=== PATIENT | male | born 1955 | race Caucasian/White ===

== ENCOUNTER → 2020-12-13 13:54 | Outpatient (CLI) | payer MEDICARE, SELFPAY ==
[2020-06-15 10:31] VITALS: BMI 28.7
--- NOTE | 2020-12-13 13:59 | CT_ITS ---
STUDY: CT SCAN FOOT LEFT REASON FOR EXAM: Male, 65 years old. FX OF TALUS RADIATION DOSAGE (If Supplied By Facility): CTDIvol = ( 15.35 ) mGy, DLP = ( 372.95 ) mGycm. Individualized dose optimization techniques were used for this CT.? TECHNIQUE: Multiple axial tomographic images were obtained without intravenous contrast aspiration. Coronal and sagittal reconstruction was obtained as well. COMPARISON: None. FINDINGS: There is evidence of a plantar spur of the calcaneus. Questionable tiny avulsion fracture along the anterior aspect of the first cuneiform bone at the level of the first tarsometatarsal joint. Soft tissue swelling. CT/Extremity Lower without Contra IMPRESSION: Questionable nondisplaced avulsion fracture along the anterior aspect of the first cuneiform bone. Calcaneal plantar spur. Soft tissue swelling. Electronically Signed: Indio Orozco MD at 14:37 EDT , Service support ,
== END ==
PROVIDERS: PCP Family Medicine; Referring Provider Orthopaedic Surgery; Visit Provider Orthopaedic Surgery
DX: S92.125A Nondisplaced fracture of body of left talus, initial encounter for closed fracture (principal); X58.XXXA Exposure to other specified factors, initial encounter; M77.32 Calcaneal spur, left foot
CPT/HCPCS: 73700

== ENCOUNTER 2022-02-17 11:15 | Inpatient (IN) | payer MEDICARE, SELFPAY ==
[2022-02-17] VITALS (12 sets, daily range): BP systolic 128–157; BP diastolic 74–94; PULSE 48–68; RESP 16–18; TEMP 36.5–36.7; O2SAT 98–100; BMI 27.1; BMI 27.6
--- NOTE | 2022-02-17 07:09 | ECHOD_ITS ---
Reason For Study: Murmur Procedure This was a 2D Doppler, Color Flow transthoracic echocardiogram. The exam was of adequate technical quality. Exam performed in department. Left Ventricle Normal LV size. Left ventricular systolic function is normal. The estimated ejection fraction is 65 %. No evidence for diastolic dysfunction. No regional wall motion abnormalities noted. Right Ventricle Normal RV size. Normal systolic function. Atria The left atrium is mildly enlarged. Normal right atrium. No doppler evidence for ASD. Mitral Valve There is no mitral annular calcification. Normal mitral valve. Mild (1+) mitral valve insufficiency. Tricuspid Valve Normal tricuspid valve. Mild tricuspid valve insufficiency. Right ventricular systolic pressure estimated to be 28 mmHg. Aortic Valve Trisinus/trileaflet aortic valve. Mild diffuse aortic valve thickening. Moderate focal aortic valve calcification. Pulmonic Valve The pulmonic valve is not well visualized. Mild (1+) pulmonic valve insufficiency. Great Vessels Normal sized aortic root. Pericardium/Pleural No pericardial effusion. MMode/2D Measurements & Calculations LVIDd: 5.3 cm IVSd: 1.2 cm Ao root diam: 3.5 cm LVIDs: 3.4 cm LVPWd: 1.0 cm RVDd: 3.8 cm FS: 36.7 % LAV(MOD-bp): 67.5 ml LVAd ap4: 27.3 cm2 SV(MOD-sp4): 54.0 ml LAV(MOD-bp) Indexed: 32.7 ml/m2 LVLd ap4: 7.9 cm LAV(MOD-sp2): 54.3 ml EDV(MOD-sp4): 78.7 ml LAV(MOD-sp4): 74.6 ml EDV(sp4-el): 80.0 ml LVAs ap4: 13.6 cm2 LVLs ap4: 6.5 cm ESV(MOD-sp4): 24.8 ml ESV(sp4-el): 24.1 ml EF(MOD-sp4): 68.6 % EF(sp4-el): 69.9 % SV(sp4-el): 55.9 ml LA A4 area: 24.2 cm2 LA dimension(2D): 4.4 cm RA A4 area: 14.7 cm2 Doppler Measurements & Calculations MV E max jean-pierre: 86.0 cm/sec Lat Peak E' Jean-Pierre: 10.2 cm/sec Med Peak E' Jean-Pierre: 7.7 cm/sec MV A max jean-pierre: 79.7 cm/sec E/E' lat: 8.4 E/E' med: 11.2 MV E/A: 1.1 Ao V2 max: 185.6 cm/sec LV V1 max: 146.5 cm/sec PA V2 max: 114.3 cm/sec Ao max P.8 mmHg LV V1 max P.6 mmHg Ao V2 mean: 113.6 cm/sec Ao mean P.0 mmHg Ao V2 VTI: 35.2 cm TR max jean-pierre: 248.1 cm/sec TR max P.6 mmHg ECHO/Echo Complete Interpretation Summary Left ventricular systolic function is normal. The estimated ejection fraction is 65 %. The left atrium is mildly enlarged. Mild (1+) mitral valve insufficiency. Mild tricuspid valve insufficiency. Mild diffuse aortic valve thickening. Moderate focal aortic valve calcification. Mild (1+) pulmonic valve insufficiency. Right ventricular systolic pressure estimated to be 28 mmHg. No evidence for diastolic dysfunction. Ordering Physician: Johnnie Montez Referring Physician: Luis Conroy Performed By: Starla Dunbar, NELIDA, RVT
--- NOTE | 2022-02-17 08:33 | STRESSREP_ITS ---
Stress Test Report Date: 02-17-2022 Procedure: Pharmacologic stress nuclear imaging study Indications: Angina pectoris; coronary artery calcification; hyperlipidemia; hypertension Consent: Per the patient Procedure: The patient underwent pharmacologic (Regadenoson 0.4mg ) evaluation with a peak heart rate of 112 beats per minute (73%predicted maximal heart rate) and a resting blood pressure of 158/90 mmHg and a peak blood pressure of 158/90 mmHg. The baseline ECG demonstrated sinus bradycardia. The peak pharmacologic ECG demonstrated no obvious ECG changes. There were no cardiac dysrhythmias pretest, during pharmacologic infusion, or recovery. There was no complaint of chest discomfort during pharmacologic infusion or recovery. The examination was discontinued secondary to completion of protocol. Impression: 1. Pharmacologic (Regadenoson) evaluation 2. Peak pharmacologic ECG with no obvious ECG changes. 3. There were no cardiac dysrhythmias pretest, during pharmacologic infusion, or recovery. 4. Nuclear images pending Myocardial perfusion imaging study: Technique: The patient was injected with 13.9 millicuries of technetium 99m Cardiolite and subsequently rest SPECT Cardiolite nuclear imaging was obtained in the horizontal long, vertical long, and short axis views. The patient underwent pharmacologic (Regadenoson) evaluation with a peak heart rate of 112 beats per minute (73% percent predicted maximal heart rate) and a resting blood pressure of 158/90 mmHg and a peak blood pressure of 158/90 mmHg. The patient was inj ected with 43.4 millicuries of technetium 99m Cardiolite and subsequently stress SPECT Cardiolite nuclear imaging was obtained in the horizontal long, vertical long, and short axis views. A gated Cardiolite study at peak stress was obtained. Interpretation: Rest and stress SPECT Cardiolite nuclear imaging status post realignment, normalization, and attenuation correction demonstrate at rest relative uniform tracer uptake and myocardial perfusion appearing within normal limits. Status post stress there is notation of diminished myocardial perfusion/tracer uptake in portions of the mid to distal anterior, anterior apical, and inferior apical segments. There is diminished end-systolic thickening and brightening. The gated Cardiolite study demonstrates myocardial thickening and inward wall motion. The reported LVEF is 61%. Impression: 1. Rest and stress SPECT current nuclear imaging demonstrate myocardial perfusion changes concerning for an area of stress-induced myocardial ischemia involving portions of the mid to distal anterior, anterior apical, and inferoapical segments. 2. The gated Cardiolite study reports an LVEF of 61%. This note was generated with [employer] software. It may contain incorrect words, spelling, and punctuation that were not noted in checking the note before signing.
--- NOTE | 2022-02-17 10:30 | RAD_ITS ---
STUDY: X-RAY CHEST REASON FOR EXAM: Male, 67 years old. chest pain TECHNIQUE: PA or AP COMPARISON: None. FINDINGS: Mild right lower lobe fibrosis or atelectasis. There is no demonstrated pleural abnormality. Normal size heart. Normal mediastinum and nicolas. Normal visualized pulmonary arteries. Atherosclerotic vascular calcification of the aortic arch Degenerative changes of thoracic spine. Right posterior lateral fourth, fifth, sixth, and seventh rib fractures age indeterminate. Status post left shoulder reverse arthroplasty. Left posterior lateral third, fourth, fifth, and sixth rib fractures age indeterminate. There is no demonstrated abnormality of the visualized soft tissue structures of the upper abdomen. RAD/Chest 1 View IMPRESSION: Mild right lower lobe fibrosis or atelectasis. Bilateral rib fractures detailed above age-indeterminate. Left shoulder reverse arthroplasty. Electronically Signed: Cesar Albarran MD, SAMEERA at 10:58 EDT ,
[2022-02-17 10:42] LABS: Absolute Lymphocyte Count 1.22 X10^3/uL (0.83-4.51); Absolute Neutrophil Count 5.1 X10^3/uL (2.0-7.7); Basophil# 0.05 X10^3/uL; Basophil% 0.7 % (0-1); Eosinophil# 0.14 X10^3/uL; Eosinophils% 1.9 % (0-5); Hematocrit 42.1 % (40-54); Hemoglobin 14.2 g/dL (13.0-16.5); Lymphocyte # 1.22 X10^3/ul (0.83-4.51); Lymphocyte % 16.8 % (19-41); Mean Corp Hgb Conc 33.7 g/dL (32-36); Mean Corpuscular Hgb 29.8 pg (27.0-32.0); Mean Corpuscular Volume 88.4 fL (80-94); Mean Platelet Vol. 9.2 fl (6.2-12.0); Monocyte# 0.71 X10^3/uL; Monocyte% 9.8 % (0-10); NRBC Flagged by Analyzer 0 % (0-5); Neutrophil # 5.11 X10^3/uL (2.7-7.7); Neutrophil % 70.5 % (47-70); Platelet Count 230 K/mm3 (150-450); RBC Distribution Width CV 13.2 % (11.6-14.6); RBC Distribution Width SD 42.6 fl (35.1-43.9); Red Blood Count 4.76 M/mm3 (4.6-6.2); White Blood Count 7.3 K/mm3 (4.4-11.0)
[2022-02-17 11:02] LABS: Anion Gap 6 (5-15); BUN 17 mg/dL (7-18); BUN/Creat Ratio 21.4 RATIO (10-20); Calcium,Total 9.2 mg/dL (8.5-10.1); Chloride 109 mmol/L (98-107); EST Glomerular Filtration Rate 103 mL/min (>60); Est Glom Filt Rate - Afr Amer 125 mL/min (>60); Estimated Creatinine Clearance 91.25 ml/min; Glucose 101 mg/dL (74-106); Sodium Level 140 mmol/L (136-145)
[2022-02-17 11:03] LABS: International Normalized Ratio 1.1; Prothrombin Time (Protime)PT. 13.5 SECONDS (11.7-14.9)
--- NOTE | 2022-02-17 11:17 | PCM.CONS.C ---
Assessment & Plan Assessment/Plan (1) Angina pectoris: PLAN: The patient has symptoms compatible with angina pectoris. He has been found to have an abnormal pharmacologic stress nuclear imaging study. He has been recommended for further evaluation with diagnostic cardiac catheterization. The procedure and risks have been discussed with him. He was agreeable to this approach. (2) Abnormal stress test: PLAN: Again the patient has an abnormal pharmacologic stress nuclear imaging study concerning for stress-induced myocardial ischemia. He will continue medical therapy as deemed appropriate. He will proceed with further evaluation with diagnostic cardiac catheterization. (3) Coronary artery calcification: PLAN: The patient has been previously noted on his other noninvasive studies to have concerns of coronary artery calcification. This does increase his risk of having atherosclerotic coronary artery disease. He has now been found to have an abnormal pharmacologic stress nuclear imaging study. He will continue medical therapy as deemed appropriate. (4) Cardiac murmur: PLAN: He did have a transthoracic echocardiogram performed. He does have an element of mild MR/TR. He also has mild diffuse thickening of the aortic valve with moderate focal aortic valve calcification. These findings may be contributing to his cardiac murmur. (5) Pure hypercholesterolemia: PLAN: The patient will continue risk factor evaluation/care as deemed appropriate. (6) Essential hypertension: PLAN: The patient's blood pressure will be followed. He will continue medical management. Addt'l Comments The above was discussed and reviewed with the patient. He was agreeable to this approach. This note was generated using a voice recognition system and there may be incorrect words, spelling or punctuation that were not noted when reviewing the office note prior to saving. HPI Consult Data Date of Consult: 02/17/22 HPI Narrative HPI Narrative: LISANDRO HYDE, is a 67 year old white male who presents for angina pectoris and an abnormal stress nuclear imaging study concerning for anterior myocardial ischemia. He states that he has been having, for some time now, episodes with exertion of a left sided left pectoral chest discomfort.? He places his hand over his left chest area.? He states it feels like a drag on him when he has this sensation.? He also notes he will have to stop and slow down my breathing .? The discomfort spontaneously resolves.? He feels he can then move on.? It does not happen every time he exerts himself.? It does not happen at rest or at night.? He does not believe it has been associated with nausea, emesis, or diaphoresis.? There has been no reports of palpitations, near-syncope, or syncope.? He states he has not undergone any cardiovascular evaluation for the symptoms. It appears that in January 2021 he was evaluated at a emergency department.? He underwent evaluation which did include a chest CT scan.? Based upon the report he had no evidence of thromboembolic disease.? There was a comment that he had coronary artery calcifications present. He had an ECG in the outpatient office on 01-20-2022. At that time he was in sinus bradycardia with no acute ECG changes. Since that time he has undergone further outpatient noninvasive evaluation. This has included a transthoracic echocardiogram and a stress nuclear imaging study (pharmacologic). Of note his pharmacologic stress nuclear imaging study, which is noted below, demonstrated myocardial perfusion changes in the anterior, anteroapical, inferoapical distributions concerning for stress-induced myocardial ischemia. Thus, it was recommended patient be brought into the hospital for further evaluation and care with diagnostic cardiac catheterization. FOR[facility], [facility] Medical History bilateral shoulder surgery Essential hypertension GERD (gastroesophageal reflux disease) HTN (hypertension) Hyperlipidemia Pure hypercholesterolemia Home Medications atorvastatin 40 mg tablet 40 mg PO QHS 01/17/22 [History Last Taken Unknown] hydrochlorothiazide 12.5 mg tablet 12.5 mg PO DAILY 01/17/22 [History Last Taken Unknown] lisinopril 40 mg tablet 40 mg PO DAILY 01/17/22 [History Last Taken Unknown] sertraline 100 mg tablet 100 mg PO DAILY 01/17/22 [History Last Taken Unknown] aspirin 81 mg chewable tablet 81 mg PO DAILY PRN Pain 01/20/22 [History Last Taken Unknown] Allergy/AdvReac Type Severity Reaction Status Date / Time codeine Allergy Mild n/v Verified 01/20/22 09:59 Sulfa (Sulfonamide AdvReac Mild gi upset Verified 01/20/22 09:59 Antibiotics) Family History Mother Breast cancer Surgical History H/O sinus surgery History of arthroplasty of left shoulder History of shoulder replacement Social History household members: spouse housing: house current occupational status: retired pets and animals: Yes Smoking Status: Never smoker alcohol intake: current alcohol intake frequency: holidays/special occasions only substance use type: former substance user and marijuana caffeine: Yes Type: coffee Number of servings: 3 what type of physical activity do you participate in: none do you feel safe at home: Yes ROS Constitutional Constitutional: Reports as per HPI Eyes Eyes: Reports as per HPI ENT HEENT: Reports as per HPI Cardiovascular Cardiovascular: Reports chest pain with activity and dyspnea on exertion Respiratory/Chest Respiratory/Chest: Reports dyspnea on exertion Gastrointestinal Gastrointestinal: Reports as per HPI Genitourinary Genitourinary: Reports as per HPI Musculoskeletal Musculoskeletal: Reports as per HPI Integumentary Integumentary: Reports as per HPI Neurologic Neurologic: Reports as per HPI Psychiatric Psychiatric: Reports as per HPI Physical Exam Const alert, oriented x3, no apparent distress and healthy appearing Orientation / Consciousness: awake HEENT normocephalic, head/scalp atraumatic and hearing grossly normal bilaterally Eyes PERRL, EOMs intact bilaterally, conjunctivae normal and no scleral icterus Neck full ROM, supple and no JVD Carotids: normal carotid upstroke Resp normal respiratory effort and clear to auscultation bilaterally Cardio regular rate, regular rhythm, S1 normal heart sound and S2 normal heart sound Heart Sounds: murmur systolic II/ mid left sternal border and LVOT GI normal to inspection, nondistended, normoactive bowel sounds Extremity no pedal edema Skin no rashes or lesions noted Risk Stratification Risk Stratification Applicable: Yes Age >/= 65: Yes >/= 3 CAD Risk Factors (HTN, HLD, DM, family hx of CAD, or current smoker): No Aspirin Use in the Past 7 Days: Yes Severe Angina (>/= episodes in 24 hours): Yes EKG ST Changes >/= 0.5mm: No Positive Cardiac Marker: No CHRISTIANO Risk Stratification Score: 3 CHRISTIANO % Risk: 13% Risk Objective Data Vital Signs: Weight: 189 lb Body Mass Index (BMI) 27.1 Lab / Micro Data Result Diagrams: 02/17/22 10:35 02/17/22 10:35 Labs: Laboratory Results - last 24 hr 02/17/22 10:35: WBC 7.3, RBC 4.76, Hgb 14.2, Hct 42.1, MCV 88.4, MCH 29.8, MCHC 33.7, RDW Std Deviation 42.6, RDW Coeff of Juan 13.2, Plt Count 230, MPV 9.2, Immature Gran % (Auto) 0.300, Neut % (Auto) 70.5 H, Lymph % (Auto) 16.8 L, [place] % (Auto) 9.8, Eos % (Auto) 1.9, Baso % (Auto) 0.7, Absolute Neuts (auto) 5.1, Absolute Lymphs (auto) 1.22, Nucleated RBC % 0 02/17/22 10:35: PT 13.5, INR 1.1 02/17/22 10:35: Sodium 140, Potassium 4.0, Chloride 109 H, Carbon Dioxide 25.0, Anion Gap 6, BUN 17, Creatinine 0.80, Estim Creat Clear Calc 91.25, Est GFR (MDRD) Af Amer 125, Est GFR (MDRD) Non-Af 103, BUN/Creatinine Ratio 21.4 H, Glucose 101, Calcium 9.2 Cardiology Labs/Tests 02/17/22 10:35: WBC 7.3, RBC 4.76, Hgb 14.2, Hct 42.1, MCV 88.4, MCH 29.8, MCHC 33.7, Plt Count 230, MPV 9.2, Immature Gran % (Auto) 0.300, Neut % (Auto) 70.5 H, Lymph % (Auto) 16.8 L, [place] % (Auto) 9.8, Eos % (Auto) 1.9, Baso % (Auto) 0.7, Absolute Neuts (auto) 5.1, Nucleated RBC % 0 02/17/22 10:35: PT 13.5, INR 1.1 02/17/22 10:35: Sodium 140, Potassium 4.0, Chloride 109 H, Carbon Dioxide 25.0, Anion Gap 6, BUN 17, Creatinine 0.80, Est GFR (MDRD) Af Amer 125, Est GFR (MDRD) Non-Af 103, BUN/Creatinine Ratio 21.4 H, Glucose 101, Calcium 9.2 Rhythm: Sinus rhythm EKG: Sinus rhythm/sinus bradycardia ECHO: Interpretation Summary Left ventricular systolic function is normal. The estimated ejection fraction is 65 %. The left atrium is mildly enlarged. Mild (1+) mitral valve insufficiency. Mild tricuspid valve insufficiency. Mild diffuse aortic valve thickening. Moderate focal aortic valve calcification. Mild (1+) pulmonic valve insufficiency. Right ventricular systolic pressure estimated to be 28 mmHg. No evidence for diastolic dysfunction. Stress Test: Stress Test Report Date: 02-17-2022 Procedure: Pharmacologic stress nuclear imaging study? Indications: Angina pectoris; coronary artery calcification; hyperlipidemia; hypertension Consent: Per the patient Procedure: The patient underwent pharmacologic (Regadenoson 0.4mg ) evaluation with a peak heart rate of 112 beats per minute (73%predicted maximal heart rate) and a resting blood pressure of 158/90 mmHg and a peak blood pressure of 158/90 mmHg. The baseline ECG demonstrated sinus bradycardia.? The peak pharmacologic ECG demonstrated no obvious ECG changes. There were no cardiac dysrhythmias pretest, during pharmacologic infusion, or recovery. There was no complaint of chest discomfort during pharmacologic infusion or recovery. The examination was discontinued secondary to completion of protocol. Impression: 1.? Pharmacologic (Regadenoson) evaluation 2.? Peak pharmacologic ECG with no obvious ECG changes. 3.? There were no cardiac dysrhythmias pretest, during pharmacologic infusion, or recovery. 4.? Nuclear images pending Myocardial perfusion imaging study: Technique: The patient was injected with 13.9 millicuries of technetium 99m Cardiolite and subsequently rest SPECT Cardiolite nuclear imaging was obtained in the horizontal long, vertical long, and short axis views. The patient underwent pharmacologic (Regadenoson) evaluation with a peak heart rate of 112 beats per minute (73% percent predicted maximal heart rate) and a resting blood pressure of 158/90 mmHg and a peak blood pressure of 158/90 mmHg. The patient was injected with 43.4 millicuries of technetium 99m Cardiolite and subsequently stress SPECT Cardiolite nuclear imaging was obtained in the horizontal long, vertical long, and short axis views.? A gated Cardiolite study at peak stress was obtained. Interpretation: Rest and stress SPECT Cardiolite nuclear imaging status post realignment, normalization, and attenuation correction demonstrate at rest relative uniform tracer uptake and myocardial perfusion appearing within normal limits.? Status post stress there is notation of diminished myocardial perfusion/tracer uptake in portions of the mid to distal anterior, anterior apical, and inferior apical segments.? There is diminished end-systolic thickening and brightening.? The gated Cardiolite study demonstrates myocardial thickening and inward wall motion.? The reported LVEF is 61%. Impression: 1.? Rest and stress SPECT current nuclear imaging demonstrate myocardial perfusion changes concerning for an area of stress-induced myocardial ischemia involving portions of the mid to distal anterior, anterior apical, and inferoapical segments. 2.? The gated Cardiolite study reports an LVEF of 61%. Radiography Diagnostic Testing: Radiology Impression Chest X-Ray 02/17/22 10:30 IMPRESSION: Mild right lower lobe fibrosis or atelectasis. Bilateral rib fractures detailed above age-indeterminate. Left shoulder reverse arthroplasty. Electronically Signed: Cesar Albarran MD, SAMEERA at 10:58 EDT ,
--- NOTE | 2022-02-17 12:09 | CASEMGMT ---
According to [facility], the following are in-network tertiary facilities: [facility], [place], [facility], [facility], [facility], [facility], and . Juan Antonio [facility]
--- NOTE | 2022-02-17 12:46 | CL.D_ITS ---
Patient Name: LISANDRO HYDE Study Date: 02/17/2022 Performing: Johnnie Montez MD Ht: 70 inches 177.8 cm : 1955 Wt: 191.2 lbs 86.63 kg Age: 67 Gender: male BSA: 2.05 PROCEDURE(S) PERFORMED [id number])[facility] CLINICAL PROFILE AND INDICATIONS Indications: Worsening Angina, Suspected CAD, Valvular Disease Heart Failure: None Stress/Imaging Date: 02/17/2022tress Test with SPECT MPI: Positive Intermediate Risk Angina Classification Anginal Classification w/in 2 Weeks: CCS III CAD Presentations: Unstable angina. CONCLUSIONS [place] Multivessel CAD Left to Right collateral flow RECOMMENDATIONS Risk factor modification Medical therapy Surgery consult for coronary revascularization DESCRIPTION OF PROCEDURE The patient arrived to the procedure lab. The risks and benefits of the procedure as well as a full description of our services here and current unavailability of surgical backup were fully explained to the patient and/or their significant other prior to the catheterization. The Timeout was completed, verifying the correct patient and procedure. The patient's procedural site was prepped and draped in the usual fashion. Local anesthetic was given subcutaneously to right radial region with Lidocaine 2%. Using a modified Seldinger technique, arterial access was obtained via the right radial artery, a 6Fr sheath was inserted. Left Coronary Artery selective angiography was performed in multiple views using a 5 Fr. 4.0 [place] catheter. Right Coronary Artery selective angiography was then performed in multiple views using a 5 Fr. 4.0 [place] catheter. Left Coronary Artery selective angiography was performed in multiple views using a 5 Fr. JL3.5 catheter.The arterial sheath was pulled and a TR Band was applied for hemostasis. 9cc of air CORONARY ANGIOGRAPHY DOMINANCE: Right Dominant LEFT HEART ASSESSMENT Left Ventricular Ejection Fraction: Not assessed LEFT MAIN: Mild calcification LEFT ANTERIOR DESCENDING ARTERY: PROX LAD: Severe calcification, Mild luminal irregularities less than 30% MID LAD: at the level of the SP and DX: subtotally occluded with the mid to distal LAD filling late SEPTAL: proximal: 85 % Stenosis CIRCUMFLEX ARTERY: Mild luminal irregularities OM 1: Mid - eccentric: 75 % Stenosis OM 2: Proximal - 50 % Stenosis, Mid - 25 % Stenosis RIGHT CORONARY ARTERY: PROX RCA: Severe calcification, Mild luminal irregularities less than 30% MID RCA: Mild luminal irregularities less than 30% RT PDA: Ostial - subtotally occluded: remainder of the vessel filling late COLLATERAL FLOW: Collateral flow from Left to Right COMPLICATIONS No Complications PROCEDURE MEDICATIONS Fentanyl 50 mcg IV Versed 1 mg IV Fentanyl 50 mcg IV Versed 1 mg IV Aspirin (325mg) 1 Tabs PO @ 02/17/2022 11:10:26 SUMMARY OF HEMODYNAMIC DATA Time AIR REST ECG 10:41:44 ECG 11:33:47 AO 113/72 (90) SA 12:01:42 Signed By Johnnie Montez MD On 02/17/2022 12:46:06 Johnnie Montez MD
[2022-02-17 13:29] LABS: Partial Thromboplast Time 30.4 Seconds (24.1-36.2)
[2022-02-17] MEDS: 0.9% Normal Saline 1,000 ML 75 ML IV (14:18)
[2022-02-17] MEDS: HEPARIN/D5w 25,000 UNITS 25,000 UNITS/250 ML IV.SOLN. 12 UNITS CONT INF (16:54)
[2022-02-17] MEDS: Metoprolol Tartrate 25 MG Tablet PO (21:43)
[2022-02-17] MEDS: Atorvastatin Calcium 40 MG Tablet PO (21:43)
[2022-02-17 22:52] LABS: Partial Thromboplast Time 53.7 Seconds (24.1-36.2)
[2022-02-17] MEDS: Heparin Injection (Vial) 5,000 UNIT/ML VIAL IV (23:10)
[2022-02-18] VITALS (11 sets, daily range): BP systolic 128–146; BP diastolic 74–82; PULSE 51–74; RESP 16–18; TEMP 36.5–37.3; O2SAT 97–99
[2022-02-18 05:59] LABS: Absolute Lymphocyte Count 1.64 X10^3/uL (0.83-4.51); Absolute Neutrophil Count 4.6 X10^3/uL (2.0-7.7); Basophil# 0.04 X10^3/uL; Basophil% 0.5 % (0-1); Eosinophil# 0.25 X10^3/uL; Eosinophils% 3.4 % (0-5); Hematocrit 43.8 % (40-54); Hemoglobin 14.3 g/dL (13.0-16.5); Lymphocyte # 1.64 X10^3/ul (0.83-4.51); Lymphocyte % 22.4 % (19-41); Mean Corp Hgb Conc 32.6 g/dL (32-36); Mean Corpuscular Hgb 29.4 pg (27.0-32.0); Mean Corpuscular Volume 89.9 fL (80-94); Mean Platelet Vol. 9.5 fl (6.2-12.0); Monocyte# 0.78 X10^3/uL; Monocyte% 10.6 % (0-10); NRBC Flagged by Analyzer 0 % (0-5); Neutrophil % 62.8 % (47-70); Platelet Count 230 K/mm3 (150-450); RBC Distribution Width CV 13.2 % (11.6-14.6); RBC Distribution Width SD 43.6 fl (35.1-43.9); Red Blood Count 4.87 M/mm3 (4.6-6.2); White Blood Count 7.3 K/mm3 (4.4-11.0)
[2022-02-18 06:10] LABS: Partial Thromboplast Time 82.4 Seconds (24.1-36.2)
[2022-02-18 06:33] LABS: Anion Gap 4 (5-15); BUN 15 mg/dL (7-18); BUN/Creat Ratio 17.9 RATIO (10-20); Chloride 107 mmol/L (98-107); Creatinine, Serum 0.84 mg/dL (0.70-1.30); EST Glomerular Filtration Rate 97 mL/min (>60); Est Glom Filt Rate - Afr Amer 117 mL/min (>60); Glucose 97 mg/dL (74-106); Potassium 5.1 mmol/L (3.5-5.1); Sodium Level 137 mmol/L (136-145)
--- NOTE | 2022-02-18 08:10 | NURSING ---
In spoke to Marina at [facility] transfer line she stated they are still waiting on a bed and that they are d/c dependent.
[2022-02-18] MEDS: Aspirin 81 MG TAB.CHEW PO (08:54)
[2022-02-18] MEDS: Metoprolol Tartrate 25 MG Tablet PO (08:54)
[2022-02-18] MEDS: Lisinopril 40 MG Tablet PO (08:54)
[2022-02-18] MEDS: hydroCHLOROthiazide 12.5mg 12.5 MG PO (08:54)
[2022-02-18] MEDS: Sertraline 100 MG Tablet PO (08:54)
[2022-02-18] MEDS: HEPARIN/D5w 25,000 UNITS 25,000 UNITS/250 ML IV.SOLN. 12 UNITS CONT INF (08:59)
--- NOTE | 2022-02-18 12:26 | PCM.PN.CARD ---
Subjective Subjective The patient is awake and alert. He denies any ongoing chest discomfort. Objective Data Vital Signs: Vital Signs Temp Pulse Resp BP Pulse Ox O2 Del Method 98.0 F 62 16 133/81 H 98 Room Air 02/18/22 08:51 02/18/22 08:54 02/18/22 08:51 02/18/22 08:54 02/18/22 08:51 02/18/22 08:51 Oxygen Delivery Method Room Air Weight: 192 lb 10.944 oz Body Mass Index (BMI) 27.6 Intake & Output: Intake and Output for Last 24 Hours 02/16/22 02/17/22 02/18/22 23:59 23:59 23:59 Intake Total 716.5 / 716.5 127.63 / 127.63 Balance 716.5 / 716.5 127.63 / 127.63 Lab / Micro Data Result Diagrams: 02/18/22 05:25 02/18/22 05:25 Labs: Laboratory Results - last 24 hr 02/17/22 10:35: APTT 30.4 02/17/22 22:45: APTT 53.7 H 02/18/22 05:25: WBC 7.3, RBC 4.87, Hgb 14.3, Hct 43.8, MCV 89.9, MCH 29.4, MCHC 32.6, RDW Std Deviation 43.6, RDW Coeff of Juan 13.2, Plt Count 230, MPV 9.5, Immature Gran % (Auto) 0.300, Neut % (Auto) 62.8, Lymph % (Auto) 22.4, [place] % (Auto) 10.6 H, Eos % (Auto) 3.4, Baso % (Auto) 0.5, Absolute Neuts (auto) 4.6, Absolute Lymphs (auto) 1.64, Nucleated RBC % 0 02/18/22 05:25: Sodium 137, Potassium 5.1, Chloride 107, Carbon Dioxide 26.0, Anion Gap 4 L, BUN 15, Creatinine 0.84, Estim Creat Clear Calc 86.90, Est GFR (MDRD) Af Amer 117, Est GFR (MDRD) Non-Af 97, BUN/Creatinine Ratio 17.9, Glucose 97, Calcium 9.0 02/18/22 05:25: APTT 82.4 H Micro: Microbiology 02/17/22 15:25 Nasal Secretion SARS-CoV-2 Antigen (Rapid) - Final Cardiology Labs/Tests 02/17/22 10:35: APTT 30.4 02/17/22 22:45: APTT 53.7 H 02/18/22 05:25: WBC 7.3, RBC 4.87, Hgb 14.3, Hct 43.8, MCV 89.9, MCH 29.4, MCHC 32.6, Plt Count 230, MPV 9.5, Immature Gran % (Auto) 0.300, Neut % (Auto) 62.8, Lymph % (Auto) 22.4, [place] % (Auto) 10.6 H, Eos % (Auto) 3.4, Baso % (Auto) 0.5, Absolute Neuts (auto) 4.6, Nucleated RBC % 0 02/18/22 05:25: Sodium 137, Potassium 5.1, Chloride 107, Carbon Dioxide 26.0, Anion Gap 4 L, BUN 15, Creatinine 0.84, Est GFR (MDRD) Af Amer 117, Est GFR (MDRD) Non-Af 97, BUN/Creatinine Ratio 17.9, Glucose 97, Calcium 9.0 02/18/22 05:25: APTT 82.4 H Rhythm: Sinus rhythm Physical Exam Const alert, oriented x3, no apparent distress and healthy appearing Orientation / Consciousness: awake HEENT normocephalic, head/scalp atraumatic and hearing grossly normal bilaterally Eyes PERRL, EOMs intact bilaterally, conjunctivae normal and no scleral icterus Neck full ROM, supple and no JVD Carotids: normal carotid upstroke Resp normal respiratory effort and clear to auscultation bilaterally Cardio regular rate, regular rhythm, S1 normal heart sound and S2 normal heart sound Heart Sounds: murmur systolic II/ mid left sternal border and LVOT GI normal to inspection, nondistended, normoactive bowel sounds Extremity no pedal edema Extremity Narrative: Right radial artery area: Pulse 2+/4+: No bruit: No ecchymoses: No hematoma Skin no rashes or lesions noted Psych mental status grossly normal Assessment & Plan Assessment/Plan (1) Angina pectoris: PLAN: The patient has symptoms compatible with angina pectoris. He has been found to have an abnormal pharmacologic stress nuclear imaging study. The patient has undergone further evaluation with diagnostic cardiac catheterization. He was found to have angiographically significant appearing CAD especially involving the LAD, LCx, and RCA distributions. He is continuing medical therapy. He is pending transfer to [facility] for further evaluation for CABG. (2) Coronary artery calcification: PLAN: The patient has been previously noted on his other noninvasive studies to have concerns of coronary artery calcification. This does increase his risk of having atherosclerotic coronary artery disease. He has now been found to have an abnormal pharmacologic stress nuclear imaging study. He has undergone additional evaluation and care as noted. At the present time he will continue medical therapy. This does include IV heparin. He is pending transfer to [facility] for CABG. (3) Cardiac murmur: PLAN: He did have a transthoracic echocardiogram performed. He does have an element of mild MR/TR. He also has mild diffuse thickening of the aortic valve with moderate focal aortic valve calcification. These findings may be contributing to his cardiac murmur. (4) Pure hypercholesterolemia: PLAN: The patient will continue risk factor evaluation/care as deemed appropriate. (5) Essential hypertension: PLAN: The patient's blood pressure will be followed. He will continue medical management. Addt'l Comments This note was generated using a voice recognition system and there may be incorrect words, spelling or punctuation that were not noted when reviewing the office note prior to saving. Procedure Criteria Type of Procedure Procedure Type: Elective Elective Risks - COVID COVID Risk Discussion: The surgeon/proceduralist and patient have discussed in detail the risk of exposure to and/or potential harm posed by the COVID-19 virus with having a surgery/procedure at this time versus the risk of delaying the surgery/procedure. It is not possible to know either the risk of delaying the surgery or procedure or chance of getting an infection with perfect accuracy, but a joint decision was made between the patient and the surgeon/proceduralist to proceed at this time with the scheduled surgery/procedure as indicated on the consent form.
[2022-02-18 14:04] LABS: Partial Thromboplast Time 63.9 Seconds (24.1-36.2)
[2022-02-18 20:21] LABS: Partial Thromboplast Time 56.6 Seconds (24.1-36.2)
[2022-02-18] MEDS: ALPRAZolam 0.25 MG Tablet PO (20:54)
[2022-02-18] MEDS: Atorvastatin Calcium 40 MG Tablet PO (20:55)
[2022-02-19] VITALS (11 sets, daily range): BP systolic 118–125; BP diastolic 70–78; PULSE 47–64; RESP 12–18; TEMP 36.4–36.7; O2SAT 96–98
[2022-02-19] MEDS: HEPARIN/D5w 25,000 UNITS 25,000 UNITS/250 ML IV.SOLN. 12 UNITS CONT INF (05:05)
[2022-02-19 05:27] LABS: Partial Thromboplast Time 70.5 Seconds (24.1-36.2)
[2022-02-19 05:34] LABS: Anion Gap 6 (5-15); BUN 17 mg/dL (7-18); BUN/Creat Ratio 20.6 RATIO (10-20); Chloride 106 mmol/L (98-107); Creatinine, Serum 0.83 mg/dL (0.70-1.30); EST Glomerular Filtration Rate 98 mL/min (>60); Est Glom Filt Rate - Afr Amer 119 mL/min (>60); Estimated Creatinine Clearance 87.95 ml/min; Glucose 102 mg/dL (74-106); Potassium 4.1 mmol/L (3.5-5.1); Sodium Level 137 mmol/L (136-145)
[2022-02-19] MEDS: Lisinopril 40 MG Tablet PO (08:28)
[2022-02-19] MEDS: Aspirin 81 MG TAB.CHEW PO (08:28)
[2022-02-19] MEDS: Sertraline 100 MG Tablet PO (08:28)
[2022-02-19] MEDS: hydroCHLOROthiazide 12.5mg 12.5 MG PO (08:28)
--- NOTE | 2022-02-19 09:42 | NURSING ---
I spoke with Marina at [facility] transfer line she stated they are still waiting on a bed likely will not be today possibly tomorrow.
[2022-02-19] MEDS: Metoprolol Tartrate 25 MG Tablet 12.5 MG PO ×2 (10:35→21:03)
--- NOTE | 2022-02-19 13:03 | PN.CARD_ITS ---
Subjective Subjective The patient is awake and alert. He has been up in bed and ambulating in his room. He has had no acute cardiovascular complaints. Objective Data Vital Signs: Vital Signs Temp Pulse Resp BP Pulse Ox O2 Del Method 97.8 F 64 12 122/78 H 97 Room Air 02/19/22 08:25 02/19/22 10:35 02/19/22 08:25 02/19/22 10:35 02/19/22 08:25 02/19/22 08:30 Oxygen Delivery Method Room Air Weight: 192 lb 10.944 oz Body Mass Index (BMI) 27.6 Intake & Output: Intake and Output for Last 24 Hours 02/17/22 02/18/22 02/19/22 23:59 23:59 23:59 Intake Total 716.5 / 716.5 1127.63 / 1127.63 241.2 / 241.2 Balance 716.5 / 716.5 1127.63 / 1127.63 241.2 / 241.2 Lab / Micro Data Result Diagrams: 02/18/22 05:25 02/19/22 05:08 Labs: Laboratory Results - last 24 hr 02/18/22 13:40: APTT 63.9 H 02/18/22 19:42: APTT 56.6 H 02/19/22 05:08: Sodium 137, Potassium 4.1, Chloride 106, Carbon Dioxide 25.0, Anion Gap 6, BUN 17, Creatinine 0.83, Estim Creat Clear Calc 87.95, Est GFR (MDRD) Af Amer 119, Est GFR (MDRD) Non-Af 98, BUN/Creatinine Ratio 20.6 H, Glucose 102, Calcium 9.0 02/19/22 05:08: APTT 70.5 H Cardiology Labs/Tests 02/18/22 13:40: APTT 63.9 H 02/18/22 19:42: APTT 56.6 H 02/19/22 05:08: Sodium 137, Potassium 4.1, Chloride 106, Carbon Dioxide 25.0, Anion Gap 6, BUN 17, Creatinine 0.83, Est GFR (MDRD) Af Amer 119, Est GFR (MDRD) Non-Af 98, BUN/Creatinine Ratio 20.6 H, Glucose 102, Calcium 9.0 02/19/22 05:08: APTT 70.5 H Rhythm: Sinus rhythm; brief episode appearing compatible with an ectopic atrial tachycardia Physical Exam Const alert, oriented x3, no apparent distress and healthy appearing Orientation / Consciousness: awake HEENT normocephalic, head/scalp atraumatic and hearing grossly normal bilaterally Eyes PERRL, EOMs intact bilaterally, conjunctivae normal and no scleral icterus Neck full ROM, supple and no JVD Carotids: normal carotid upstroke Resp normal respiratory effort and clear to auscultation bilaterally Cardio regular rate, regular rhythm, S1 normal heart sound and S2 normal heart sound Heart Sounds: murmur systolic II/ mid left sternal border and LVOT GI normal to inspection, nondistended, normoactive bowel sounds Extremity no pedal edema Extremity Narrative: Right radial artery area: Pulse 2+/4+: No bruit: No ecchymoses: No hematoma Skin no rashes or lesions noted Psych mental status grossly normal Assessment & Plan Assessment/Plan (1) Angina pectoris: PLAN: The patient has symptoms compatible with angina pectoris. He has been found to have an abnormal pharmacologic stress nuclear imaging study. The patient has undergone further evaluation with diagnostic cardiac catheterization. He was found to have angiographically significant appearing CAD especially involving the LAD, LCx, and RCA distributions. He is continuing medical therapy. He is pending transfer to [facility] for further evaluation for CABG. [facility] was contacted this day. Their response was that they were hopeful for transfer tomorrow. (2) Coronary artery calcification: PLAN: The patient has been previously noted on his other noninvasive studies to have concerns of coronary artery calcification. This does increase his risk of having atherosclerotic coronary artery disease. He has now been found to have an abnormal pharmacologic stress nuclear imaging study. He has undergone additional evaluation and care as noted. At the present time he will continue medical therapy. This does include IV heparin. He is pending transfer to [facility] for CABG. (3) CAD (coronary artery disease): PLAN: The patient has been diagnosed with atherosclerotic coronary disease as noted. This has included multivessel disease especially with respect to the LAD and RCA systems (as described in the cardiac catheterization report). At the present time he will continue to be monitored. He will continue medical therapy. This does include IV heparin. Again he is pending transfer to the [facility] for CABG. (4) Cardiac dysrhythmia: PLAN: The patient did have a brief episode appearing compatible with an ectopic atrial tachycardia. He has been placed on low-dose beta-bibiana therapy with consideration to his episodes of both bradycardia and tachycardia. He will continue to be monitored. (5) Cardiac murmur: PLAN: He did have a transthoracic echocardiogram performed. He does have an element of mild MR/TR. He also has mild diffuse thickening of the aortic valve with moderate focal aortic valve calcification. These findings may be contributing to his cardiac murmur. (6) Pure hypercholesterolemia: PLAN: The patient will continue risk factor evaluation/care as deemed appropriate. (7) Essential hypertension: PLAN: The patient's blood pressure will be followed. He will continue medical management. Addt'l Comments The patient's case was discussed and reviewed with the patient, his spouse, and other family members present. This note was generated using a voice recognition system and there may be incor rect words, spelling or punctuation that were not noted when reviewing the office note prior to saving. Procedure Criteria Type of Procedure Procedure Type: Elective Elective Risks - COVID COVID Risk Discussion: The surgeon/proceduralist and patient have discussed in detail the risk of exposure to and/or potential harm posed by the COVID-19 virus with having a surgery/procedure at this time versus the risk of delaying the surgery/procedure. It is not possible to know either the risk of delaying the surgery or procedure or chance of getting an infection with perfect accuracy, but a joint decision was made between the patient and the surgeon/proceduralist to proceed at this time with the scheduled surgery/procedure as indicated on the consent form.
[2022-02-19] MEDS: ALPRAZolam 0.25 MG Tablet PO ×2 (13:55→21:03)
[2022-02-19] MEDS: Atorvastatin Calcium 40 MG Tablet PO (21:03)
[2022-02-20] MEDS: HEPARIN/D5w 25,000 UNITS 25,000 UNITS/250 ML IV.SOLN. 12 UNITS CONT INF (00:05)
[2022-02-20 03:00] VITALS: PULSE 56
[2022-02-20 03:03] VITALS: BP 125/78; PULSE 53; RESP 16; TEMP 36.9; O2SAT 95
[2022-02-20 07:00] VITALS: PULSE 54
[2022-02-20 07:06] LABS: Anion Gap 6 (5-15); BUN 21 mg/dL (7-18); Calcium,Total 9.4 mg/dL (8.5-10.1); Chloride 106 mmol/L (98-107); Creatinine, Serum 0.81 mg/dL (0.70-1.30); EST Glomerular Filtration Rate 101 mL/min (>60); Est Glom Filt Rate - Afr Amer 122 mL/min (>60); Estimated Creatinine Clearance 90.12 ml/min; Glucose 104 mg/dL (74-106); Potassium 4.2 mmol/L (3.5-5.1); Sodium Level 137 mmol/L (136-145)
--- NOTE | 2022-02-20 07:40 | DS.PCM_ITS ---
Providers Date of Admission: 02/19/22 Date of Discharge: 02/20/22 Primary Care Physician: Dr. Luis Conroy MD Reason For Visit: FAILED STRESS TEST Diagnosis Discharge Diagnosis (1) Angina pectoris: Status: Acute Code(s): I20.9 - Angina pectoris, unspecified Plan: The patient has symptoms compatible with angina pectoris. He has been found to have an abnormal pharmacologic stress nuclear imaging study. The patient has undergone further evaluation with diagnostic cardiac catheteri zation. He was found to have angiographically significant appearing CAD especially involving the LAD, LCx, and RCA distributions. He is continuing medical therapy. He is pending transfer to [facility] today for further evaluation for CABG. (2) Coronary artery calcification: Status: Acute Code(s): I25.10 - Atherosclerotic heart disease of [place] coronary artery without angina pectoris; I25.84 - Coronary atherosclerosis due to calcified coronary lesion Plan: The patient has been previously noted on his other noninvasive studies to have concerns of coronary artery calcification. This does increase his risk of having atherosclerotic coronary artery disease. He has now been found to have an abnormal pharmacologic stress nuclear imaging study. He has undergone additional evaluation and care as noted. At the present time he will continue medical therapy. This does include IV heparin. He is pending transfer to [facility] today for further evaluation for CABG. (3) CAD (coronary artery disease): Status: Acute Code(s): I25.10 - Atherosclerotic heart disease of [place] coronary artery without angina pectoris Plan: The patient has been diagnosed with atherosclerotic coronary disease as noted. This has included multivessel disease especially with respect to the LAD and RCA systems (as described in the cardiac catheterization report). At the present time he will continue to be monitored. He will continue medical therapy. This does include IV heparin. Again he is pending transfer to the [facility] today for further evaluation for CABG. (4) Cardiac dysrhythmia: Status: Acute Code(s): I49.9 - Cardiac arrhythmia, unspecified Plan: The patient did have a brief episode appearing compatible with an ectopic atrial tachycardia. He has been placed on low-dose beta-bibiana therapy with consideration to his episodes of both bradycardia and tachycardia. He will continue to be monitored. (5) Cardiac murmur: Status: Acute Code(s): R01.1 - Cardiac murmur, unspecified Plan: He did have a transthoracic echocardiogram performed. He does have an element of mild MR/TR. He also has mild diffuse thickening of the aortic valve with moderate focal aortic valve calcification. These findings may be contributing to his cardiac murmur. (6) Pure hypercholesterolemia: Status: Acute Code(s): E78.00 - Pure hypercholesterolemia, unspecified Plan: The patient will continue risk factor evaluation/care as deemed appropriate. (7) Essential hypertension: Status: Acute Code(s): I10 - Essential (primary) hypertension Plan: The patient's blood pressure will be followed. He will continue medical management. Addt'l Comments The patient was placed on additional medical therapy which included: Aspirin 81 mg p.o. daily Metoprolol tartrate 12.5 mg p.o. twice daily IV heparin Medications at Discharge Home Medications atorvastatin 40 mg tablet 40 mg PO QHS 01/17/22 hydrochlorothiazide 12.5 mg tablet 12.5 mg PO DAILY 01/17/22 lisinopril 40 mg tablet 40 mg PO DAILY 01/17/22 sertraline 100 mg tablet 100 mg PO DAILY 01/17/22 aspirin 81 mg chewable tablet 81 mg PO DAILY PRN Pain 01/20/22 Hospital Course Operations None Procedures Cardiac catheterization Summary of Care Provided Minutes Spent on Discharge: 45 Hospital Course: The patient presented on 02-17-2022 for outpatient exercise tolerance test/imaging study. This study was deemed abnormal. A recommendation was made for the patient to remain in the hospital for further evaluation with diagnostic cardiac catheterization. The patient underwent diagnostic cardiac catheterization which demonstrated angiographically significant appearing multivessel CAD. A recommendation was made for the patient to remain in the hospital pending transfer to a tertiary care center for evaluation for CABG. The patient's case was discussed, reviewed, and accepted by the [facility]. The patient remained in the hospital pending transfer to [facility] and continue to be monitored and continued medical therapy with adjustment as deemed appropriate. On this day the patient is to be transferred to the [facility] for further evaluation for CABG. Physical Exam Const alert, oriented x3, no apparent distress and healthy appearing Orientation / Consciousness: awake HEENT normocephalic, head/scalp atraumatic and hearing grossly normal bilaterally Eyes PERRL, EOMs intact bilaterally, conjunctivae normal and no scleral icterus Neck full ROM, supple and no JVD Carotids: normal carotid upstroke Resp normal respiratory effort and clear to auscultation bilaterally Cardio regular rate, regular rhythm, S1 normal heart sound and S2 normal heart sound Heart Sounds: murmur systolic II/ mid left sternal border and LVOT GI normal to inspection, nondistended, normoactive bowel sounds Extremity no pedal edema Extremity Narrative: Right radial artery area: Pulse 2+/4+: No bruit: No ecchymoses: No hematoma Skin no rashes or lesions noted Psych mental status grossly normal Weight / BMI Weight Weight: 192 lb 10.944 oz Body Mass Index (BMI) 27.6 ABG / Lab / Microbiology Data Result Diagrams: 02/18/22 05:25 02/20/22 05:57 Laboratory: Laboratory Results - last 24 hr 02/20/22 05:57: APTT 59.0 H 02/20/22 05:57: Sodium 137, Potassium 4.2, Chloride 106, Carbon Dioxide 25.0, Anion Gap 6, BUN 21 H, Creatinine 0.81, Estim Creat Clear Calc 90.12, Est GFR (MDRD) Af Amer 122, Est GFR (MDRD) Non-Af 101, BUN/Creatinine Ratio 26.0 H, Glucose 104, Calcium 9.4 Microbiology: Microbiology 02/17/22 15:25 Nasal Secretion SARS-CoV-2 Antigen (Rapid) - Final D/C Instructions Discharge Diet: Low fat / Low cholesterol Additional Instructions: The patient is being transferred to [facility] for evaluation for CABG. Status post his [facility] evaluation and care he was asked to notify the office to arrange future outpatient cardiovascular follow-up and outpatient cardiac rehabilitation. Please Follow Up With: Johnnie Montez MD Meaningful Use Info Meaningful Use Diagnoses (Choose all that apply): None applicable Discharge Plan Admission Admit Date/Time: 02/19/22 12:12 Attending Provider: Johnnie Montez Primary Care Provider: Luis Conroy Discharge Orders/Prescriptions Prescriptions: Continued atorvastatin 40 mg tablet 40 mg PO QHS sertraline 100 mg tablet 100 mg PO DAILY lisinopril 40 mg tablet 40 mg PO DAILY hydrochlorothiazide 12.5 mg tablet 12.5 mg PO DAILY aspirin 81 mg tablet,chewable 81 mg PO DAILY PRN (Reason: Pain) Referrals / Follow Up: Luis Conroy MD [Primary Care Provider] - Johnnie Montez MD [Med Staff - Active Staff] - Disposition Disposition (needs filled in before D/C Order can be placed): [facility]
[2022-02-20 07:46] VITALS: O2SAT 95
[2022-02-20 08:57] VITALS: BP 116/81; PULSE 60; RESP 16; TEMP 36.9; O2SAT 96
[2022-02-20] MEDS: Sertraline 100 MG Tablet PO (08:57)
[2022-02-20] MEDS: Aspirin 81 MG TAB.CHEW PO (08:57)
[2022-02-20] MEDS: Lisinopril 40 MG Tablet PO (08:57)
[2022-02-20] MEDS: Metoprolol Tartrate 25 MG Tablet 12.5 MG PO (08:57)
[2022-02-20] MEDS: hydroCHLOROthiazide 12.5mg 12.5 MG PO (08:58)
[2022-02-20 11:50] VITALS: BP 111/67; PULSE 56; RESP 16; TEMP 36.8; O2SAT 98
== END 2022-02-20 11:49 | disposition short-term general hospital (02) | DRG 287 ==
LOC: PCU 11:26
PROVIDERS: Admitting Provider Internal Medicine Cardiovascular Disease; PCP Family Medicine; Referring Provider Internal Medicine Cardiovascular Disease; Visit Provider Internal Medicine Cardiovascular Disease
DX: I25.119 Atherosclerotic heart disease of native coronary artery with unspecified angina pectoris (principal); E78.00 Pure hypercholesterolemia, unspecified; I10 Essential (primary) hypertension; K21.9 Gastro-esophageal reflux disease without esophagitis; R01.1 Cardiac murmur, unspecified; R94.39 Abnormal result of other cardiovascular function study; Z79.899 Other long term (current) drug therapy; Z79.82 Long term (current) use of aspirin; R00.0 Tachycardia, unspecified
CPT/HCPCS: 36415; 71045; 78452; 80048; 85025; 85610; 85730; 87426; 93017; 93306; 93454; 97802; 99152; 99153; A9500; J7030; J7040; Q9967; A4216; C1769; C1894; J2785

== ENCOUNTER → 2022-03-09 | Outpatient (CLI) | payer MEDICARE, SELFPAY | END | disposition home or self-care (01) | LOC: PSN 13:42 | PROVIDERS: PCP Family Medicine; Visit Provider Internal Medicine Cardiovascular Disease | DX: I49.9 Cardiac arrhythmia, unspecified (principal); R00.0 Tachycardia, unspecified; Z95.1 Presence of aortocoronary bypass graft | CPT/HCPCS: 93225; 93226 ==

== ENCOUNTER → 2024-01-24 | Outpatient (CLI) | payer MEDICARE, SELFPAY ==
--- NOTE | 2024-01-24 14:02 | VDLE_ITS ---
Reason For Study: PAIN RIGHT GSV is normal. CFV is compressible, spontaneous, phasic, competent and demonstrates normal augmentation. FV is compressible, spontaneous, phasic, competent and demonstrates normal augmentation. POP V is compressible, spontaneous, phasic, competent and demonstrates normal augmentation. T/P Trunk is compressible. PTV is compressible. RT PerV is compressible. NON-VASCULAR structure noted RT lateral ankle (area of pain) measuring 0.21 cm x 1.09 cm. Procedure This is a venous duplex using B-mode, color flow and spectral Doppler. Exam performed in department. A preliminary report was called and/or faxed to Sabiha MARCANOC @ [phone] @ 14:25. Images #14 & #15 are of the RIGHT lateral ankle. VL/Venous Duplex US, Unilateral Interpretation Summary Deep veins of the right lower extremity are patent and compressible segmentally . There is no evidence of right lower extremity deep vein thrombosis. Valvular competence juan alberto ears intact within the proximal deep venous system on the right . The right great saphenous vein a ppears patent and compressible segmentally. A non-vascular, hypoechoic structure is noted near th e right lateral ankle, measuring 0.21 cm x 1.09 cm. This may represent a hematoma or seroma. Cl inical correlation is advised. Ordering Physician: Sabiha Johnson Referring Physician: Sabiha Johnson Performed By: Jocelyn Hugo, RDKEVIN, RVT
--- NOTE | 2024-01-24 14:33 | BD_ITS ---
STUDY: DUAL ENERGY X-RAY ABSORPTIOMETRY / DXA REASON FOR EXAM: Male, 69 years old. M810 TECHNIQUE: Bone Mineral Density (BMD) measurements of lumbar spine and bilateral hips were obtained. COMPARISON: None. FINDINGS: Lumbar Spine (L1-L4): g/cm2 (0.886) / T-score (-1.9) / Z-score (-1.0) Findings are suggestive of osteopenia with a moderate fracture risk. Left Femur Total: g/cm2 (0.919) / T-score (-0.8) / Z-score (0.1) Left Femoral Neck: g/cm2 (0.668) / T-score (-1.9) / Z-score (-0.7) Right Femur Total: g/cm2 (0.839) / T-score (-1.3) / Z-score (-0.6) Right Femoral Neck: g/cm2 (0.657) / T-score (-2.0) / Z-score (-0.8) BD/Dexa Bone Density Study IMPRESSION: The patient is considered osteopenic as outlined below according to World Roc Organization (WHO) criteria with a moderate fracture risk. Reference Information: The T-score is the number of standard deviations above or below the standard which is normal for young adults at their peak bone mineral density. The World Health Organization (WHO) interprets the T-scores as follows: Above -1 Normal bone density Between -1 and -2.5 Osteopenia Equal to / or below -2.5 Osteoporosis As a practical clinical guideline, osteopenia may be graded as follows: Mild -1 through -1.5 Moderate -1.6 through -2.0 Severe -2.1 through -2.4 The Z-score is the number of standard deviations above or below age-matched controls. A Z-score of less than -1.5 would be considered abnormal. References: 1. NIH Osteoporosis and Related Bone Diseases www osteo.org 2. International Society for Clinical Densitometry www iscd.org 3. National Osteoporosis Foundation www nof.org Electronically Signed: Indio Orozco MD at 9:24 EDT ,
== END | disposition home or self-care (01) ==
LOC: CVS 14:00
PROVIDERS: PCP Nurse Practitioner Family; Referring Provider Nurse Practitioner Family; Visit Provider Nurse Practitioner Family
DX: Z13.820 Encounter for screening for osteoporosis (principal); I48.21 Permanent atrial fibrillation; M79.661 Pain in right lower leg; D68.69 Other thrombophilia; M79.604 Pain in right leg; M81.0 Age-related osteoporosis without current pathological fracture
CPT/HCPCS: 77080; 93971

== ENCOUNTER → 2024-10-07 | Outpatient (CLI) | payer MEDICARE, SELFPAY ==
--- NOTE | 2024-10-07 13:41 | ECHOCS_ITS ---
Reason For Study Reason For Study: Murmur Procedure This was a 2D Doppler, Color Flow transthoracic echocardiogram. The study was technically difficult. Contrast injection was performed. Exam performed in department. Left Ventricle Normal LV size. Mild concentric left ventricular hypertrophy. The left ventricular ejection fraction is 55 %. No regional wall motion abnormalities noted. Right Ventricle Normal RV size. Normal systolic function. Mitral Valve Normal mitral valve. Tricuspid Valve Normal tricuspid valve. Mild (1+) tricuspid valve insufficiency. Pulmonary artery systolic pressure is 36 mmHg. Aortic Valve Trisinus/trileaflet aortic valve. Mild focal aortic valve calcification. Pulmonic Valve Normal pulmonic valve. Great Vessels Normal aortic root. The pulmonary artery is normal size. Inferior vena cava collapse with respiration. Pericardium/Pleural No pericardial effusion. Medication 22 gauge I.V. with prn adaptor inserted into left arm. Diluted definity 2ml given slow IV push to enhance endocardial definition. MMode/2D Measurements & Calculations LVIDd: 4.9 cm IVSd: 1.4 cm LVOT diam: 2.3 cm LVIDs: 3.1 cm LVPWd: 1.3 cm LVOT area: 4.0 cm2 RVDd: 4.3 cm FS: 36.4 % Ao root diam: 3.9 cm LAV(MOD-bp): 59.5 ml LVAd ap4: 36.1 cm2 LAV(MOD-bp) Indexed: 29.1 ml/m2 LVLd ap4: 8.4 cm LAV(MOD-sp2): 58.3 ml EDV(MOD-sp4): 125.5 ml LAV(MOD-sp4): 57.7 ml EDV(sp4-el): 131.4 ml LVAs ap4: 20.2 cm2 LVLs ap4: 6.0 cm ESV(MOD-sp4): 54.8 ml ESV(sp4-el): 57.1 ml EF(MOD-sp4): 56.4 % EF(sp4-el): 56.5 % SV(MOD-sp4): 70.8 ml SV(sp4-el): 74.2 ml Ao sinus diam: 4.1 cm SI(MOD-sp4): 34.6 ml/m2 Ao ST Junction: 3.0 cm LA A4 area: 19.7 cm2 LA dimension(2D): 4.4 cm RA A4 area: 11.1 cm2 Time Measurements MV dec time: 0.23 sec Doppler Measurements & Calculations MV E max jean-pierre: 97.4 cm/sec Lat Peak E' Jean-Pierre: 10.5 cm/sec Med Peak E' Jean-Pierre: 7.9 cm/sec MV A max jean-pierre: 76.2 cm/sec E/E' lat: 9.2 E/E' med: 12.4 MV E/A: 1.3 MV V2 max: 116.3 cm/sec MV P1/2t max jean-pierre: 114.7 cm/sec Ao V2 max: 208.4 cm/sec MV max P.4 mmHg MV P1/2t: 89.8 msec Ao max P.4 mmHg MV V2 mean: 65.6 cm/sec MV dec slope: 374.1 cm/sec2 Ao V2 mean: 139.5 cm/sec MV mean P.0 mmHg Ao mean P.9 mmHg MV V2 VTI: 38.9 cm MVA(P1/2t): 2.4 cm2 Ao V2 VTI: 35.9 cm MVA(VTI): 3.8 cm2 AV (velocity ratio): 1.0 DAYDAY(I,D): 4.1 cm2 DAYDAY(V,D): 3.6 cm2 LV V1 max: 186.4 cm/sec MR max jean-pierre: 487.5 cm/sec SV(LVOT): 146.6 ml LV V1 max P.9 mmHg MR max P.0 mmHg LV V1 mean P.4 mmHg LV V1 mean: 114.8 cm/sec LV V1 VTI: 36.5 cm PA V2 max: 105.5 cm/sec TR max jean-pierre: 282.4 cm/sec TR max P.9 mmHg ECHO/Echo Complete W/ Contrast Interpretation Summary Normal LV size. The left ventricular ejection fraction is 55 %. Mild concentric left ventricular hypertrophy. No regional wall motion abnormalities noted. Ordering Physician: Jennifer Thornton Referring Physician: Jennifer Thornton Performed By: Salvador Carey RCS
== END | disposition home or self-care (01) ==
PROVIDERS: PCP Nurse Practitioner Family; Referring Provider Physician Assistant Medical; Visit Provider Physician Assistant Medical
DX: R01.1 Cardiac murmur, unspecified (principal)
CPT/HCPCS: 93306; Q9957; A4216; C8929

== ENCOUNTER → 2025-01-22 | Outpatient (CLI) | payer MEDICARE, SELFPAY ==
--- NOTE | 2025-01-22 12:57 | VDLE_ITS ---
Reason For Study Reason For Study: Swelling RIGHT LEFT GSV is normal. CFV is compressible, spontaneous, phasic, competent, CFV is compressible, spontaneous, phasic, competent and demonstrates normal augmentation. and demonstrates normal augmentation. FV is compressible, spontaneous, phasic, competent and demonstrates normal augmentation. POP V is compressible, spontaneous, phasic, competent and demonstrates normal augmentation. T/P Trunk is compressible. PTV is compressible. RT PerV is compressible. Procedure This is a venous duplex using B-mode, color flow and spectral Doppler. Exam performed in department. A preliminary report was called and/or faxed to Noel Driver MD. VL/Venous Duplex US, Unilateral Interpretation Summary Deep veins of the right lower extremity are patent and compressible segmentally . There is no evidence of right lower extremity deep vein thrombosis. The right great saphenous vein appears patent a nd compressible segmentally. Ordering Physician: Noel Driver Referring Physician: Sabiha Johnson NP Performed By: Jackie Perry RVT
== END | disposition home or self-care (01) ==
LOC: CVS 12:51
PROVIDERS: PCP Nurse Practitioner Family; Referring Provider Specialist; Visit Provider Specialist
DX: R22.41 Localized swelling, mass and lump, right lower limb (principal)
CPT/HCPCS: 93971

== ENCOUNTER → 2025-01-30 | Outpatient (CLI) | payer MEDICARE, SELFPAY ==
--- NOTE | 2025-01-30 10:06 | VDLE_ITS ---
Reason For Study Reason For Study: Right leg pain RIGHT LEFT GSV is normal. CFV is compressible, spontaneous, phasic, competent, CFV is compressible, spontaneous, phasic, competent and demonstrates normal augmentation. and demonstrates normal augmentation. FV is compressible, spontaneous, phasic, competent and demonstrates normal augmentation. POP V is compressible, spontaneous, phasic, competent and demonstrates normal augmentation. T/P Trunk is compressible. PTV is compressible. RT PerV is compressible. Procedure This is a venous duplex using B-mode, color flow and spectral Doppler. Exam performed in department. A preliminary report was called and/or faxed to Dr. Driver. VL/Venous Duplex US, Unilateral Interpretation Summary Deep veins of the right lower extremity are patent and compressible segmentally . There is no evidence of right lower extremity deep vein thrombosis. Valvular competence appears intact within the p roximal deep venous system on the right . The right great saphenous vein appears patent and compressible segmentally. The left common femoral vein is patent and compressible . Ordering Physician: Noel Driver Referring Physician: Sabiha Johnson Performed By: Mercedes Nascimento RVT
== END | disposition home or self-care (01) ==
LOC: CVS 10:05
PROVIDERS: PCP Nurse Practitioner Family; Referring Provider Specialist; Visit Provider Specialist
DX: M79.604 Pain in right leg (principal)
CPT/HCPCS: 93971

== ENCOUNTER → 2025-03-20 | Outpatient (CLI) | payer MEDICARE, SELFPAY ==
--- OUTSIDE RECORDS SUMMARY | 2025-03-20 10:30 | XMS RPT_ITS | CCD ---
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 Gabriela Conroy Primary Care Provider Jennifer Ma Attending Provider Unavailable Dr. Gabriela Conroy Referring Provider Dr. Johnnie Montez Attending Provider [phone] Dr. Johnnie Montez Referring Provider [phone] Dr. Johnnie Montez Other Provider [phone] Johnnie Montez Admit Provider Unavailable Primary Care Provider Dr. Gabriela Dupree Primary Care Provider Jennifer Ma Attending Provider Unavailable Dr. Gabriela Conroy Referring Provider [phone] Dr. Johnnie Montez Attending Provider Dr. Johnnie Montez Referring Provider Dr. Johnnie Montez Other Provider Dr. Johnnie Montez Admit Provider Angelia Ramon Attending Provider Unavailable Unavailable Primary Care Provider Dr. Gabriela Dupree Primary Care Unavaila ble [place], Dr. Johnnie Ye Attending Abigail vailable Dr. Johnnie Montez Referring Abigail vailable [place], Dr. Gabriela Petersen Primary Care Unavaila ble [place], Dr. Johnnie Ye Attending Abigail vailable [place], Dr. Johnnie Ye Referring Abigail vailable [place], Dr. Gabriela Petersen Primary Care Unavaila ble [place], Dr. Johnnie Ye Attending Abigail vailable [place], Dr. Johnnie Ye Referring Abigail vailable [place], Dr. Gabriela Petersen Primary Care Unavaila ble [place], Dr. Johnnie Ye Attending Abigail vailable [place], Dr. Johnnie Ye Referring Abigail vailable [place], Dr. Gabriela Petersen Primary Care Unavaila ble [place], Dr. Johnnie Ye Attending Abigail vailable [place], Dr. Johnnie Ye Referring Abigail vailable [place], Dr. Gabriela Petersen Primary Care Unavaila ble [place], Dr. Johnnie Ye Attending Abigail vailable [place], Dr. Johnnie Ye Referring Abigail vailable [place], Dr. Gabriela Petersen Primary Care Unavaila ble [place], Dr. Johnnie Ye Referring Abigail vailable [place], Dr. Johnnie Ye Attending Abigail vailable [place], Dr. Gabriela Petersen Primary Care Unavaila ble [place], Dr. Johnnie Ye Referring Abigail vailable [place], Dr. Johnnie Ye Attending Abigail vailable [place], Dr. Johnnie Ye Attending Abigail vailable [place], Dr. Gabriela Petersen Primary Care Unavaila ble [place], Dr. Johnnie Ye Referring Abigail vailable [place], Dr. Gabriela Petersen Attending Unavaila ble [place], Dr. Gabriela Petersen Primary Care Unavaila ble [place], Dr. Johnnie Ye Attending Abigail vailable [place], Dr. Gabriela Petersen Primary Care Unavaila ble [place], Dr. Johnnie Ye Referring Abigail vailable [place], Dr. Johnnie Ye Attending Abigail vailable [place], Dr. Gabriela Petersen Primary Care Unavaila ble [place], Dr. Johnnie Ye Referring Abigail vailable [place], Dr. Johnnie Ye Attending Abigail vailable [place], Dr. Gabriela Petersen Primary Care Unavaila ble [place], Dr. Johnnie Ye Referring Abigail vailable [place], Dr. Johnnie Ye Attending Abigail vailable [place], Dr. Gabriela Petersen Primary Care Unavaila ble [place], Dr. Johnnie Ye Referring Abigail vailable [place], Dr. Johnnie Ye Referring Abigail vailable [place], Dr. Gabriela Petersen Primary Care Unavaila ble [place], Dr. Johnnie Ye Attending Abigail MEME Simmons Primary Care Unavailable GABRIELA CONROY Referring Unavailable TREASURE MATUTEAH Shakira Referring Unavailable RINA JOHNSON Primary Care Unavailable Gabriela Conroy MD Unavailable Alex DELGADILLO, Rina Willis Primary Care Provider FAROOQ ASHTON Attending Unavailabl e SELF Referring Unavailable RINA JOHNSON Primary Care Unavailable Alex PHARMACEUTICAL PLANT OPERATOR-C, Rina Primary Care Provider Alex PHARMACEUTICAL PLANT OPERATOR-C, Rina Referring Provider [phone] Jennifer Juárez Attending Provider Jennifer Juárez Referring Provider [phone] Jessica MARIE, Dr. Palm Attending Provider [phone] MARYCARMEN MARIE, DR GABRIELA Chung Primary Care Physician Un available Albino PT, Naomy Unavailable Unavailable ROXANNA MARIE, DR SAMREEN Flores Attending Unavailab Rakan MARIE, DR GABRIELA Chung Primary Care Unavailab xavi CONROY MD, DR GABRIELA Chung Primary Care Unavailab xavi MCKNIGHT MD, DR SAMREEN Flores Attending Unavailab Ciera MARIE, DR SAMREEN Flores Attending Unavailab Ciera MARIE, DR SAMREEN Flores Referring Unavailab xavi CONROY MD, DR GABRIELA Chung Primary Care Unavailab xavi CONROY MD, DR GABRIELA Chung Consulting Unavailab Ciera MARIE, DR SAMREEN Flores Admitting Unavailab xavi AMOR RUG MEASURER-DEBURRER STRIP, MIRA L Consulting JALYEN Rosales PAC Attending UnavailGABRIELA Villavicencio Consulting Unavailable JACOBAUJAYLEN Avalos PAC Admitting Unavailabl e ESHENAUJAYLEN Avalos PAC Primary Care Unavailabl e PROVIDER, UNKNOWN Consulting Unavailable RINA JOHNSON Primary Care Unavailable RINA JOHNSON Attending Unavailable ALEX, RINA Admitting Unavailable GABRIELA CONROY Consulting Unavailable PROVIDER, UNKNOWN Consulting Unavailable RINA JOHNSON Primary Care Unavailable RINA JOHNSON Attending Unavailable ALEX, RINA Admitting Unavailable GABRIELA CONROY Consulting Unavailable PROVIDER, UNKNOWN Consulting Unavailable ALEX, RINA Admitting Unavailable ALEX, RINA Primary Care Unavailable RINA JOHNSON Attending Unavailable GABRIELA CONROY Consulting Unavailable PROVIDER, UNKNOWN Consulting Unavailable Alex PHARMACEUTICAL PLANT OPERATOR-C, Rina Primary Care Physician Jennifer Juárez Attending Physician Jessica MARIE, Dr. Palm Attending Physician Roxanna MARIE, Dr. Cohen Attending Physician Roxanna MARIE, Dr. Cohen Referring Provider [phone] Arvind MARIE, Dr. Sanchez Attending Physician Samreen Mcknight Referring Unavailable Daniel Samuels Attending Unavailable Alex PHARMACEUTICAL PLANT OPERATOR, Rina Primary Care Unavailable Néstor Lopez Attending Unavailable Alex PHARMACEUTICAL PLANT OPERATOR, Rina Primary Care Unavailable Alex PHARMACEUTICAL PLANT OPERATOR, Rina Primary Care Unavailable Nikki Alfaro NP Attending Unavailable Gabriela Conroy Referring Unavailable Samreen Mcknight Referring Unavailable Alex PHARMACEUTICAL PLANT OPERATOR, Rina Primary Care Unavailable Samreen Mcknight Attending Unavailable Jennifer Juárez Attending Unavail able Jennifer Juárez Referring Unavail able Alex PHARMACEUTICAL PLANT OPERATOR, Rina Primary Care Unavailable Samreen Mcknight Referring Unavailable Alex PHARMACEUTICAL PLANT OPERATOR, Rina Primary Care Unavailable Samreen Mcknight Attending Unavailable Jennifer Juárez Attending Unavail able Alex PHARMACEUTICAL PLANT OPERATOR, Rina Primary Care Unavailable Alex PHARMACEUTICAL PLANT OPERATOR, Rina Referring Unavailable Alex PHARMACEUTICAL PLANT OPERATOR-C, Rina Primary Care Physician [phone] Allergies Allergy Classification Reported Allergen(s) Allergy Type Date of Onset Reaction(s) Facility (20 sources) Codeine; Translations: [CODEINE] Drug Allergy 8 Intolerance [facility] (20 sources) Sulfonamides (Antibiotic); Translations: [SULFA (SULFONAMIDE ANTIBIOTICS)] Propensity to adverse reactions to drug 9 Itching [facility] (1 source) Sulfonamides (Antibiotic) Other [facility] (1 source) ALLERGIES NOT ON FILE; Translations: [ALLERGIES NOT ON FILE] Propensity to adverse reactions (disorder) [facility] 2 Repository (3 sources) Sulfamethoxazole ; Translations: [sulfamethoxazol e] Drug Allergy VOMITING, NAUSEA [facility] (1 source) Codeine Drug Allergy [facility] Repository (1 source) Codeine Drug Allergy [facility] Repository Medications Current Medications Medication Drug Class(es) Dates Sig (Normalized) Sig (Original) acetaminophen 500 mg oral capsule (9 sources) Start: 12-24-2024 End: 01-07-2025 take 1 capsule by mouth once daily acetaminophen 500 mg oral capsule Dose : 1,000 mg = 2 cap(s), Oral, TID, PRN as needed for pain, not to exceed 3000 mg/day, # 120 cap(s), 0 Refill(s), 01/07/25 7:34:00 AM EDT, Pharmacy: [facility], 175.2, cm, 12/23/24 9:58:00 EDT, Height, kg, 12/23/24 9:58:00 EDT, Dosing Weight Start Date: 12/24/24 Stop Date: 01/07/25 Status: Ordered Medication Dispense Status: Completed Quantity: 120.0 Unit: cap(s) Total Allowed Fills: 1 Fills Dispensed: 0 Start: 02-28-2022 take 2 tablets by mo ut every four hours as needed Start: 02-28-2022 take 650 mg by mouth every four hours Acetaminophen Active 650 MG PO Q4H February 28, 2022 12:00am take 1 tablet by norma every six hours as needed for pain acetaminophen (TYLENOL) 500 MG tablet Take 500 mg by mouth every 6 (six) hours as needed for pain . 0 Active Comment on above: Take 2 tablets by mo uth every 4 hours as needed (mild to moderate pain). Ascorbic Acid (3 sources) Vitamin C Start: 08-28-2024 Start: 08-28-2024 vitamin C Acti ve PO DAILY August 28, 2024 12:00am Unknow dose cholecalciferol 0.025 mg oral capsule (3 sources) Vitamin D Start: 08-28-2024 take 1 capsule by mouth once daily SENOKOT-S (1 source) Start: 12-24-2024 Senokot S Dose = 2 tab(s), Oral, BID, Take until first bowel movement, then as needed, 0 Refill(s) Start Date: 12/24/24 Status: Ordered Medication Dispense Status: Completed Total Allowed Fills: 1 Fills Dispensed: 0 famotidine 20 mg oral tablet (1 source) Histamine-2 Receptor Antagonist Start: 12-24-2024 Pepcid 20 mg oral tablet Dose : 20 mg = 1 tab(s), Oral, qDay, # 30 tab(s), 0 Refill(s), Pharmacy: [facility], 175.2, cm, 12/23/24 9:58:00 EDT, Height, kg, 12/23/24 9:58:00 EDT, Dosing Weight Start Date: 12/24/24 Status: Ordered Medication Dispense Status: Completed Quantity: 30.0 Unit: tab(s) Total Allowed Fills: 1 Fills Dispensed: 0 ferrous sulfate 325 mg oral tablet (7 sources) Start: 02-28-2022 take 1 tablet by mouth twice daily at mealtime ferrous sulfate 325 mg (65 mg iron) tablet Take 1 tablet by mouth twice daily with meals. 60 tablet 02/28/2022 Active Start: 02-28-2022 End: 06-19-2022 take 1 tablet by mouth twice daily Ferrous Sulfate 325 mg (65 mg iron) tablet Discontinued 325 mg PO TWICE A DAY February 28, 2022 1:00am June 19, 2022 2:16pm Comment on above: Take 1 tablet by norma th twice daily with meals. furosemide 20 mg oral tablet (3 sources) Loop Diuretic Start: 02-29-20 furosemide (LASIX) 20 mg tablet Take 2 tabs once daily for 7 days. Then take 1 tab once daily for 7 days. Then stop 21 tablet 02/28/2022 Active Comment on above: Take 2 tabs once melva ly for 7 days. Then take 1 tab once daily for 7 days. Then stop magnesium oxide 250 mg oral tablet (2 sources) Start: 05-23-19 20 Magnesium 250 mg tablet Dose : 250 mg = 1 tab(s), Oral, qDay, 0 Refill(s) Start Date: 05/23/19 Status: Ordered Medication Dispense Status: Completed Total Allowed Fills: 1 Fills Dispensed: 0 meloxicam 15 mg oral tablet (1 source) Nonsteroidal Anti-inflammatory Drug take 1 tablet by mouth once daily meloxicam 15 mg oral tablet ; 1 tab(s) orally once a day Quantity: 0 Refills: 0 Ordered: 31-Jan-2021 Evelyn Benites Status: Other Generic Substitution Allowed oxyCODONE hydrochloride 5 mg oral tablet (7 sources) Opioid Agonist Start: 12-25-19 End: 01-01-20 take 1-2 tablets by mouth every four hours as needed for pain oxyCODONE 5 mg oral tablet ( IMMEDIATE release ) See Instructions, PRN as needed for pain, 1-2 tab(s) Oral q4h, # 42 tab(s), 0 Refill(s), 12/31/24 7:33:00 AM EDT, Pharmacy: [facility], Status post total right knee replacement, 175.2, cm, 12/23/24 9:58:00 EDT, Height, 83.6, kg, 12/23/24 9:58:00 EDT, Dosing Weight Start Date: 12/24/24 Stop Date: 12/31/24 Status: Ordered Medication Dispense Status: Completed Quantity: 42.0 Unit: tab(s) Total Allowed Fills: 1 Fills Dispensed: 0 Indications: Presence of right artificial knee joint; Start: 02-28-2022 End: 03-07-2022 take 1 tablet by mouth every twelve hours as needed for pain oxyCODONE IR (ROXICODONE) 5 mg immediate release tablet Indications: Post-op pain Take 1 tablet by mouth every 12 hours as needed (moderate to severe pain) for up to 7 days. 14 tablet 0 02/28/2022 03/07/2022 Active Start: 02-28-2022 End: 03-15-2022 take 1 tablet by mouth twice daily as needed Oxycodone 5 mg tablet Discontinued 5 mg PO TWICE A DAY as needed 0 February 28, 2022 1:00am March 15, 2022 11:34am take 1 tablet by norma th every six hours as needed oxyCODONE 5 mg oral tablet ; 1 tab(s) orally every 6 hours, As Needed Quantity: 0 Refills: 0 Ordered: 31-Jan-2021 Evelyn Benites Generic Substitution Allowed Comment on above: Take 1 tablet by norma th every 12 hours as needed (moderate to severe pain) for up to 7 days. potassium chloride 10 meq extended release oral tablet (3 sources) Start: 02-28-2022 potassium chloride (K-TAB) 10 mEq tablet Take 2 tabs once daily for 7 days. Then take 1 tab once daily for 7 days. Then stop 21 tablet 02/28/2022 Active Comment on above: Take 2 tabs once melva ly for 7 days. Then take 1 tab once daily for 7 days. Then stop Turmeric extract (4 sources) Start: 08-28-2024 Start: 08-28-2024 take 1 capsule by [facility] once daily Turmeric 500 mg oral capsule ; 1 cap(s) orally once a day Quantity: 0 Refills: 0 Ordered: 31-Jan-2021 Evelyn Benites Generic Substitution Allowed turmeric root extract 500 mg cap (1 source) turmeric root ex tract 500 mg cap Take by mouth. Active ubidecarenone 100 mg oral capsule (3 sources) Start: 08-28-2024 take 2 capsules by mouth once daily Vitamin B Complex oral capsule (3 sources) Start: 05-23-2019 take 1 capsule by mouth once daily Vitamin B Complex oral capsule Dose = 1 cap(s), Oral, Daily, # 90 cap(s), 0 Refill(s) Start Date: 05/23/19 Status: Ordered Medication Dispense Status: Completed Quantity: 90.0 Unit: cap(s) Total Allowed Fills: 1 Fills Dispensed: 0 Vitamin D3 (3 sources) Start: 12-11-2024 Vitamin D3 Dose : 25 mcg = 1 tab(s), Oral, Daily, 0 Refill(s) Start Date: 12/11/24 Status: Ordered Medication Dispense Status: Completed Total Allowed Fills: 1 Fills Dispensed: 0 Completed/Discontinued Medications Medication Drug Class(es) Dates Sig (Normalized) Sig (Original) apixaban 5 mg oral tablet (20 sources) Factor Xa Inhibitor Start: 12-24-2024 Eliquis 5 mg oral tablet Dose : 5 mg = 1 tab(s), Oral, BID, take Eliquis 5 mg twice daily for 12 days postoperatively. After 12 days you can then go back to your normal daily 5 mg Eliquis as prescribed by cardiology, 0 Refill(s), 83.6 Start Date: 12/24/24 Status: Ordered Medication Dispense Status: Completed Total Allowed Fills: 1 Fills Dispensed: 0 Start: 12-11-2024 Eliquis 5 mg o ral tablet Dose : 5 mg = 1 tab(s), Oral, Daily, 0 Refill(s), 90.9 Start Date: 12/11/24 Status: Ordered Medication Dispense Status: Completed Total Allowed Fills: 1 Fills Dispensed: 0 Start: 05-14-2024 take 1 tablet by norma th every twelve hours ELIQUIS 5 mg tab(s) Take 1 tablet by mouth every 12 hours. 05/14/2024 Active Start: 03-13-2022 End: 04-09-2024 take 1 tablet by mouth twice daily Apixaban (Eliquis) 5 mg tablet Discontinued 0 .ROUTE .COMPLEX 60 March 29, 2023 12:33pm May 25, 2023 1:57pm TAKE ONE TABLET BY MOUTH TWO TIMES A DAY aspirin 81 mg chewable tablet (20 sources) Platelet Aggregation Inhibitor, Nonsteroidal Anti-inflammatory Drug Start: 01-17-2022 End: 05-25-2023 take 1 tablet by mouth once daily Aspirin 81 mg tablet,chewable Discontinued 81 mg PO DAILY March 15, 2022 11:30am May 25, 2023 1:50pm Pain aspirin 81 mg ch ewable tablet Chew and Swallow 81 mg every other day. 0 Active Comment on above: Take 81 mg by mouth once daily. atorvastatin 40 mg oral tablet (20 sources) HMG-CoA Reductase Inhibitor Start: 06-15-2020 End: 01-17-2022 Atorvastatin Discontinued MG PO June 15, 2020 12:00am January 17, 2022 1:25pm Start: 05-08-2017 End: 05-25-2023 take 1 tablet by mouth at bedtime Atorvastatin 40 mg tablet Discontinued 40 mg PO AT BEDTIME January 17, 2022 2:24pm May 25, 2023 1:59pm Comment on above: Take 40 mg by mouth once daily. bisacodyl 5 mg delayed release oral tablet (7 sources) Stimulant Laxative Start: 2021 End: 2021 take 1 tablet by mouth once daily as needed Bisacodyl 5 mg tablet Discontinued 5 mg PO DAILY as needed February 28, 2022 1:00am March 15, 2022 11:35am Comment on above: Take 1 tablet by norma th once daily as needed for constipation. docusate sodium 100 mg oral capsule (7 sources) Start: 2021 End: 2021 take 1 capsule by mouth twice daily Docusate Sodium (Colace) 100 mg capsule Discontinued 100 mg PO TWICE A DAY February 28, 2022 1:00am March 31, 2022 4:43pm Comment on above: Take 1 capsule by mo uth twice daily. hydroCHLOROthiazide 25 mg oral tablet (20 sources) Thiazide Diuretic Start: 2021 End: 2023 take 1 tablet by mouth once daily Hydrochlorothiazide 25 mg tablet Discontinued 25 mg PO DAILY 90 March 26, 2023 9:12am May 25, 2023 1:59pm Start: 11-18-2021 End: 02-28-2022 take 1 tablet by mouth once daily Hydrochlorothiazide 12.5 mg tablet Discontinued 12.5 mg PO DAILY January 17, 2022 12:00am February 28, 2022 5:54pm Comment on above: Take 12.5 mg by mout h once daily. lisinopril 40 mg oral tablet (20 sources) Angiotensin Converting Enzyme Inhibitor Start: End: take 1 tablet by mouth once daily Lisinopril 40 mg tablet Discontinued 40 mg PO DAILY March 15, 2022 1:00am March 15, 2022 11:36am Start: 06-15-2020 End: 01-17-2022 Lisinopril Discontinued MG P O June 15, 2020 12:00am January 17, 2022 1:25pm Start: 04-26-2017 End: 02-28-2022 take 1 tablet by mouth once daily Lisinopril 40 mg tablet Discontinued 40 mg PO DAILY January 17, 2022 2:24pm February 28, 2022 5:54pm Comment on above: Take 40 mg by mouth once daily. Metoprolol (20 sources) beta-Adrenergic Bibiana Start: 12-24-2024 End: 12-24-2024 take 1 tablet by mouth in the morning Toprol-XL Start: 12/24/24 8:00:00 AM EDT, Dose = 25 mg, = 1 tab(s), Oral, give with food/meal, 12/23/24 11:31:00 EDT Start Date: 12/24/24 Stop Date: 12/24/24 Status: Completed Medication Dispense Status: Completed Total Allowed Fills: 1 Fills Dispensed: 0 Start: 12-23-2024 End: 12-23-2024 take 1 tablet by mouth in the evening Toprol-XL Start: 12/23/24 5:00:00 PM EDT, Dose = 25 mg, = 1 tab(s), Oral, give with food/meal, 12/23/24 11:31:00 EDT Start Date: 12/23/24 Stop Date: 12/23/24 Status: Completed Medication Dispense Status: Completed Total Allowed Fills: 1 Fills Dispensed: 0 Start: 12-11-2024 Metoprolol Suc cinate ER 25 mg oral TABLET extended release Dose : 25 mg = 1 tab(s), Oral, BID, # 30 tab(s), 0 Refill(s) Start Date: 12/11/24 Status: Ordered Medication Dispense Status: Completed Quantity: 30.0 Unit: tab(s) Total Allowed Fills: 1 Fills Dispensed: 0 Start: 08-28-2024 take 1 tablet by norma th twice daily Start: 02-28-2024 End: 08-28-2024 take 2 tablets by mouth twice daily Metoprolol Succinate 50 mg tablet extended release 24 hr Discontinued 25 mg PO TWICE A DAY 45 3 February 28, 2024 2:01pm August 28, 2024 2:26pm Start: 03-15-2022 End: 02-28-2024 take 1 tablet by mouth twice daily Metoprolol Succinate 50 mg tablet extended release 24 hr Discontinued 50 mg PO TWICE A DAY 180 May 25, 2023 1:58pm February 28, 2024 2:13pm Start: 02-28-2022 End: 03-15-2022 take 1 tablet by mouth once daily Metoprolol Succinate 100 mg tablet extended release 24 hr Discontinued 100 mg PO DAILY February 28, 2022 1:00am March 15, 2022 11:33am Comment on above: Take 1 tablet by norma th once daily. pantoprazole 20 mg delayed release oral tablet (7 sources) Proton Pump Inhibitor Start: End: take 1 tablet by mouth once daily Pantoprazole 20 mg tablet,delayed release (DR/EC) Discontinued 20 mg PO DAILY February 28, 2022 1:00am March 15, 2022 11:35am Comment on above: Take 1 tablet by norma th DAILY (6 AM) for 14 days. sertraline 100 mg oral tablet (20 sources) Serotonin Reuptake Inhibitor Start: 1 End: 2 Sertraline Discontinued MG PO June 15, 2020 12:00am January 17, 2022 1:25pm Start: 05-08-2017 End: 01-17-2022 Sertraline 100 mg tablet Dis continued mg PO June 15, 2020 1:00am January 17, 2022 2:25pm Comment on above: Take 100 mg by mouth once daily. 1 ml triamcinolone acetonide 40 mg/ml injection (2 sources) Corticosteroid Start: 09-30-2018 End: 09-30-2018 triamcinolone acetonide (KENALOG-40) injection 20 mg Start: 09-30-2018 End: 09-30-2018 triamcinolone acetonide (TAVIA ALOG-40) injection 20 mg tropicamide 10 mg/ml ophthalmic solution (2 sources) Anticholinergic Start: 05-20-2024 End: 05-20-2024 tropicamide 1 % 1 Drop (MYDRIACYL) Start: 05-20-2024 End: 05-20-2024 1 Drop, BOTH EYES, ONCE, 1 d ose, On Sun05/20/24 at 1130, FOR THE EYE Problems Active Problems Problem Classification Problem Date Documented Da te Episodic/Chronic Allergic reactions (2 sources) Allergy status to sulfonamides status; Translations: [Allergy status to narcotic agent status] Onset: 5 Episodic Anxiety disorders (1 source) Anxiety disorder, unspecified; Translations: [Anxiety disorder, unspecified] Onset: 5 Chronic Blindness and vision defects (3 sources) Bilateral hyperopia of eyes; Translations: [Hypermetropia, bilateral] 05-20-2024 Episodic Cardiac dysrhythmias (14 sources) Cardiac arrhythmia; Translations: [Cardiac arrhythmia, unspecified] Onset: 5 Chronic Cardiac dysrhythmias (4 sources) Tachycardia; Translations: [Tachycardia, unspecified] 12-24-2022 Episodic Chronic obstructive pulmonary disease and bronchiectasis (1 source) Chronic obstructive pulmonary disease, unspecified; Translations: [Chronic obstructive pulmonary disease, unspecified] Onset: 5 Chronic Congestive heart failure; nonhypertensive (1 source) Heart failure, unspecified; Translations: [Heart failure, unspecified] Onset: 5 Chronic Coronary atherosclerosis and other heart disease (20 sources) Coronary atherosclerosis; Translations: [Atherosclerotic heart disease of [place] coronary artery without angina pectoris] Onset: 2 Chronic Coronary atherosclerosis and other heart disease (4 sources) Presence of aortocoronary bypass graft; Translations: [Presence of aortocoronary bypass graft] Onset: 3 Episodic Diseases of white blood cells (2 sources) Leukocytosis; Translations: [Elevated white blood cell count, unspecified] Onset: 5 Chronic Disorders of lipid metabolism (20 sources) Pure hypercholesterolemia; Translations: [Pure hypercholesterolemia, unspecified] Onset: 2 Chronic Esophageal disorders (6 sources) Gastroesophageal reflux disease; Translations: [Gastro-esophageal reflux disease without esophagitis] Onset: 5 01-17-2022 Chronic Essential hypertension (20 sources) Essential (primary) hypertension; Translations: [Essential hypertension] Onset: 7 05-21-2017 Chronic Fracture of upper limb (1 source) Closed fracture of lower end of radius AND ulna; Translations: [Closed fracture of distal ends of left radius and ulna with routine healing, subsequent encounter] Episodic Hypertension with complications and secondary hypertension (1 source) Hypertensive heart disease with heart failure; Translations: [Hypertensive heart disease with heart failure] Onset: 5 Chronic Mood disorders (7 sources) Major depressive disorder; Translations: [Major depressive disorder, single episode, unspecified] Onset: 2 02-27-2022 Chronic Mood disorders (1 source) Mood disorders; Translations: [Depression, unspecified] Onset: 5 Nonspecific chest pain (11 sources) Chest pain; Translations: [Chest pain, unspecified] 01-31-2021 Episodic Comment on above: CHEST PAIN Osteoarthritis (7 sources) Bilateral shoulder osteoarthritis; Translations: [Primary osteoarthritis, right shoulder] Onset: 9 Resolved: 2 02-21-2022 Chronic Other acquired deformities (1 source) Varus deformity, not elsewhere classified, right knee; Translations: [Varus deformity, not elsewhere classified, right knee] Onset: 5 Episodic Other aftercare (1 source) Encounter for therapeutic drug level monitoring; Translations: [Encounter for therapeutic drug level monitoring] Onset: 5 Episodic Other aftercare (1 source) [facility] (current) use of anticoagulants; Translations: [long term care social worker (current) use of anticoagulants] Onset: 5 Episodic Other aftercare (1 source) Other prison (current) drug therapy; Translations: [Other prison (current) drug therapy] Onset: 5 Episodic Other connective tissue disease (1 source) Artificial knee joint present; Translations: [Presence of right artificial knee joint] Onset: 5 Chronic Other connective tissue disease (1 source) Presence of right artificial knee joint; Translations: [Presence of right artificial knee joint] Onset: 5 Chronic Other connective tissue disease (1 source) Presence of left artificial shoulder joint; Translations: [Presence of left artificial shoulder joint] Onset: 5 Chronic Other connective tissue disease (1 source) Full thickness rotator cuff tear; Translations: [Complete tear of left rotator cuff] Episodic Other connective tissue disease (1 source) Pain in right leg; Translations: [Pain in right leg] Onset: 5 Episodic Other gastrointestinal disorders (2 sources) Diarrhea, unspecified; Translations: [Diarrhea, unspecified] Onset: 3 Episodic Other gastrointestinal disorders (1 source) Other constipation; Translations: [Other constipation] Onset: 5 Episodic Other non-traumatic joint disorders (3 sources) Pain in left knee; Translations: [Pain in left knee] Onset: 3 Episodic Other non-traumatic joint disorders (2 sources) Pain in right knee; Translations: [Pain in right knee] Onset: 4 Episodic Other nutritional; endocrine; and metabolic disorders (1 source) Overweight; Translations: [Overweight] Onset: 5 Episodic Other nutritional; endocrine; and metabolic disorders (1 source) Body mass index (BMI) 27.0-27.9, adult; Translations: [Body mass index [BMI] 27.0-27.9, adult] Onset: 5 Episodic Other screening for suspected conditions (not mental disorders or infectious disease) (8 sources) Cardiovascular stress test abnormal; Translations: [Abnormal result of other cardiovascular function study] Onset: 5 Episodic Other skin disorders (1 source) Localized swelling, mass and lump, right lower limb; Translations: [Localized swelling, mass and lump, right lower limb] Onset: 5 Episodic Phlebitis; thrombophlebitis and thromboembolism (1 source) Personal history of other venous thrombosis and embolism; Translations: [Personal history of other venous thrombosis and embolism] Onset: 5 Episodic Respiratory failure; insufficiency; arrest (adult) (7 sources) Ventilator finding; Translations: [Dependence on respirator [ventilator] status] Onset: 2 02-24-2022 Chronic Past or Other Problems Problem Classification Problem Date Documented Date Episodic/Chronic Administrative/socia l admission (9 sources) Discharge status; Translations: [Encounter for administrative examinations, unspecified] Onset: 02-21-2022 02-21-2022 Episodic Diabetes mellitus without complication (1 source) Metabolic stress hyperglycemia; Translations: [Hyperglycemia, unspecified] Onset: 02-24-2022 Resolved: 02-27-2022 02-27-2022 Episodic Heart valve disorders (11 sources) Heart murmur; Translations: [Cardiac murmur, unspecified] Onset: 10-13-2024 Episodic Intracranial injury (9 sources) Epidural hemorrhage; Translations: [Epidural hemorrhage with loss of consciousness of unspecified duration, initial encounter] Onset: 10-24-2012 02-21-2022 Episodic Other fractures (2 sources) Fracture of multiple ribs ; Translations: [Multiple fractures of ribs, unspecified side, initial encounter for closed fracture] Onset: 10-24-2012 02-21-2022 Episodic Other nervous system disorders (1 source) Postoperative pain ; Translations: [Other acute postprocedural pain] Onset: 02-24-2022 Resolved: 02-27-2022 02-27-2022 Episodic Other nutritional; endocrine; and metabolic disorders (1 source) Body mass index 30+ - obesity; Translations: [Obesity, unspecified] Onset: 02-25-2022 Resolved: 02-27-2022 02-27-2022 Chronic Pleurisy; pneumothorax; pulmonary collapse (1 source) Atelectasis; Translations: [Atelectasis] Onset: 02-25-2022 Resolved: 02-27-2022 02-27-2022 Episodic Residual codes; unclassified (5 sources) History of cardiac catheterization; Translations: [Other specified postprocedural states] Onset: 01-21-2022 02-17-2022 Episodic Comment on above: LEFT MAIN: Mild calc ification; LEFT ANTERIOR DESCENDING ARTERY: PROX LAD: Severe calcification, Mild luminal irregularities less than 30%, MID LAD: at the level of the SP and DX: subtotally occluded with the mid to distal LAD filling late; SEPTAL: proximal: 85 % Stenosis; CIRCUMFLEX ARTERY: Mild luminal irregularitiesOM 1: Mid - eccentric: 75 % Stenosis, OM 2: Proximal - 50 % Stenosis, Mid - 25 % Stenosis; RIGHT CORONARY ARTERY: PROX RCA: Severe calcification, Mild luminal irregularities less than 30%, MID RCA: Mild luminal irregularities less than 30%; RT PDA: Ostial - subtotally occluded: remainder of the vessel filling late; COLLATERAL FLOW: Collateral flow from Left to Right: RECOMMENDATIONS: Medical therapy;Surgery consult for coronary revascularization, per cardiac cath Dr. Montez 02/17/22 Residual codes; unclassified (7 sources) Problem with continuity of care; Translations: [Problem with continuity of care] Onset: 02-27-2022 02-27-2022 Episodic Unclassified (5 sources) bilateral shoulder surgery 11-22-2021 Results Test Name Value Interpretation Reference Range Facility Venous Duplex US, Unilateral on 01-30-2025 Venous Duplex US, Unilateral [facility] [address] [place] [address] Venous Duplex US, Unilateral 01/30/25 1006 MR#: [id number] Acct: [id number] Name: LISANDRO HYDE Rep #: [id number] : 1955 70 From: Reji Messina MD Attending Dr: Dr. Samreen Mcknight MD Status: REG CLI Ordering Dr: Samreen Mcknight MD Date: 01/30/25 Location: [facility] Sex: M C Admitted: Reason For Study Reason For Study: Right leg pain RIGHT LEFT GSV is normal. CFV is compressible, spontaneous, phasic, competent, CFV is compressible, spontaneous, phasic, competent and demonstrates normal augmentation. and demonstrates normal augmentation. FV is compressible, spontaneous, phasic, competent and demonstrates normal augmentation. POP V is compressible, spontaneous, phasic, competent and demonstrates normal augmentation. T/P Trunk is compressible. PTV is compressible. RT PerV is compressible. Procedure This is a venous duplex using B-mode, color flow and spectral Doppler. Exam performed in department. A preliminary report was called and/or faxed to Dr. Mcknight. VL/Venous Duplex US, Unilateral Interpretation Summary Deep veins of the right lower extremity are patent and compressible segmentally. There is no evidence of right lower extremity deep vein thrombosis. Valvular competence appears intact within the proximal deep venous system on the right . The right great saphenous vein appears patent and compressible segmentally. The left common femoral vein is patent and compressible . Ordering Physician: Samreen Mcknight Referring Physician: Rina Johnson Performed By: Mercedes Nascimento RVT 01/30/251707 Date Reji Messina MD CC: PH[employer]ACE[employer] PLANT OPERATOR-C Rina Johnson; Dr. Samreen Mcknight MD Date Dictated: 01/30/25 1006 Date Transcribed: 01/30/251707 Seismograph Helper: Signed Normal [facility] Venous Duplex US, Unilateral on 01-22-2025 Venous Duplex US, Unilateral [facility] [address] [place] [address] Venous Duplex US, Unilateral 01/22/25 1322 MR#: [id number] Acct: [id number] Name: LISANDRO HYDE Rep #: [id number] : 1955 70 From: Daniel Samuels MD Attending Dr: Dr. Samreen Mcknight MD Status: REG CLI Ordering Dr: Samreen Mcknight MD Date: 01/22/25 Location: [facility] Sex: M C Admitted: Reason For Study Reason For Study: Swelling RIGHT LEFT GSV is normal. CFV is compressible, spontaneous, phasic, competent, CFV is compressible, spontaneous, phasic, competent and demonstrates normal augmentation. and demonstrates normal augmentation. FV is compressible, spontaneous, phasic, competent and demonstrates normal augmentation. POP V is compressible, spontaneous, phasic, competent and demonstrates normal augmentation. T/P Trunk is compressible. PTV is compressible. RT PerV is compressible. Procedure This is a venous duplex using B-mode, color flow and spectral Doppler. Exam performed in department. A preliminary report was called and/or faxed to Samreen Mcknight MD. VL/Venous Duplex US, Unilateral Interpretation Summary Deep veins of the right lower extremity are patent and compressible segmentally. There is no evidence of right lower extremity deep vein thrombosis. The right great saphenous vein appears patent and compressible segmentally. Ordering Physician: Samreen Mcknight Referring Physician: Rina Johnson NP Performed By: Jackie Perry RVT 01/22/251818 Date Daniel Samuels MD CC: PHARMACE[employer] PLANT OPERATOR-C Rina Johnson; Dr. Samreen Mcknight MD Date Dictated: 01/22/25 1322 Date Transcribed: 01/22/251818 Seismograph Helper: Signed Normal [facility] Venous duplex ultrasound rep ortOrdered By: Daniel Samuels on 01-22-2025 US Vein [facility] [address] [place] [address] Venous Duplex US, Unilateral 01/22/25 1322 MR#: [id number] Acct: [id number] Name: LISANDRO HYDE Rep #:[id number] : 1955 70 From: Daniel Gutierrez Attending Dr: Dr. Samreen Mcknight MD Status: REG CLI Ordering Dr: Samreen Mcknight MD Date: 1 Location: [facility] Sex: M C Admitted: Reason For Study Reason For Study: Swelling RIGHT LEFT GSV is normal. CFV is compressible, spontaneous, phasic, competent, CFV is compressible, spontaneous, phasic, competent and demonstrates normal augmentation. and demonstrates normal augmentation. FV is compressible, spontaneous, phasic, competent and demonstrates normal augmentation. POP V is compressible, spontaneous, phasic, competent and demonstrates normal augmentation. T/P Trunk is compressible. PTV is compressible. RT PerV is compressible. Procedure This is a venous duplex using B-mode, color flow and spectral Doppler. Exam performed in department. A preliminary report was called and/or faxed to Samreen Mcknight MD. VL/Venous Duplex US, Unilateral Interpretation Summary Deep veins of the right lower extremity are patent and compressible segmentally.There is no evidence of right lower extremity deep vein thrombosis. The right great saphenous vein appears patent and compressible segmentally. Ordering Physician: Samreen Mcknight Referring Physician: Rina Johnson NP Performed By: Jackie Perry, JEREMYT 01/22/25 1819 Date _ Daniel Samuels MD CC: MADHAVI Johnson; Dr. Samreen Mcknight MD ~ Date Dictated: 01/22/25 1322 Date Transcribed: 01/22/251818 Seismograph Helper: Carmelo [facility] Work Phone: CBC + DIFFon 12-30-2024 Baso # 0.03 x10EE3/UL Normal 0.00 - 0.10 [facility] Comment on above: Performed By: #### 2 [id number] #### [facility],[address] [place] [address] Basophils/100 WBC (Bld) 0.2 % Normal 0.0 - 2.0 [facility] Comment on above: Performed By: #### 2 82149 #### [facility],[address] [place] [address] CBC + DIFF Normal [facility] Comment on above: Result Comment: CBC- COMPLETE BLOOD COUNT Performed By: #### 2 57545 #### [facility],[address] [place] [address] EO # 0.47 x10EE3/UL Normal 0.00 - 0.50 [facility] Comment on above: Performed By: #### 2 54772 #### [facility],[address] [place], [place] [address] Eosinophils/100 WBC (Bld) 4.1 % Normal 0.0 - 7.0 [facility] Comment on above: Performed By: #### 2 95848 #### [facility],[address] [place], [place] [address] Erythrocyte distribution width (RBC) [Ratio] 14.2 % Normal 12.0 - 15.6 [facility] Comment on above: Performed By: #### 2 12139 #### [facility],[address] [place] [address] Hematocrit (Bld) [Volume fraction] 35.7 % Low 40.0 - 52.0 [facility] Comment on above: Performed By: #### 2 78924 #### [facility],[address] [place] [address]95 Hemoglobin (Bld) [Mass/Vol] 12.0 g/dL Low 13.0 - 17.5 [facility] Comment on above: Performed By: #### 2 89584 #### [facility],[address] [place] [address]102 Lymph # 1.88 x10EE3/UL Normal 0.80 - 2.80 [facility] Comment on above: Performed By: #### 2 79415 #### [facility],[address] [place] [address]238 Lymphocytes/100 WBC (Bld) 16.7 % Low 20.0 - 45.0 [facility] Comment on above: Performed By: #### 2 57211 #### [facility],[address] [place] [address]102 MANUAL DIFF N/A Normal [facility] Comment on above: Performed By: #### 2 61280 #### [facility],[address] [place] [address] 82371 MCH (RBC) [Entitic mass] 28 pg Normal 27 - 33 [facility] Comment on above: Performed By: #### 2 40207 #### [facility],[address] [place] [address]2339 MCHC 34 X10 3 Normal 32 - 36 [facility] Comment on above: Performed By: #### 2 87574 #### [facility],[address] [place] [address]3836 MCV (RBC) [Entitic vol] 83 fL Normal 81 - 98 [facility] Comment on above: Performed By: #### 2 09470 #### [facility],[address] [place] [address] 25179 Gilliam # 1.03 x10EE3/UL High 0.20 - 1.00 [facility] Comment on above: Performed By: #### 2 48541 #### [facility],[address] [place] [address] 02411 MONOS % 9.1 % Normal 0.0 - 10.0 [facility] Comment on above: Performed By: #### 2 30777 #### [facility],[address] [place] [address] 12693 Morphology Louis (Bld) [Interp] N/A Normal [facility] Comment on above: Performed By: #### 2 73543 #### [facility],[address] [place] [address] 89671 Neut # 7.87 x10EE3/UL High 1.50 - 7.10 [facility] Comment on above: Performed By: #### 2 66432 #### [facility],[address] [place] [address] 70504 Neutrophils/100 WBC (Bld) 69.8 % Normal 46.0 - 76.0 [facility] Comment on above: Performed By: #### 2 15235 #### [facility],[address] [place] [address] 15432 PLATELET 473 x10EE3/UL High 150 - 450 [facility] Comment on above: Performed By: #### 2 67649 #### [facility],[address] [place] [address] 04387 Platelet mean volume (Bld) [Entitic vol] 7.6 fL Normal 6.4 - 10.5 [facility] Comment on above: Result Comment: AUTO MATED DIFFERENTIAL Performed By: #### 2 11446 #### [facility],[address] [place] [address] 15364 RBC 4.32 x 10EE6/UL Low 4.50 - 6.00 [facility] Comment on above: Performed By: #### 2 09740 #### [facility],[address] [place] [address] 13012 WBC 11.3 x 10EE3/UL High 4.5 - 10.8 [facility] Comment on above: Performed By: #### 2 49723 #### [facility],[address] [place] [address]94 .Auto Diffon 12-24-2024 Basophil, Absolute 0.0 10 3/mcL Normal 0.0-0.3 [facility] Comment on above: Performed By: #### A MEG, CBC, ADIFF, BMP, GFR #### [address] [address] Basophils/100 WBC (Bld) 0.2 % Normal 0.0-2.5 [facility] Comment on above: Performed By: #### A MEG, CBC, ADIFF, BMP, GFR #### [address] [address] Eosinophil, Absolute 0.0 10 3/mcL Normal 0.0-0.7 [facility] Comment on above: Performed By: #### A MEG, CBC, ADIFF, BMP, GFR #### [address] [address] Eosinophils/100 WBC (Bld) 0.1 % Normal 0.0-6.0 [facility] Comment on above: Performed By: #### A MEG, CBC, ADIFF, BMP, GFR #### [address] [address] Lymphocyte, Absolute 1.3 10 3/mcL Normal 0.9-4.3 [facility] Comment on above: Performed By: #### A MEG, CBC, ADIFF, BMP, GFR #### [address] [address] Lymphocytes/100 WBC (Bld) 6.4 % Low 20.0-40.0 [facility] Comment on above: Performed By: #### A MEG, CBC, ADIFF, BMP, GFR #### [address] [address] Monocyte, Absolute 1.9 10 3/mcL High 0.1-1.4 [facility] Comment on above: Performed By: #### A MEG, CBC, ADIFF, BMP, GFR #### [address] [place], [place] [address] Monocytes/100 WBC (Bld) 9.3 % Normal 2.0-13.0 [facility] Comment on above: Performed By: #### A MEG, CBC, ADIFF, BMP, GFR #### [address] [place], [place] [address] Neutrophils/100 WBC (Bld) 84.0 % High 50.0-75.0 [facility] Comment on above: Performed By: #### A MEG, CBC, ADIFF, BMP, GFR #### [address] [address] .GFRon 12-24-2024 Estimated Glomerular Filtration Rate 93 ml/min/1.73sqm Normal [facility] Comment on above: Result Comment: Stages of Chronic Kidney Disease (CKD) Stage Description eGFR(ml/min/1.73 sq.m.) CKD 1 Normal kidney function or >=90 normal kindney function with possible kidney damage (ex. Proteinuria) CKD 2 Kidney damage with mild loss 60-89 of kidney function CKD 3a Mild to moderate loss of kidney 45-59 function CKD 3b Moderate to severe loss of 30-44 of kindey function CKD 4 Severe loss of kidney function 15-29 CKD 5 Kidney failure <15 Note: (go live 2024) the eGFR calculation was updated to the 2020 CKD-EPI creatinine equation without a race factor to calculate the eGFR results. Performed By: #### A LB, ADIFF, ABOGEL, GFR, ANEU, CBC, ABSGEL, BMP #### [address] [place], [place] [address] .NEUABSon 12-24-2024 Neutrophil, Absolute 16.8 10 3/mcL High 2.3-8.1 [facility] Comment on above: Performed By: #### A LB, ADIFF, ABOGEL, GFR, ANEU, CBC, ABSGEL, BMP #### [address] [place], [place] [address] BMPon 12-24-2024 BUN/Creatinine Ratio 29 ratio High 7-27 [facility] Comment on above: Performed By: #### A LB, ADIFF, ABOGEL, GFR, ANEU, CBC, ABSGEL, BMP #### [address] [address] Calcium [Mass/Vol] 8.6 mg/dL Normal 8.4-10.2 [facility] Comment on above: Performed By: #### A LB, ADIFF, ABOGEL, GFR, ANEU, CBC, ABSGEL, BMP #### [address] [address] Chloride [Moles/Vol] 104 mmol/L Normal 98-107 [facility] Comment on above: Performed By: #### A LB, ADIFF, ABOGEL, GFR, ANEU, CBC, ABSGEL, BMP #### [place] [address] CO2 [Moles/Vol] 30 mmol/L Normal 23-31 [facility] Comment on above: Performed By: #### A LB, ADIFF, ABOGEL, GFR, ANEU, CBC, ABSGEL, BMP #### [address] [address] Creatinine [Mass/Vol] 0.86 mg/dL Normal 0.67-1.17 [facility] Comment on above: Performed By: #### A LB, ADIFF, ABOGEL, GFR, ANEU, CBC, ABSGEL, BMP #### [place] [address] Electrolyte Balance 3.0 mEq/L Low 4.0-15.0 [facility] Comment on above: Performed By: #### A LB, ADIFF, ABOGEL, GFR, ANEU, CBC, ABSGEL, BMP #### [place] [address] Glucose [Mass/Vol] 116 mg/dL High 83-110 [facility] Comment on above: Performed By: #### A LB, ADIFF, ABOGEL, GFR, ANEU, CBC, ABSGEL, BMP #### [place] [address] Potassium [Moles/Vol] 3.9 mmol/L Normal 3.5-5.1 [facility] Comment on above: Performed By: #### A LB, ADIFF, ABOGEL, GFR, ANEU, CBC, ABSGEL, BMP #### [place] [address] Sodium [Moles/Vol] 137 mmol/L Normal 136-145 [facility] Comment on above: Performed By: #### A LB, ADIFF, ABOGEL, GFR, ANEU, CBC, ABSGEL, BMP #### [place] [address] Urea nitrogen [Mass/Vol] 25 mg/dL High 7-18 [facility] Comment on above: Performed By: #### A LB, ADIFF, ABOGEL, GFR, ANEU, CBC, ABSGEL, BMP #### [place] [id number] CBCon 12-24-2024 Erythrocyte distribution width (RBC) [Ratio] 15.0 % Normal 11.5-15.5 [facility] Comment on above: Performed By: #### A MEG, CBC, ADIFF, BMP, GFR #### [place] [address] Hematocrit (Bld) [Volume fraction] 33.2 % Low 40.0-52.0 [facility] Comment on above: Performed By: #### A MEG, CBC, ADIFF, BMP, GFR #### [place] [address] Hgb 11.1 G/dL Low 13.0-17.5 [facility] Comment on above: Performed By: #### A MEG, CBC, ADIFF, BMP, GFR #### [place] [address] MCH (RBC) [Entitic mass] 28.2 pg Normal 27.0-33.0 [facility] Comment on above: Performed By: #### A MEG, CBC, ADIFF, BMP, GFR #### [place] [address] MCHC 33.6 G/dL Normal 32.0-36.0 [facility] Comment on above: Performed By: #### A MEG, CBC, ADIFF, BMP, GFR #### [address] [address] MCV (RBC) [Entitic vol] 83.8 fL Normal 81.0-100.0 [facility] Comment on above: Performed By: #### A MEG, CBC, ADIFF, BMP, GFR #### [place] [address] Platelet 219 10 3/mcL Normal 150-450 [facility] Comment on above: Performed By: #### A MEG, CBC, ADIFF, BMP, GFR #### [place] [address] Platelet mean volume (Bld) [Entitic vol] 7.2 fL Normal 6.4-10.5 [facility] Comment on above: Performed By: #### A MEG, CBC, ADIFF, BMP, GFR #### [place] [address] RBC 3.96 10 6/mcL Low 4.50-6.00 [facility] Comment on above: Performed By: #### A MEG, CBC, ADIFF, BMP, GFR #### [place] [address] WBC 20.0 10 3/mcL High 4.5-10.8 [facility] Comment on above: Performed By: #### A MEG, CBC, ADIFF, BMP, GFR #### [place] [address] LABORATORYOrdered By: SYSTEM SYSTEM on 12-24-2024 Basophils (Bld) [#/Vol] 0.0 103/mcL Normal 0.0 - 0.3 10^3/mcL AO Workflow SS Basophils/100 WBC (Bld) 0.2 % Normal 0.0 - 2.5 % AO Workflow SS Calcium [Mass/Vol] 8.6 mg/dL Normal 8.4 - 10. 2 mg/dL AO ADM SS Chloride [Moles/Vol] 104 mmol/L Normal 98 - 10 7 mmol/L AO ADM SS CO2 [Moles/Vol] 30 mmol/L Normal 23 - 31 mmol/L AO ADM SS Creatinine [Mass/Vol] 0.86 mg/dL Normal 0.67 - 1.17 mg/dL AO ADM SS Electrolyte Balance 3.0 mEq/L Low 4.0 - 15 .0 mEq/L AO ADM SS Eosinophil, Absolute 0.0 103/mcL Normal 0.0 - 0 .7 10^3/mcL AO Workflow SS Eosinophils/100 WBC (Bld) 0.1 % Normal 0.0 - 6.0 % AO Workflow SS Erythrocyte distribution width (RBC) [Ratio] 15.0 % Normal 11.5 - 15.5 % AO Workflow SS Estimated Glomerular Filtration Rate 93 ml/min/1.73sqm Invalid Interpretation Code AO Chemistry S Comment on above: Interpretive Data: Stages of Chronic Kidney Disease (CKD) Stage Description eGFR(ml/min/1.73 sq.m.) CKD 1 Normal kidney function or >=90 normal kindney function with possible kidney damage (ex. Proteinuria) CKD 2 Kidney damage with mild loss 60-89 of kidney function CKD 3a Mild to moderate loss of kidney 45-59 function CKD 3b Moderate to severe loss of 30-44 of kindey function CKD 4 Severe loss of kidney function 15-29 CKD 5 Kidney failure <15 Note: (go live 2024) the eGFR calculation was updated to the 2020 CKD-EPI creatinine equation without a race factor to calculate the eGFR results. Glucose [Mass/Vol] 116 mg/dL High 83 - 110 mg/dL AO ADM SS Hematocrit (Bld) [Volume fraction] 33.2 % Low 40.0 - 52.0 % AO Workflow SS Hemoglobin (Bld) [Mass/Vol] 11.1 G/dL Low 13.0 - 17.5 G/dL AO Workflow SS Lymphocytes (Bld) [#/Vol] 1.3 103/mcL Normal 0.9 - 4.3 10^3/mcL AO Workflow SS Lymphocytes/100 WBC (Bld) 6.4 % Low 20.0 - 40.0 % AO Workflow SS MCH (RBC) [Entitic mass] 28.2 pg Normal 27.0 - 33.0 pg AO Workflow SS MCHC 33.6 G/dL Normal 32.0 - 36.0 G/dL AO Workflow SS MCV (RBC) [Entitic vol] 83.8 fL Normal 81.0 - 100.0 fL AO Workflow SS Monocytes (Bld) [#/Vol] 1.9 103/mcL High 0.1 - 1.4 10^3/mcL AO Workflow SS Monocytes/100 WBC (Bld) 9.3 % Normal 2.0 - 13.0 % AO Workflow SS Neutrophils (Bld) [#/Vol] 16.8 103/mcL High 2.3 - 8.1 10^3/mcL AO Workflow SS Neutrophils/100 WBC (Bld) 84.0 % High 50.0 - 75.0 % AO Workflow SS Platelet mean volume (Bld) [Entitic vol] 7.2 fL Normal 6.4 - 10.5 fL AO Workflow SS Platelets (Bld) [#/Vol] 219 103/mcL Normal 150 - 450 10^3/mcL AO Workflow SS Potassium [Moles/Vol] 3.9 mmol/L Normal 3.5 - 5.1 mmol/L AO ADM SS RBC (Bld) [#/Vol] 3.96 106/mcL Low 4.50 - 6.0 0 10^6/mcL AO Workflow SS Sodium [Moles/Vol] 137 mmol/L Normal 136 - 145 mmol/L AO ADM SS Urea nitrogen [Mass/Vol] 25 mg/dL High 7 - 18 mg/dL AO ADM SS Urea nitrogen/Creatinine [Mass ratio] 29 ratio High 7 - 27 ratio AO ADM SS WBC (Bld) [#/Vol] 20.0 103/mcL High 4.5 - 10.8 10^3/mcL AO Workflow SS ABO/Rh (Gel)on 12-23-2024 ABO/Rh Interp Positive Invalid Interpretation Code [facility] Comment on above: Performed By: #### A LB, ADIFF, ABOGEL, GFR, ANEU, CBC, ABSGEL, BMP #### [address] [address] ABS (Gel)on 12-23-2024 ABSC Interp (Gel) Negative Normal [facility] Comment on above: Performed By: #### A LB, ADIFF, ABOGEL, GFR, ANEU, CBC, ABSGEL, BMP #### [address] [place], [place] [address] LABORATORYOrdered By: Danuta Quijano on 12-23-2024 ABO and Rh group Nom (Bld) Blood group O Rh(D) positive Invalid Interpretation Code AO BB Auto SS Blood group antibody screen Ql Negative ABSC (12/23/24 5:49 AM) Normal AO BB Auto SS US ANESTHESIA BLOCKon 2024 US ANESTHESIA BLOCK ORIGINAL Images acquired, not reported on this accession number. Normal [facility] XR KNEE 1 OR 2 VIEWS RIGHTon 12-23-2024 XR KNEE 1 OR 2 VIEWS RIGHT ORIGINAL EXAMINATION: POSTOPERATIVE KNEE TECHNIQUE: 2 views of theright knee were obtained. COMPARISON: CT right knee 12/11/2024 HISTORY: ORDERING SYSTEM PROVIDED HISTORY: Reason for Exam: Status Post Arthroplasty FINDINGS: There is normal mineralization. No acute fracture or dislocation is seen. The patient is status post right knee replacement with appropriate positioning of the prosthesis. There are postsurgical changes with a small joint effusion. IMPRESSION: Status post right knee replacement with appropriate positioning of the prosthesis. Interpreted by: Maverick Barrios MD Preliminary Report By: Maverick Barrios MD Electronically signed By Maverick Barrios MD Dictated Date: 12/23/2024 9:34:23 AM Prelim Date: 12/23/2024 9:35:18 AM Sign Date: 12/23/2024 9:35:18 AM Ordering Provider: SAMREEN MCKNIGHT Normal [facility] .Auto Diffon 12-11-2024 Basophil, Absolute 0.0 10 3/mcL Normal 0.0-0.3 [facility] Comment on above: Performed By: #### A LB, ADIFF, ABOGEL, GFR, ANEU, CBC, ABSGEL, BMP #### [address] [place], [place] [address] Basophils/100 WBC (Bld) 0.4 % Normal 0.0-2.5 [facility] Comment on above: Performed By: #### A LB, ADIFF, ABOGEL, GFR, ANEU, CBC, ABSGEL, BMP #### [address] [place], [place] [address] Eosinophil, Absolute 0.4 10 3/mcL Normal 0.0-0.7 [facility] Comment on above: Performed By: #### A LB, ADIFF, ABOGEL, GFR, ANEU, CBC, ABSGEL, BMP #### [address] [address] Eosinophils/100 WBC (Bld) 3.0 % Normal 0.0-6.0 [facility] Comment on above: Performed By: #### A LB, ADIFF, ABOGEL, GFR, ANEU, CBC, ABSGEL, BMP #### [address] [address] Lymphocyte, Absolute 1.1 10 3/mcL Normal 0.9-4.3 [facility] Comment on above: Performed By: #### A LB, ADIFF, ABOGEL, GFR, ANEU, CBC, ABSGEL, BMP #### [address] [address] Lymphocytes/100 WBC (Bld) 8.9 % Low 20.0-40.0 [facility] Comment on above: Performed By: #### A LB, ADIFF, ABOGEL, GFR, ANEU, CBC, ABSGEL, BMP #### [address] [address] Monocyte, Absolute 0.7 10 3/mcL Normal 0.1-1.4 [facility] Comment on above: Performed By: #### A LB, ADIFF, ABOGEL, GFR, ANEU, CBC, ABSGEL, BMP #### [address] [address] Monocytes/100 WBC (Bld) 5.6 % Normal 2.0-13.0 [facility] Comment on above: Performed By: #### A LB, ADIFF, ABOGEL, GFR, ANEU, CBC, ABSGEL, BMP #### [address] [address] Neutrophils/100 WBC (Bld) 82.1 % High 50.0-75.0 [facility] Comment on above: Performed By: #### A LB, ADIFF, ABOGEL, GFR, ANEU, CBC, ABSGEL, BMP #### [address] [address] .GFRon 12-11-2024 Estimated Glomerular Filtration Rate 91 ml/min/1.73sqm Normal [facility] Comment on above: Result Comment: Stages of Chronic Kidney Disease (CKD) Stage Description eGFR(ml/min/1.73 sq.m.) CKD 1 Normal kidney function or >=90 normal kindney function with possible kidney damage (ex. Proteinuria) CKD 2 Kidney damage with mild loss 60-89 of kidney function CKD 3a Mild to moderate loss of kidney 45-59 function CKD 3b Moderate to severe loss of 30-44 of kindey function CKD 4 Severe loss of kidney function 15-29 CKD 5 Kidney failure <15 Note: (go live 2024) the eGFR calculation was updated to the 2020 CKD-EPI creatinine equation without a race factor to calculate the eGFR results. Performed By: #### A LB, ADIFF, ABOGEL, GFR, ANEU, CBC, ABSGEL, BMP #### [address] [address] .NEUABSon 12-11-2024 Neutrophil, Absolute 10.1 10 3/mcL High 2.3-8.1 [facility] Comment on above: Performed By: #### A LB, ADIFF, ABOGEL, GFR, ANEU, CBC, ABSGEL, BMP #### [address] [address] ABO/Rh (Gel)on 12-11-2024 ABO/Rh Interp Positive Invalid Interpretation Code [facility] Comment on above: Performed By: #### A LB, ADIFF, ABOGEL, GFR, ANEU, CBC, ABSGEL, BMP #### [address] [address] ABS (Gel)on 12-11-2024 ABSC Interp (Gel) Negative Normal [facility] Comment on above: Performed By: #### A LB, ADIFF, ABOGEL, GFR, ANEU, CBC, ABSGEL, BMP #### [address] [address] ALBon 12-11-2024 Albumin Level 3.7 G/dL Normal 3.4-4.8 [facility] Comment on above: Performed By: #### A LB, ADIFF, ABOGEL, GFR, ANEU, CBC, ABSGEL, BMP #### [address] [address] BMPon 12-11-2024 BUN/Creatinine Ratio 22 ratio Normal 7-27 [facility] Comment on above: Performed By: #### A LB, ADIFF, ABOGEL, GFR, ANEU, CBC, ABSGEL, BMP #### [address] [address] Calcium [Mass/Vol] 9.5 mg/dL Normal 8.4-10.2 [facility] Comment on above: Performed By: #### A LB, ADIFF, ABOGEL, GFR, ANEU, CBC, ABSGEL, BMP #### [address] [address] Chloride [Moles/Vol] 103 mmol/L Normal 98-107 [facility] Comment on above: Performed By: #### A LB, ADIFF, ABOGEL, GFR, ANEU, CBC, ABSGEL, BMP #### [address] [address] CO2 [Moles/Vol] 29 mmol/L Normal 23-31 [facility] Comment on above: Performed By: #### A LB, ADIFF, ABOGEL, GFR, ANEU, CBC, ABSGEL, BMP #### [address] [address] Creatinine [Mass/Vol] 0.91 mg/dL Normal 0.67-1.17 [facility] Comment on above: Performed By: #### A LB, ADIFF, ABOGEL, GFR, ANEU, CBC, ABSGEL, BMP #### [address] [address] Electrolyte Balance 8.0 mEq/L Normal 4.0-15.0 [facility] Comment on above: Performed By: #### A LB, ADIFF, ABOGEL, GFR, ANEU, CBC, ABSGEL, BMP #### [address] [place] [address] Glucose [Mass/Vol] 97 mg/dL Normal 83-110 [facility] Comment on above: Performed By: #### A LB, ADIFF, ABOGEL, GFR, ANEU, CBC, ABSGEL, BMP #### [address] [address] Potassium [Moles/Vol] 4.0 mmol/L Normal 3.5-5.1 [facility] Comment on above: Performed By: #### A LB, ADIFF, ABOGEL, GFR, ANEU, CBC, ABSGEL, BMP #### [id number] Sodium [Moles/Vol] 140 mmol/L Normal 136-145 [facility] Comment on above: Performed By: #### A LB, ADIFF, ABOGEL, GFR, ANEU, CBC, ABSGEL, BMP #### [address] [place] [address] Urea nitrogen [Mass/Vol] 20 mg/dL High 7-18 [facility] Comment on above: Performed By: #### A LB, ADIFF, ABOGEL, GFR, ANEU, CBC, ABSGEL, BMP #### [address] [address] CBCon 12-11-2024 Erythrocyte distribution width (RBC) [Ratio] 15.3 % Normal 11.5-15.5 [facility] Comment on above: Order Comment: Pre-A dmission Testing Performed By: #### A LB, ADIFF, ABOGEL, GFR, ANEU, CBC, ABSGEL, BMP #### [address] [address] Hematocrit (Bld) [Volume fraction] 42.6 % Normal 40.0-52.0 [facility] Comment on above: Order Comment: Pre-A dmission Testing Performed By: #### A LB, ADIFF, ABOGEL, GFR, ANEU, CBC, ABSGEL, BMP #### [address] [address] Hgb 14.1 G/dL Normal 13.0-17.5 [facility] Comment on above: Order Comment: Pre-A dmission Testing Performed By: #### A LB, ADIFF, ABOGEL, GFR, ANEU, CBC, ABSGEL, BMP #### [address] [address] MCH (RBC) [Entitic mass] 28.2 pg Normal 27.0-33.0 [facility] Comment on above: Order Comment: Pre-A dmission Testing Performed By: #### A LB, ADIFF, ABOGEL, GFR, ANEU, CBC, ABSGEL, BMP #### [address] [address] MCHC 33.2 G/dL Normal 32.0-36.0 [facility] Comment on above: Order Comment: Pre-A dmission Testing Performed By: #### A LB, ADIFF, ABOGEL, GFR, ANEU, CBC, ABSGEL, BMP #### [address] [address] MCV (RBC) [Entitic vol] 84.9 fL Normal 81.0-100.0 [facility] Comment on above: Order Comment: Pre-A dmission Testing Performed By: #### A LB, ADIFF, ABOGEL, GFR, ANEU, CBC, ABSGEL, BMP #### [address] [address] Platelet 294 10 3/mcL Normal 150-450 [facility] Comment on above: Order Comment: Pre-A dmission Testing Performed By: #### A LB, ADIFF, ABOGEL, GFR, ANEU, CBC, ABSGEL, BMP #### [address] [address] Platelet mean volume (Bld) [Entitic vol] 7.3 fL Normal 6.4-10.5 [facility] Comment on above: Order Comment: Pre-A dmission Testing Performed By: #### A LB, ADIFF, ABOGEL, GFR, ANEU, CBC, ABSGEL, BMP #### [address] [place] [address] RBC 5.01 10 6/mcL Normal 4.50-6.00 [facility] Comment on above: Order Comment: Pre-A dmission Testing Performed By: #### A LB, ADIFF, ABOGEL, GFR, ANEU, CBC, ABSGEL, BMP #### [facility] [address] [place], [place] [address] WBC 12.3 10 3/mcL High 4.5-10.8 [facility] Comment on above: Order Comment: Pre-A dmission Testing Performed By: #### A LB, ADIFF, ABOGEL, GFR, ANEU, CBC, ABSGEL, BMP #### [facility] [address] [place], [place] [address] CT KNEE W/O CONTRAST RIGHTon 12-11-2024 CT KNEE W/O CONTRAST RIGHT ORIGINAL EXAMINATION: CT OF THE RIGHT KNEE WITHOUT CONTRAST 12/11/2024 2:44 pm TECHNIQUE: CT of the right knee was performed without the administration of intravenous contrast. Multiplanar reformatted images are provided for review. Automated exposure control, iterative reconstruction, and/or weight based adjustment of the mA/kV was utilized to reduce the radiation dose to as low as reasonably achievable. COMPARISON: None. HISTORY ORDERING SYSTEM PROVIDED HISTORY: Reason for Exam: UNILATERAL OSTEOARTHRITIS RIGHT KNEE FINDINGS: Bones: No evidence of acute fracture or dislocation. No aggressive appearing osseous abnormality or periostitis. Soft Tissue: No significant soft tissue edema or fluid collections. Atherosclerotic vascular calcifications. Joint: Moderate to severe medial compartment joint space narrowing, with subchondral sclerosis. Moderate patellofemoral joint space narrowing and marginal osteophytes. Lateral compartment is mostly maintained, with small marginal osteophytes. IMPRESSION: Tricompartmental osteoarthritis worse medially. Moderate effusion Interpreted by: Master Lovelace Preliminary Report By: Master Lovelace Electronically signed By Master Lovelace Dictated Date: 12/11/2024 5:03:05 PM Prelim Date: 12/11/2024 5:05:40 PM Sign Date: 12/11/2024 5:05:40 PM Ordering Provider: SAMREEN Roblero [facility] LABORATORYOrdered By: Gem Maurice on 12-11-2024 ABO and Rh group Nom (Bld) Blood group O Rh(D) positive Invalid Interpretation Code AO BB Auto SS Blood group antibody screen Ql Negative ABSC (12/11/24 2:18 PM) Normal AO BB Auto SS LABORATORYOrdered By: SYSTEM SYSTEM on 12-11-2024 Albumin BCP dye [Mass/Vol] 3.7 G/dL Normal 3.4 - 4.8 G/dL AO ADM SS Basophils (Bld) [#/Vol] 0.0 103/mcL Normal 0.0 - 0.3 10^3/mcL AO Workflow SS Basophils/100 WBC (Bld) 0.4 % Normal 0.0 - 2.5 % AO Workflow SS Calcium [Mass/Vol] 9.5 mg/dL Normal 8.4 - 10. 2 mg/dL AO ADM SS Chloride [Moles/Vol] 103 mmol/L Normal 98 - 10 7 mmol/L AO ADM SS CO2 [Moles/Vol] 29 mmol/L Normal 23 - 31 mmol/L AO ADM SS Creatinine [Mass/Vol] 0.91 mg/dL Normal 0.67 - 1.17 mg/dL AO ADM SS Electrolyte Balance 8.0 mEq/L Normal 4.0 - 15 .0 mEq/L AO ADM SS Eosinophil, Absolute 0.4 103/mcL Normal 0.0 - 0 .7 10^3/mcL AO Workflow SS Eosinophils/100 WBC (Bld) 3.0 % Normal 0.0 - 6.0 % AO Workflow SS Erythrocyte distribution width (RBC) [Ratio] 15.3 % Normal 11.5 - 15.5 % AO Workflow SS Estimated Glomerular Filtration Rate 91 ml/min/1.73sqm Invalid Interpretation Code AO Chemistry S Comment on above: Interpretive Data: Stages of Chronic Kidney Disease (CKD) Stage Description eGFR(ml/min/1.73 sq.m.) CKD 1 Normal kidney function or >=90 normal kindney function with possible kidney damage (ex. Proteinuria) CKD 2 Kidney damage with mild loss 60-89 of kidney function CKD 3a Mild to moderate loss of kidney 45-59 function CKD 3b Moderate to severe loss of 30-44 of kindey function CKD 4 Severe loss of kidney function 15-29 CKD 5 Kidney failure <15 Note: (go live 2024) the eGFR calculation was updated to the 2020 CKD-EPI creatinine equation without a race factor to calculate the eGFR results. Glucose [Mass/Vol] 97 mg/dL Normal 83 - 110 mg/dL AO ADM SS Hematocrit (Bld) [Volume fraction] 42.6 % Normal 40.0 - 52.0 % AO Workflow SS Hemoglobin (Bld) [Mass/Vol] 14.1 G/dL Normal 13.0 - 17.5 G/dL AO Workflow SS Lymphocytes (Bld) [#/Vol] 1.1 103/mcL Normal 0.9 - 4.3 10^3/mcL AO Workflow SS Lymphocytes/100 WBC (Bld) 8.9 % Low 20.0 - 40.0 % AO Workflow SS MCH (RBC) [Entitic mass] 28.2 pg Normal 27.0 - 33.0 pg AO Workflow SS MCHC 33.2 G/dL Normal 32.0 - 36.0 G/dL AO Workflow SS MCV (RBC) [Entitic vol] 84.9 fL Normal 81.0 - 100.0 fL AO Workflow SS Monocytes (Bld) [#/Vol] 0.7 103/mcL Normal 0.1 - 1.4 10^3/mcL AO Workflow SS Monocytes/100 WBC (Bld) 5.6 % Normal 2.0 - 13.0 % AO Workflow SS Neutrophils (Bld) [#/Vol] 10.1 103/mcL High 2.3 - 8.1 10^3/mcL AO Workflow SS Neutrophils/100 WBC (Bld) 82.1 % High 50.0 - 75.0 % AO Workflow SS Platelet mean volume (Bld) [Entitic vol] 7.3 fL Normal 6.4 - 10.5 fL AO Workflow SS Platelets (Bld) [#/Vol] 294 103/mcL Normal 150 - 450 10^3/mcL AO Workflow SS Potassium [Moles/Vol] 4.0 mmol/L Normal 3.5 - 5.1 mmol/L AO ADM SS RBC (Bld) [#/Vol] 5.01 106/mcL Normal 4.50 - 6.0 0 10^6/mcL AO Workflow SS Sodium [Moles/Vol] 140 mmol/L Normal 136 - 145 mmol/L AO ADM SS Urea nitrogen [Mass/Vol] 20 mg/dL High 7 - 18 mg/dL AO ADM SS Urea nitrogen/Creatinine [Mass ratio] 22 ratio Normal 7 - 27 ratio AO ADM SS WBC (Bld) [#/Vol] 12.3 103/mcL High 4.5 - 10.8 10^3/mcL AO Workflow SS LABORATORYOrdered By: Zak Hunter on 12-11-2024 MRSA (PCR) Not Detected 1 (12/11/24 2:18 PM) Normal Not Detected AH Auto Viro/Sero SS Comment on above: Result Comment: [place] [id number] MRSA PCR Int See Below 2 *NA* (12/11/24 2:18 PM) Invalid Interpretation Code AH Auto Viro/Sero SS Comment on above: Result Comment: Clinical Interpretation: MRSA DNA not detected by Real-Time Polymerase Chain Reaction (PCR). A negative result may be due to intermittent colonization. Colonization may vary depending on patient treatment, patient status, or exposure to high-risk environments. As with all PCR based in vitro diagnostic tests, extremely low levels of target below the limit of detection of the assay may be detected, but results may not be reproducible. MRSAPCRon 12-11-2024 MRSA (PCR) Not detected Normal Not Detected [facility] Comment on above: Result Comment: [place] [id number] Performed By: #### A LB, ADIFF, ABOGEL, GFR, ANEU, CBC, ABSGEL, BMP #### [address] [place], [place] [address] MRSA PCR Int See Below Normal [facility] Comment on above: Result Comment: Clinical Interpretation: MRSA DNA not detected by Real-Time Polymerase Chain Reaction (PCR). A negative result may be due to intermittent colonization. Colonization may vary depending on patient treatment, patient status, or exposure to high-risk environments. As with all PCR based in vitro diagnostic tests, extremely low levels of target below the limit of detection of the assay may be detected, but results may not be reproducible. Performed By: #### A LB, ADIFF, ABOGEL, GFR, ANEU, CBC, ABSGEL, BMP #### [address] [place], [place] [address] Echo Complete W/ Contraston 10-07-2024 Echo Complete W/ Contrast [facility] [address] [place] [address] Echo Complete W/ Contrast 10/07/24 1357 MR#: [id number] Acct: [id number] Name: LISANDRO HYDE Rep #: [id number] : 1955 69 From: Néstor Lopez MD Attending Dr: Jennifer Thornton PA Status: REG CLI Ordering Dr: Jennifer Thornton PA Date: 09/21 11/14 Location: [facility] Sex: M C Admitted: Reason For Study Reason For Study: Murmur Procedure This was a 2D Doppler, Color Flow transthoracic echocardiogram. The study was technically difficult. Contrast injection was performed. Exam performed in department. Left Ventricle Normal LV size. Mild concentric left ventricular hypertrophy. The left ventricular ejection fraction is 55 %. No regional wall motion abnormalities noted. Right Ventricle Normal RV size. Normal systolic function. Mitral Valve Normal mitral valve. Tricuspid Valve Normal tricuspid valve. Mild (1+) tricuspid valve insufficiency. Pulmonary artery systolic pressure is 36 mmHg. Aortic Valve Trisinus/trileaflet aortic valve. Mild focal aortic valve calcification. Pulmonic Valve Normal pulmonic valve. Great Vessels Normal aortic root. The pulmonary artery is normal size. Inferior vena cava collapse with respiration. Pericardium/Pleural No pericardial effusion. Medication 22 gauge I.V. with prn adaptor inserted into left arm. Diluted definity 2ml given slow IV push to enhance endocardial definition. MMode/2D Measurements Calculations LVIDd: 4.9 cm IVSd: 1.4 cm LVOT diam: 2.3 cm LVIDs: 3.1 cm LVPWd: 1.3 cm LVOT area: 4.0 cm2 RVDd: 4.3 cm FS: 36.4 % Ao root diam: 3.9 cm LAV(MOD-bp): 59.5 ml LVAd ap4: 36.1 cm2 LAV(MOD-bp) Indexed: 29.1 ml/m2 LVLd ap4: 8.4 cm LAV(MOD-sp2): 58.3 ml EDV(MOD-sp4): 125.5 ml LAV(MOD-sp4): 57.7 ml EDV(sp4-el): 131.4 ml LVAs ap4: 20.2 cm2 LVLs ap4: 6.0 cm ESV(MOD-sp4): 54.8 ml ESV(sp4-el): 57.1 ml EF(MOD-sp4): 56.4 % EF(sp4-el): 56.5 % SV(MOD-sp4): 70.8 ml SV(sp4-el): 74.2 ml Ao sinus diam: 4.1 cm SI(MOD-sp4): 34.6 ml/m2 Ao ST Junction: 3.0 cm LA A4 area: 19.7 cm2 LA dimension(2D): 4.4 cm RA A4 area: 11.1 cm2 Time Measurements MV dec time: 0.23 sec Doppler Measurements Calculations MV E max felix: 97.4 cm/sec Lat Peak E' Felix: 10.5 cm/sec Med Peak E' Felix: 7.9 cm/sec MV A max felix: 76.2 cm/sec E/E' lat: 9.2 E/E' med: 12.4 MV E/A: 1.3 MV V2 max: 116.3 cm/sec MV P1/2t max felix: 114.7 cm/sec Ao V2 max: 208.4 cm/sec MV max P.4 mmHg MV P1/2t: 89.8 msec Ao max P.4 mmHg MV V2 mean: 65.6 cm/sec MV dec slope: 374.1 cm/sec2 Ao V2 mean: 139.5 cm/sec MV mean P.0 mmHg Ao mean P.9 mmHg MV V2 VTI: 38.9 cm MVA(P1/2t): 2.4 cm2 Ao V2 VTI: 35.9 cm MVA(VTI): 3.8 cm2 AV (velocity ratio): 1.0 DAYDAY(I,D): 4.1 cm2 DAYDAY(V,D): 3.6 cm2 LV V1 max: 186.4 cm/sec MR max felix: 487.5 cm/sec SV(LVOT): 146.6 ml LV V1 max P.9 mmHg MR max P.0 mmHg LV V1 mean P.4 mmHg LV V1 mean: 114.8 cm/sec LV V1 VTI: 36.5 cm PA V2 max: 105.5 cm/sec TR max felix: 282.4 cm/sec TR max P.9 mmHg ECHO/Echo Complete W/ Contrast Interpretation Summary Normal LV size. The left ventricular ejection fraction is 55 %. Mild concentric left ventricular hypertrophy. No regional wall motion abnormalities noted. Ordering Physician: Jennifer Thornton Referring Physician: Jennifer Thornton Performed By: Salvador Carey RCS 10/07/24 1750 Date Néstor Lopez MD CC: MADHAVI Johnson; WENDIE Lamar Date Dictated: 10/07/24 135 Date Transcribed: 10/07/241749 Seismograph Helper: Signed Normal [facility] Echocardiogram study reportO rdered By: Néstor Lopez on 10-07-2024 Study report [facility] [address] [place] [address] Echo Complete W/ Contrast 10/07/24 1357 MR#: [id number] Acct: [id number] Name: LISANDRO HYDE Rep #:[id number] : 1955 69 From: Néstor Gutierrez Attending Dr: WENDIE Lamar Status: REG CLI Ordering Dr: Jennifer Thornton Date: 10/07/24 Location: [facility] Sex: M C Admitted: Reason For Study Reason For Study: Murmur Procedure This was a 2D Doppler, Color Flow transthoracic echocardiogram. The study was technically difficult. Contrast injection was performed. Exam performed in department. Left Ventricle Normal LV size. Mild concentric left ventricular hypertrophy. The left ventricular ejection fraction is 55 %. No regional wall motion abnormalities noted. Right Ventricle Normal RV size. Normal systolic function. Mitral Valve Normal mitral valve. Tricuspid Valve Normal tricuspid valve. Mild (1+) tricuspid valve insufficiency. Pulmonary artery systolic pressure is 36 mmHg. Aortic Valve Trisinus/trileaflet aortic valve. Mild focal aortic valve calcification. Pulmonic Valve Normal pulmonic valve. Great Vessels Normal aortic root. The pulmonary artery is normal size. Inferior vena cava collapse with respiration. Pericardium/Pleural No pericardial effusion. Medication 22 gauge I.V. with prn adaptor inserted into left arm. Diluted definity 2ml given slow IV push to enhance endocardial definition. MMode/2D Measurements & Calculations LVIDd: 4.9 cm IVSd: 1.4 cm LVOT diam: 2.3 cm LVIDs: 3.1 cm LVPWd: 1.3 cm LVOT area: 4.0 cm2 RVDd: 4.3 cm FS: 36.4 % Ao root diam: 3.9 cm LAV(MOD-bp): 59.5 ml LVAd ap4: 36.1 cm2 LAV(MOD-bp) Indexed: 29.1 ml/m2 LVLd ap4: 8.4 cm LAV(MOD-sp2): 58.3 ml EDV(MOD-sp4): 125.5 ml LAV(MOD-sp4): 57.7 ml EDV(sp4-el): 131.4 ml LVAs ap4: 20.2 cm2 LVLs ap4: 6.0 cm ESV(MOD-sp4): 54.8 ml ESV(sp4-el): 57.1 ml EF(MOD-sp4): 56.4 % EF(sp4-el): 56.5 % SV(MOD-sp4): 70.8 ml SV(sp4-el): 74.2 ml Ao sinus diam: 4.1 cm SI(MOD-sp4): 34.6 ml/m2 Ao ST Junction: 3.0 cm LA A4 area: 19.7 cm2 LA dimension(2D): 4.4 cm RA A4 area: 11.1 cm2 Time Measurements MV dec time: 0.23 sec Doppler Measurements & Calculations MV E max felix: 97.4 cm/sec Lat Peak E' Felix: 10.5 cm/sec Med Peak E' Felix: 7.9 cm/sec MV A max felix: 76.2 cm/sec E/E' lat: 9.2 E/E' med: 12.4 MV E/A: 1.3 MV V2 max: 116.3 cm/sec MV P1/2t max felix: 114.7 cm/sec Ao V2 max: 208.4 cm/sec MV max P.4 mmHg MV P1/2t: 89.8 msec Ao max P.4 mmHg MV V2 mean: 65.6 cm/sec MV dec slope: 374.1 cm/sec2 Ao V2 mean: 139.5 cm/sec MV mean P.0 mmHg Ao mean P.9 mmHg MV V2 VTI: 38.9 cm MVA(P1/2t): 2.4 cm2 Ao V2 VTI: 35.9 cm MVA(VTI): 3.8 cm2 AV (velocity ratio): 1.0 DAYDAY(I,D): 4.1 cm2 DAYDAY(V,D): 3.6 cm2 LV V1 max: 186.4 cm/sec MR max felix: 487.5 cm/sec SV(LVOT): 146.6 ml LV V1 max P.9 mmHg MR max P.0 mmHg LV V1 mean P.4 mmHg LV V1 mean: 114.8 cm/sec LV V1 VTI: 36.5 cm PA V2 max: 105.5 cm/sec TR max felix: 282.4 cm/sec TR max P.9 mmHg ECHO/Echo Complete W/ Contrast Interpretation Summary Normal LV size. The left ventricular ejection fraction is 55 %. Mild concentric left ventricular hypertrophy. No regional wall motion abnormalities noted. Ordering Physician: Jennifer Thornton Referring Physician: Jennifer Thornton Performed By: Salvador Carey RCS 10/07/24 175 Date _ Néstor Lopez MD CC: MADHAVI Johnson; WENDIE Lamar ~ Date Dictated: 10/07/24 1357 Date Transcribed: 10/07/241749 Seismograph Helper: Signed [facility] Work Phone: Cardiology Visit Reporton Cardiology Visit Report [facility] [address] [place] [address] OFFICE VISIT Date of Service: 08/28/24 MR#: [id number] Acct: [id number] Name: LISANDRO HYDE Rep #: [id number] : 1955 Provider: WENDIE Nielson Age/Sex: 69/M Location[place] [facility] [place] Status: Signed HPI HPI History of Present Illness Details: This is a 69-year-old white male who presents today for outpatient cardiovascular follow-up visit. He has a history of coronary artery disease with CABG x 4 on 02/24/2022 at [facility], paroxysmal atrial fibrillation, hypertension, and hypercholesterolemia. From a cardiac standpoint, the patient is doing well. He denies any palpitations, chest pain, pressure or heaviness. He denies SOB, Orthopnea, and PND. He does not have bleeding issues; no blood in urine, stool or nosebleeds. He denies any decrease in energy level, myalgias, or claudication. He does not have edema, or sudden weight gain. He denies dizziness, lightheadedness, syncopal or near syncopal episodes, and headaches.He does not always take his Eliquis twice a day. He is concerned about bleedings. Intake Vital Signs 02/28/24 12:46 08/28/24 13:51 Height 5 ft 9 in 5 ft 9 in Weight: 189 lb 192 lb BMI 27.8 28.3 BP 121/76 H 128/77 H Blood Pressure Location Lt brachial Lt brachial Position Sitting Sitting Respiration 18 16 Pulse 52 L 59 L Pulse Source Monitor NIBP Pulse Oximetry (%) 97 Intake Visit Reasons: 6 M Rail Loader Required: No Is patient in pain?: No Allergies codeine Allergy (Mild, Verified 02/28/24 12:52) n/v Sulfa (Sulfonamide Antibiotics) Adverse Reaction (Mild, Verified 02/28/24 12:52) gi upset Medications ???Medication ???Instructions ???Recorded ???Confirmed ???Type sertraline 100 mg tablet 100 mg PO DAILY 01/17/22 08/28/24 History acetaminophen 325 mg tablet 650 mg PO Q4H PRN 02/28/22 5 History atorvastatin 40 mg tablet 40 mg PO QHS #90 tabs 05/25/2312/15 Rx hydrochlorothiazide 25 mg tablet 25 mg PO DAILY #90 tabs 05/25/23 0 08/28/24 Rx apixaban 5 mg tablet (Eliquis) 5 mg PO BID #60 TABLETS 04/09/24 0 08/28/24 Rx cholecalciferol (vitamin D3) 25 25 mcg PO QDAY 08/28/24 08/28/24 H istory mcg (1,000 unit) capsule coenzyme Q10 100 mg capsule 100 mg PO QDAY 08/28/24 08/28/24 H istory (CoQ-10) metoprolol succinate 25 mg 25 mg PO BID #180 tabs 08/28/24 Rx tablet,extended release 24 hr turmeric PO DAILY 08/28/24 History vitamin C PO DAILY 08/28/24 History Ejection fraction %: 65 Have you fallen in the past year?: No PFSH Medical History Paroxysmal A-fib Tachycardia CAD (coronary artery disease) Cardiac dysrhythmia History of left heart catheterization (LHC) ( 02/17/22) Atherosclerotic heart disease of [place] coronary artery without angina pectoris Angina pectoris Coronary artery calcification Cardiac murmur Pure hypercholesterolemia Chest pain GERD (gastroesophageal reflux disease) Essential hypertension HTN (hypertension) Hyperlipidemia bilateral shoulder surgery Surgical History History of coronary artery bypass surgery ( 02/24/22) History of shoulder replacement History of arthroplasty of left shoulder H/O sinus surgery Family History Mother Breast cancer Social History household members: spouse housing: house current occupational status: retired pets and animals: Yes Smoking Status: Never smoker alcohol intake: current alcohol intake frequency: holidays/special occasions only substance use type: former substance user and marijuana caffeine: Yes Type: coffee Number of servings: 3 what type of physical activity do you participate in: none do you feel safe at home: Yes ROS Const Const: Negative for fatigue or weakness Eyes Eyes: Negative for change in vision ENT ENT: Negative for dizziness or balance problems Cardio Chest Pain: No Palpitations: No Edema: None Resp Respiratory: Negative for SOB with activity, SOB at rest or SOB orthopnea SOB lying down GI GI: Negative nausea or heartburn Musc Musc: Negative for balance problems Neuro Neuro: Negative for dizziness, lightheadedness, near syncope, syncope or weakness Endo Endo: Negative for fatigue Cardiology Exam Const Appearance: cooperative, healthy appearing, comfortable, no acute distress, well developed and well groomed Nutritional Appearance: average body habitus and overweight Orientation: alert, awake and oriented x3 Head Head: normal to inspection, normocephalic and atraumatic Ears: hearing grossly normal bilaterally No (more content not included)... Normal [facility] CBC + DIFFon 07-22-2024 Baso # 0.02 x10EE3/UL Normal 0.00 - 0.10 [facility] Comment on above: Performed By: #### 2 54203 #### [facility],[address] [place] [address] 44793 Basophils/100 WBC (Bld) 0.3 % Normal 0.0 - 2.0 [facility] Comment on above: Performed By: #### 2 63852 #### [facility],[address] [place] [address] 51763 CBC + DIFF Normal [facility] Comment on above: Result Comment: CBC- COMPLETE BLOOD COUNT Performed By: #### 2 37002 #### [facility],[address] [place] [address] 88970 EO # 0.19 x10EE3/UL Normal 0.00 - 0.50 [facility] Comment on above: Performed By: #### 2 67699 #### [facility],[address] [place] [address] 84916 Eosinophils/100 WBC (Bld) 3.1 % Normal 0.0 - 7.0 [facility] Comment on above: Performed By: #### 2 02547 #### [facility],[address] [place] [address] 08799 Erythrocyte distribution width (RBC) [Ratio] 13.6 % Normal 12.0 - 15.6 [facility] Comment on above: Performed By: #### 2 55123 #### [facility],[address] [place] [address] Hematocrit (Bld) [Volume fraction] 41.0 % Normal 40.0 - 52.0 [facility] Comment on above: Performed By: #### 2 21877 #### [facility],[address] [place] [address] 77432 Hemoglobin (Bld) [Mass/Vol] 14.0 g/dL Normal 13.0 - 17.5 [facility] Comment on above: Performed By: #### 2 08207 #### [facility],[address] [place] [address] Lymph # 1.09 x10EE3/UL Normal 0.80 - 2.80 [facility] Comment on above: Performed By: #### 2 81249 #### [place] [address] Lymphocytes/100 WBC (Bld) 17.2 % Low 20.0 - 45.0 [facility] Comment on above: Performed By: #### 2 31848 #### [facility],[address] [place] [address] MANUAL DIFF N/A Normal [facility] Comment on above: Performed By: #### 2 87645 #### [place] [address] MCH (RBC) [Entitic mass] 30 pg Normal 27 - 33 [facility] Comment on above: Performed By: #### 2 30653 #### [place] [address] MCHC 34 X10 3 Normal 32 - 36 [facility] Comment on above: Performed By: #### 2 75798 #### [place] [address] MCV (RBC) [Entitic vol] 86 fL Normal 81 - 98 [facility] Comment on above: Performed By: #### 2 99697 #### [place] [address] Gilliam # 0.58 x10EE3/UL Normal 0.20 - 1.00 [facility] Comment on above: Performed By: #### 2 12446 #### [place] [address] MONOS % 9.1 % Normal 0.0 - 10.0 [facility] Comment on above: Performed By: #### 2 32957 #### [facility],[address] [place] [address] 25723 Morphology Louis (Bld) [Interp] N/A Normal [facility] Comment on above: Performed By: #### 2 37545 #### [facility],[address] [place] [address] Neut # 4.47 x10EE3/UL Normal 1.50 - 7.10 [facility] Comment on above: Performed By: #### 2 80118 #### [facility],[address] [place] [address] Neutrophils/100 WBC (Bld) 70.4 % Normal 46.0 - 76.0 [facility] Comment on above: Performed By: #### 2 60660 #### [facility],[address] [place] [address] PLATELET 235 x10EE3/UL Normal 150 - 450 [facility] Comment on above: Performed By: #### 2 69963 #### [facility],[address] [place] [address] Platelet mean volume (Bld) [Entitic vol] 7.7 fL Normal 6.4 - 10.5 [facility] Comment on above: Result Comment: AUTO MATED DIFFERENTIAL Performed By: #### 2 46165 #### [facility],[address] [place], [place] [address] RBC 4.74 x 10EE6/UL Normal 4.50 - 6.00 [facility] Comment on above: Performed By: #### 2 83095 #### [place] [id number] WBC 6.4 x 10EE3/UL Normal 4.5 - 10.8 [facility] Comment on above: Performed By: #### 2 52907 #### [facility],[address] [place] [address] CMP with eGFRon 07-22-2024 AGE 69 years Normal [facility] Comment on above: Performed By: #### 2 16296 #### [facility],[address] [place] [address] 67404 Albumin [Mass/Vol] 3.9 g/dL Normal 3.4 - 5.0 [facility] Comment on above: Performed By: #### 2 66119 #### [facility],[address] [place], [place] [address] Albumin/Globulin [Mass ratio] 1.4 {ratio} Normal 0.9 - 1.6 [facility] Comment on above: Performed By: #### 2 44841 #### [facility],[address] [place] [address] 13052 ALK PHOS 84 U/L Normal 46 - 116 [facility] Comment on above: Performed By: #### 2 50339 #### [facility],[address] [place] [address] 49648 ALT [Catalytic activity/Vol] 22 U/L Normal 16 - 63 [facility] Comment on above: Performed By: #### 2 83660 #### [facility],[address] [place] [address] 97334 Anion gap [Moles/Vol] 10 mmol/L Normal 10 - 20 [facility] Comment on above: Performed By: #### 2 17150 #### [facility],[address] [place] [address] 16915 AST [Catalytic activity/Vol] 21 U/L Normal 15 - 37 [facility] Comment on above: Performed By: #### 2 55980 #### [facility],[address] [place] [address] 70760 B/C RATIO 29 ratio Normal 0 - 30 [facility] Comment on above: Performed By: #### 2 94447 #### [facility],[address] [place] [address] 80981 Bilirubin [Mass/Vol] 0.7 mg/dL Normal 0.2 - 1.0 [facility] Comment on above: Performed By: #### 2 11605 #### [facility],[address] [place] [address] 55287 Calcium [Mass/Vol] 8.8 mg/dL Normal 8.5 - 10.1 [facility] Comment on above: Performed By: #### 2 54126 #### [facility],[address] [place] [address] 00834 Chloride [Moles/Vol] 106 mmol/L Normal 98 - 107 [facility] Comment on above: Performed By: #### 2 70057 #### [facility],[address] [place] [address] 91909 CMP with eGFR Normal [facility] Comment on above: Result Comment: COMP REHENSIVE METABOLIC PANEL Performed By: #### 2 80874 #### [facility],[address] [place] [address] 99403 CO2 [Moles/Vol] 29.1 mmol/L Normal 21.0 - 32.0 [facility] Comment on above: Performed By: #### 2 81536 #### [facility],[address] [place] [address] 27250 Creatinine [Mass/Vol] 0.73 mg/dL Normal 0.70 - 1.30 [facility] Comment on above: Performed By: #### 2 72949 #### [facility],[address] [place] [address] 60359 GFR/1.73 sq M.predicted among non-blacks MDRD (S/P/Bld) [Vol rate/Area] mL/min/{1.73_m2} Normal 60 - 999 [facility] Comment on above: Performed By: #### 2 26598 #### [facility],[address] [place] [address] 74662 Result Comment: ACCO RDING TO THE NATIONAL KIDNEY DISEASE EDUCATION PROGRAM(NKDE), A NORMAL eGFR IS A VALUE GREATER THAN OR EQUAL TO 60 ML/MIN/1.73 SQ METERS. CHRONIC KIDNEY DISEASE: <60mL/MIN/1.73 SQ METERS KIDNEY FAILURE: <15mL/MIN/1.73 SQ METERS THIS TEST SHOULD ONLY BE USED FOR PATIENTS 18 YEARS OF AGE AND OLDER. Globulin (S) [Mass/Vol] 2.8 g/dL Normal 1.5 - 3.8 [facility] Comment on above: Performed By: #### 2 17720 #### [facility],[address] [place] [address] 29278 Glucose [Mass/Vol] 89 mg/dL Normal 74 - 106 [facility] Comment on above: Performed By: #### 2 11261 #### [facility],[address] [place] [address] 99591 Potassium [Moles/Vol] 4.2 mmol/L Normal 3.5 - 5.1 [facility] Comment on above: Performed By: #### 2 88978 #### [facility],[address] [place] [address] 19932 Protein [Mass/Vol] 6.7 g/dL Normal 6.4 - 8.2 [facility] Comment on above: Performed By: #### 2 25497 #### [facility],[address] [place] [address] 15121 Sodium [Moles/Vol] 141 mmol/L Normal 136 - 145 [facility] Comment on above: Performed By: #### 2 37550 #### [facility],[address] [place] [address] 33899 Urea nitrogen [Mass/Vol] 21 mg/dL High 7 - 18 [facility] Comment on above: Performed By: #### 2 73652 #### [facility],[address] [place] [address] 99933 LIPID PROFILEon 07-22-2024 Cholesterol [Mass/Vol] 136 mg/dL Normal 0 - 240 [facility] Comment on above: Performed By: #### 2 88503 #### [facility],[address] [place] [address] 03419 Cholesterol in HDL [Mass/Vol] 55 mg/dL Normal 40 - 60 [facility] Comment on above: Performed By: #### 2 26879 #### [facility],[address] [place] [address] 52782 Cholesterol in LDL [Mass/Vol] 65 mg/dL Normal 0 - 129 [facility] Comment on above: Performed By: #### 2 56915 #### [facility],[address] [place] [address] 03306 Cholesterol.total/Ch olesterol in HDL [Mass ratio] 2.5 {ratio} Normal 0.0 - 5.0 [facility] Comment on above: Performed By: #### 2 20508 #### [facility],[address] [place] [address] 19015 Lipid 1996 panel Normal [facility] Comment on above: Result Comment: LIPI D PROFILE Performed By: #### 2 93047 #### [facility],[address] [place] [address] 48145 Triglyceride [Mass/Vol] 79 mg/dL Normal 0 - 150 [facility] Comment on above: Performed By: #### 2 06225 #### [facility],[address] [place] [address] 64610 Cardiology Visit Reporton Cardiology Visit Report [facility] [address] [place] [address]. [address] [place] [id number] OFFICE VISIT Date of Service: 02/28/24 MR#: [id number] Acct: [id number] Name: LISANDRO HYDE Robbie Rep #: [id number] : 1955 Provider: MADHAVI samson Age/Sex: 69/M [place] [facility] [place] Status: Signed HPI HPI History of Present Illness Details: This is a 69-year-old white male who presents today for outpatient cardiovascular follow-up visit. He has a history of coronary artery disease with CABG x 4 on 02/24/2022 at [facility], paroxysmal atrial fibrillation, hypertension, and hypercholesterolemia. From a cardiac standpoint, the patient is doing well. He denies any palpitations, chest pain, pressure or heaviness. He denies SOB, Orthopnea, and PND. He does not have bleeding issues; no blood in urine, stool or nosebleeds. He denies any decrease in energy level, myalgias, or claudication. He does not have edema, or sudden weight gain. He denies dizziness, lightheadedness, syncopal or near syncopal episodes, and headaches. 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 Is patient in pain?: No Allergies codeine Allergy (Mild, Verified 02/28/24 12:52) n/v Sulfa (Sulfonamide Antibiotics) Adverse Reaction (Mild, Verified 02/28/24 12:52) gi upset Medications ???Medication ???Instructions ???Recorded ???Confirmed ???Type sertraline 100 mg tablet 100 mg PO DAILY 01/17/22 02/28/24 History acetaminophen 325 mg tablet 650 mg PO Q4H PRN 02/28/22 02/28/24 History apixaban 5 mg tablet (Eliquis) 5 mg PO BID #180 tabs 05/25/23 02/28/24 Rx atorvastatin 40 mg tablet 40 mg PO QHS #90 tabs 05/25/23 02/28/24 Rx hydrochlorothiazide 25 mg tablet 25 mg PO DAILY #90 tabs 05/25/23 02/28/24 Rx metoprolol succinate 50 mg 25 mg (1/2 x 50 mg) PO BID #45 tabs 02/28/24 02/28/24 Rx tablet,extended release 24 hr Have you fallen in the past year?: Yes PFSH Medical History Paroxysmal A-fib Tachycardia CAD (coronary artery disease) Cardiac dysrhythmia History of left heart catheterization (LHC) ( 02/17/22) Atherosclerotic heart disease of [place] coronary artery without angina pectoris Angina pectoris Coronary artery calcification Cardiac murmur Pure hypercholesterolemia Chest pain GERD (gastroesophageal reflux disease) Essential hypertension HTN (hypertension) Hyperlipidemia bilateral shoulder surgery Surgical History History of coronary artery bypass surgery ( 02/24/22) History of shoulder replacement History of arthroplasty of left shoulder H/O sinus surgery Family History Mother Breast cancer Social History household members: spouse housing: house current occupational status: retired pets and animals: Yes Smoking Status: Never smoker alcohol intake: current alcohol intake frequency: holidays/special occasions only substance use type: former substance user and marijuana caffeine: Yes Type: coffee Number of servings: 3 what type of physical activity do you participate in: none do you feel safe at home: Yes ROS Const Const: Negative for fatigue, weakness, fever(s), headache(s), chills, frequent falls, weight gain or weight loss Eyes Eyes: Negative for blind spots, loss of peripheral vision, transient loss of vision, blurry vision, change in vision, double vision, floaters or tunnel vision ENT ENT: Negative for headache(s), dizziness, Nosebleed/epistaxis, balance problems or neck pain Cardio Chest Pain: No Palpitations: No Edema: None Muscle aches with walking: None Resp Respiratory: Negative for SOB with activity, SOB at rest or SOB orthopnea SOB lying down GI GI: Negative nausea, vomiting, heartburn, bloating, vomiting blood/hematemesis, bright, red blood in stools or black,tarry stools Musc Musc: Negative for muscle aches/ myalgia, muscle weakness, joint pain or balance problems Neuro Neuro: Negative for dizziness, lightheadedness, near syncope, syncope, orthostatic symptoms, frequent falls, headache(s), weakness, blurry vision or double vision [place] Hematologic/Lymphatic: Negative for easy bleeding or easy bruising Endo Endo: Negative for fatigue Cardiology Exam Const Appearance: cooperative, healthy appearing, comfortable, no acute distress, well developed and well groomed Nutritional Appearance: average body habitus and over (more content not included)... Normal [facility] CBC + DIFFon 2024 Baso # 0.03 x10EE3/UL Normal 0.00 - 0.10 [facility] Comment on above: Performed By: #### 2 57343 #### [facility],[address] [place] [address] 18640 Basophils/100 WBC (Bld) 0.5 % Normal 0.0 - 2.0 [facility] Comment on above: Performed By: #### 2 07147 #### [facility],[address] [place] [address] 93393 CBC + DIFF Normal [facility] Comment on above: Result Comment: CBC- COMPLETE BLOOD COUNT Performed By: #### 2 03723 #### [facility],[address] [place] [address] 31615 EO # 0.24 x10EE3/UL Normal 0.00 - 0.50 [facility] Comment on above: Performed By: #### 2 80421 #### [facility],[address] [place] [address] 51019 Eosinophils/100 WBC (Bld) 3.9 % Normal 0.0 - 7.0 [facility] Comment on above: Performed By: #### 2 26997 #### [facility],[address] [place] [address] 80231 Erythrocyte distribution width (RBC) [Ratio] 14.2 % Normal 12.0 - 15.6 [facility] Comment on above: Performed By: #### 2 26290 #### [facility],[address] [place] [address] 24886 Hematocrit (Bld) [Volume fraction] 42.8 % Normal 40.0 - 52.0 [facility] Comment on above: Performed By: #### 2 66371 #### [facility],[address] [place] [address] 90974 Hemoglobin (Bld) [Mass/Vol] 14.8 g/dL Normal 13.0 - 17.5 [facility] Comment on above: Performed By: #### 2 93004 #### [facility],[address] [place] [address] Lymph # 1.00 x10EE3/UL Normal 0.80 - 2.80 [facility] Comment on above: Performed By: #### 2 96873 #### [facility],[address] [place] [address] Lymphocytes/100 WBC (Bld) 16.0 % Low 20.0 - 45.0 [facility] Comment on above: Performed By: #### 2 21774 #### [facility],[address] [place] [address] MANUAL DIFF N/A Normal [facility] Comment on above: Performed By: #### 2 73323 #### [facility],[address] [place] [address] MCH (RBC) [Entitic mass] 30 pg Normal 27 - 33 [facility] Comment on above: Performed By: #### 2 83304 #### [place] [address] MCHC 35 X10 3 Normal 32 - 36 [facility] Comment on above: Performed By: #### 2 16100 #### [facility],[address] [place] [address] MCV (RBC) [Entitic vol] 86 fL Normal 81 - 98 [facility] Comment on above: Performed By: #### 2 04135 #### [place] [address] Gilliam # 0.62 x10EE3/UL Normal 0.20 - 1.00 [facility] Comment on above: Performed By: #### 2 71757 #### [facility],[address] [place] [address] MONOS % 9.9 % Normal 0.0 - 10.0 [facility] Comment on above: Performed By: #### 2 52423 #### [facility],[address] [place] [address] 47547 Morphology Louis (Bld) [Interp] N/A Normal [facility] Comment on above: Performed By: #### 2 36133 #### [facility],[address] [place] [address] 27924 Neut # 4.37 x10EE3/UL Normal 1.50 - 7.10 [facility] Comment on above: Performed By: #### 2 44544 #### [facility],[address] [place] [address] Neutrophils/100 WBC (Bld) 69.8 % Normal 46.0 - 76.0 [facility] Comment on above: Performed By: #### 2 14326 #### [facility],[address] [place] [address] PLATELET 245 x10EE3/UL Normal 150 - 450 [facility] Comment on above: Performed By: #### 2 25553 #### [facility],[address] [place] [address] Platelet mean volume (Bld) [Entitic vol] 7.6 fL Normal 6.4 - 10.5 [facility] Comment on above: Result Comment: AUTO MATED DIFFERENTIAL Performed By: #### 2 98165 #### [facility],[address] [place] [address] 53639 RBC 4.98 x 10EE6/UL Normal 4.50 - 6.00 [facility] Comment on above: Performed By: #### 2 98428 #### [facility],[address] [place] [address] 86108 WBC 6.3 x 10EE3/UL Normal 4.5 - 10.8 [facility] Comment on above: Performed By: #### 2 31265 #### [facility],[address] [place], [place] [id number] CMP with eGFRon 2024 AGE 68 years Normal [facility] Comment on above: Performed By: #### 2 68787 #### [facility],[address] [place] [address] 37558 Albumin [Mass/Vol] 4.0 g/dL Normal 3.4 - 5.0 [facility] Comment on above: Performed By: #### 2 82757 #### [facility],[address] [place] [address] 49880 Albumin/Globulin [Mass ratio] 1.2 {ratio} Normal 0.9 - 1.6 [facility] Comment on above: Performed By: #### 2 [id number] #### [facility],[address] [place] [address] 02837 ALK PHOS 89 U/L Normal 46 - 116 [facility] Comment on above: Performed By: #### 2 08437 #### [facility],[address] [place] [address] 45010 ALT [Catalytic activity/Vol] 32 U/L Normal 16 - 63 [facility] Comment on above: Performed By: #### 2 72507 #### [facility],[address] [place] [address] 31867 Anion gap [Moles/Vol] 13 mmol/L Normal 10 - 20 [facility] Comment on above: Performed By: #### 2 77008 #### [facility],[address] [place] [address] 77815 AST [Catalytic activity/Vol] 27 U/L Normal 15 - 37 [facility] Comment on above: Performed By: #### 2 33324 #### [facility],[address] [place] [address] 75412 B/C RATIO 23 ratio Normal 0 - 30 [facility] Comment on above: Performed By: #### 2 75749 #### [facility],[address] [place] [address] 72962 Bilirubin [Mass/Vol] 0.4 mg/dL Normal 0.2 - 1.0 [facility] Comment on above: Performed By: #### 2 47578 #### [facility],[address] [place] [address] 03882 Calcium [Mass/Vol] 9.1 mg/dL Normal 8.5 - 10.1 [facility] Comment on above: Performed By: #### 2 61955 #### [facility],[address] [place] [address] 86922 Chloride [Moles/Vol] 106 mmol/L Normal 98 - 107 [facility] Comment on above: Performed By: #### 2 43269 #### [facility],[address] [place] [address] 21473 CMP with eGFR Normal [facility] Comment on above: Result Comment: COMP REHENSIVE METABOLIC PANEL Performed By: #### 2 96598 #### [facility],[address] [place] [address] 02064 CO2 [Moles/Vol] 27.3 mmol/L Normal 21.0 - 32.0 [facility] Comment on above: Performed By: #### 2 48067 #### [facility],[address] [place] [address] 91470 Creatinine [Mass/Vol] 0.86 mg/dL Normal 0.70 - 1.30 [facility] Comment on above: Performed By: #### 2 45739 #### [facility],[address] [place] [address] 22740 GFR/1.73 sq M.predicted among non-blacks MDRD (S/P/Bld) [Vol rate/Area] mL/min/{1.73_m2} Normal 60 - 999 [facility] Comment on above: Performed By: #### 2 47820 #### [facility],[address] [place] [address] 21917 Result Comment: ACCO RDING TO THE NATIONAL KIDNEY DISEASE EDUCATION PROGRAM(NKDE), A NORMAL eGFR IS A VALUE GREATER THAN OR EQUAL TO 60 ML/MIN/1.73 SQ METERS. CHRONIC KIDNEY DISEASE: <60mL/MIN/1.73 SQ METERS KIDNEY FAILURE: <15mL/MIN/1.73 SQ METERS THIS TEST SHOULD ONLY BE USED FOR PATIENTS 18 YEARS OF AGE AND OLDER. Globulin (S) [Mass/Vol] 3.4 g/dL Normal 1.5 - 3.8 [facility] Comment on above: Performed By: #### 2 86747 #### [facility],[address] [place] [address] 36104 Glucose [Mass/Vol] 94 mg/dL Normal 74 - 106 [facility] Comment on above: Performed By: #### 2 90804 #### [facility],[address] [place] [address] 97588 Potassium [Moles/Vol] 4.2 mmol/L Normal 3.5 - 5.1 [facility] Comment on above: Performed By: #### 2 90330 #### [facility],[address] [place] [address] 04349 Protein [Mass/Vol] 7.4 g/dL Normal 6.4 - 8.2 [facility] Comment on above: Performed By: #### 2 72224 #### [facility],[address] [place] [address] 24250 Sodium [Moles/Vol] 142 mmol/L Normal 136 - 145 [facility] Comment on above: Performed By: #### 2 16116 #### [facility],[address] [place] [address] 91280 Urea nitrogen [Mass/Vol] 20 mg/dL High 7 - 18 [facility] Comment on above: Performed By: #### 2 65728 #### [facility],[address] [place] [address] 55160 LIPID PROFILEon 2024 Cholesterol [Mass/Vol] 134 mg/dL Normal 0 - 240 [facility] Comment on above: Performed By: #### 2 19525 #### [facility],[address] [place] [address] 56978 Cholesterol in HDL [Mass/Vol] 53 mg/dL Normal 40 - 60 [facility] Comment on above: Performed By: #### 2 92359 #### [facility],[address] [place] [address] 73980 Cholesterol in LDL [Mass/Vol] 67 mg/dL Normal 0 - 129 [facility] Comment on above: Performed By: #### 2 86607 #### [facility],[address] [place] [address] 39122 Cholesterol.total/Ch olesterol in HDL [Mass ratio] 2.5 {ratio} Normal 0.0 - 5.0 [facility] Comment on above: Performed By: #### 2 48251 #### [facility],[address] [place] [address] 13752 Lipid 1996 panel Normal [facility] Comment on above: Result Comment: LIPI D PROFILE Performed By: #### 2 70301 #### [facility],[address] [place] [address] 43653 Triglyceride [Mass/Vol] 69 mg/dL Normal 0 - 150 [facility] Comment on above: Performed By: #### 2 21542 #### [facility],[address] [place] [address] 53000 XR KNEE RIGHT 3 VIEWSon 08-0 XR KNEE RIGHT 3 VIEWS Interpreted By: Charu Swann, STUDY: Right knee, 3 views. INDICATION: Signs/Symptoms:RIGHT KNEE PAIN COMPARISON: None. ACCESSION NUMBER(S): [id number] ORDERING CLINICIAN: MERCEDES MATUTE FINDINGS: No acute fracture or malalignment. Severe medial compartment osteoarthrosis with joint space loss and osteophytes. Mild lateral and patellofemoral compartment osteoarthrosis with osteophytes. No significant knee joint effusion. Posterior/medial calf surgical clips. Mild nonspecific prepatellar soft tissue edema. IMPRESSION: 1. Severe medial and mild lateral/patellofemoral compartment osteoarthrosis of the right knee radiographs. MACRO: None. Signed by: Charu Swann 11/23/2023 7:03 PM Dictation workstation: [id number] [facility] B. burgdorferi IgG and IgM p aletha (S)on 10-30-2023 B. burgdorferi IgG+IgM Qn (S) Negative Normal Negative [facility] Comment on above: Order Comment: Speci men Type: BLOOD SPECIMEN Ordering Facility: [facility] Address: [address] [place] [address] Result Comment: Rece nt infection with B. burgdorferi sensu lato cannot be excluded if the specimen collected within four weeks after the onset of signs and symptoms or within six weeks after a known tick exposure. Clinical and epidemiological correlation is required. Performed By: #### 3 4942-3 #### [facility] CLIA [id number] [address] [place] [address] [place] KNEE 3 VIEWSon 07-10-2022 KNEE 3 VIEWS Patient Name: LISANDRO HYDE STUDY: Left knee 3 views. INDICATION: PAIN IN LEFT KNEE. COMPARISON: None. ACCESSION NUMBER(S): [id number] ORDERING CLINICIAN: GABRIELA CORNOY FINDINGS: No acute fracture or malalignment. Mild tricompartmental degenerative changes with small osteophytes and relatively preserved joint spaces. No significant knee joint effusion. Soft tissues are unremarkable. Surgical clips in the soft tissues of the posterior distal thigh. IMPRESSION: 1. Mild tricompartmental osteoarthrosis of the left knee. Electronically signed by: CHARU SWANN MD [facility] percentageon 2021 Chloride [Moles/Vol] 106 mmol/L 98-107 [facility] Work Phone: Glucose [Mass/Vol] 104 mg/dL 74-106 [facility] Work Phone: Comment on above: Fasting Glucose resu lt from 100 to 125 mg/dL suggests IMPAIRED HOMEOSTASIS per A.D.A. criteria. Potassium [Moles/Vol] 4.2 mmol/L 3.5-5.1 [facility] Work Phone: Sodium [Moles/Vol] 137 mmol/L 136-145 [facility] Work Phone: Laboratory - Chemistry and C hemistry - challengeon 02-20-2022 CO2 [Moles/Vol] 25.0 mmol/L 21.0-32.0 [facility] Work Phone: Urea nitrogen/Creatinine [Mass ratio] 26.0 mg/mg 10- [facility] Work Phone: Laboratory - Coagulationon 1 aPTT Coag (Bld) [Time] 59.0 s 24.1-36.2 [facility] Work Phone: No Panel Informationon 02-20 Estimated Creatinine Clearance Calc 90.12 ml/min [facility] Work Phone: Estimated GFR (MDRD) Amer 122 mL/min >60 [facility] Work Phone: Comment on above: GFR Calc Estimated GFR (MDRD) Non-Af Amer 101 mL/min >60 [facility] Work Phone: Comment on above: Non- GFR Calc Serum or plasma calcium nurys urement (mass/volume)on 02-20-2022 Calcium [Mass/Vol] 9.4 mg/dL 8.5-10.1 [facility] Work Phone: Serum or plasma creatinine m easurement (mass/volume)on 02-20-2022 Creatinine [Mass/Vol] 0.81 mg/dL 0.70-1.30 [facility] Work Phone: Comment on above: The validity of the calculated GFR & GFRAA in patients over 70 years has not been determined. Clinical correlation is essential. Serum or plasma urea nitroge n measurement (mass/volume)on 02-20-2022 Urea nitrogen [Mass/Vol] 21 mg/dL 7-18 [facility] Work Phone: Thin prep Papanicolaou smear with manual screeningon 02-20-2022 Thin prep Papanicolaou smear with manual screening 6 5-15 [facility] Work Phone: Absolute lymphocyte counton 02-18-2022 Lymphocytes Auto (Unsp spec) [#/Vol] 1.64 10*3/uL 0.83-4.51 [facility] Work Phone: Basophil percentageon 2021 Basophils/100 WBC (Bld) 0.5 % 0-1 [facility] Work Phone: [phone] Eosinophils/100 WBC (Bld) 3.4 % 0-5 [facility] Work Phone: [phone] Neutrophils (Bld) [#/Vol] 4.6 10*3/uL 2.0-7.7 [facility] Work Phone: [phone] Neutrophils/100 WBC (Bld) 62.8 % 47-70 [facility] Work Phone: [phone] WBC (Bld) [#/Vol] 7.3 10*3/uL 4.4-11.0 [facility] Work Phone: Blood erythrocytes count (nu mber/volume)on 02-18-2022 RBC (Bld) [#/Vol] 4.87 10*6/uL 4.6-6.2 [facility] Work [facility]: Blood hemoglobin measurement (mass/volume)on 02-18-2022 Hemoglobin (Bld) [Mass/Vol] 14.3 g/dL 13.0-16.5 [facility] Work Phone: [phone] Blood lymphocytes/100 leukoc yteson 02-18-2022 Lymphocytes/100 WBC (Bld) 22.4 % 19-41 [facility] Work Phone: Blood monocytes/100 leukocyt eson 02-18-2022 Monocytes/100 WBC (Bld) 10.6 % 0-10 [facility] Work Phone: [phone] Blood platelet mean volumeon 02-18-2022 Platelet mean volume (Bld) [Entitic vol] 9.5 fL 6.2-12.0 [facility] Work Phone: Determination of erythrocyte mean corpuscular volume (MCV)on 02-18-2022 MCV (RBC) [Entitic vol] 89.9 fL 80-94 [facility] Work Phone: Hematocrit Auto (Bld) [Volum e fraction]on 02-18-2022 Hematocrit (Bld) [Volume fraction] 43.8 % 40-54 [facility] Work Phone: Laboratory - Hematology and Cell countson 02-18-2022 Erythrocyte distribution width (RBC) [Entitic vol] 43.6 fL 35.1-43.9 [facility] Work Phone: Erythrocyte distribution width (RBC) [Ratio] 13.2 % 11.6-14.6 [facility] Work Phone: Immature granulocytes/100 WBC (Bld) 0.300 % 0.0-0.9 [facility] Work Phone: Comment on above: IG% - Immature Granu locytes (promyelocytes, myelocytes and metamyelocytes) > 1% indicates that a LEFT SHIFT is Present. MCH (RBC) [Entitic mass] 29.4 pg 27.0-32.0 [facility] Work Phone: Nucleated RBC/100 WBC (Bld) [Ratio] 0 % 0-5 [facility] Work Phone: MCHC Auto (RBC) [Mass/Vol]on 02-18-2022 MCHC (RBC) [Mass/Vol] 32.6 g/dL 32-36 [facility] Work Phone: Platelets bldon 02-18-2022 Platelets (Bld) [#/Vol] 230 10*3/uL 150-450 [facility] Work Phone: INR in Blood by Coagulation assayon 02-17-2022 INR Coag (Bld) [Relative time] 1.1 {INR} [facility] Work Phone: Laboratory - Coagulationon 1 PT Coag (PPP) [Time] 13.5 s 11.7-14.9 [facility] Work Phone: D-DIMER, NON VTEon 1 D-DIMER, NON VTE 791 ng/mL FEU Abnormal = 500 [facility] Comment on above: Order Comment: Call not indicated, 02/01/2021 19:26 Result Comment: THE D-DIMER ASSAY IS REPORTED IN NG/ML FIBRINOGEN EQUIVALENT UNITS (FEU). THE RESULTS OF THIS ASSAY SHOULD NOT BE USED FOR THE EXCLUSION OF DEEP VEIN THROMBOSIS AND/OR PULMONARY EMBOLISM. Call not indicated, 02/01/2021 19:26 Performed By: #### D DEBORAH #### [address] [address] TROPONIN Ion 01-31-2021 Troponin I.cardiac [Mass/Vol] 0.02 ng/mL Normal 0.00 - 0.03 [facility] Comment on above: Order Comment: Call not indicated, 02/01/2021 19:26 Result Comment: LESS THAN 0.04 NG/ML: NEGATIVE REPEAT TESTING IN THREE TO SIX HOURS IF CLINICALLY INDICATED. 0.04 - 0.5 NG/ML: CONSISTENT WITH POSSIBLE CARDIAC DAMAGE AND POSSIBLE INCREASED CLINICAL RISK. SERIAL MEASUREMENTS MAY HELP ASSESS EXTENT OF MYOCARDIAL DAMAGE. >0.5 NG/ML: CONSISTENT WITH CARDIAC DAMAGE, INCREASED CLINICAL RISK AND MYOCARDIAL INFARCTION. SERIAL MEASUREMENTS MAY HELP ASSESS EXTENT OF MYOCARDIAL DAMAGE. . Note: Troponin I testing is performed using different testing methodology at [facility] than at other [facility]. Direct result comparisons should only be made within the same method. Call not indicated, 02/01/2021 19:26 Performed By: #### T ROP2 #### [address] [address] .Auto Diffon 06-04-2019 Ammonia (P) [Mass/Vol] 1.30 10 3/mcL High 0.15-1.00 [facility] ([place]) Comment on above: Performed By: #### C BC, ADIFF, ANEU #### [facility] [address] [place], [place] [address] #### BMP, GFR #### [address] [address] Basophils (Bld) [#/Vol] 0.00 10 3/mcL Normal 0.00-0.19 [facility] ([place]) Comment on above: Performed By: #### C BEBETO, ADIFF, ANEU #### [address] [address] #### BMP, GFR #### [address] [address] Basophils/100 WBC (Bld) 0.3 % Normal 0.0-2.5 [facility] ([place]) Comment on above: Performed By: #### C BC, ADIFF, ANEU #### [address] [address] #### BMP, GFR #### [address] [address] Eosinophils (Bld) [#/Vol] 0.00 10 3/mcL Normal 0.00-0.40 [facility] ([place]) Comment on above: Performed By: #### C BEBETO, ADIFF, ANEU #### [address] [address] #### BMP, GFR #### [address] [address] Eosinophils/100 WBC (Bld) 0.0 % Normal 0.0-7.0 [facility] ([place]) Comment on above: Performed By: #### C ANASTASIA TATE, ANEU #### [place] [address] #### BMP, GFR #### [address] [address] Lymphocytes (Bld) [#/Vol] 0.70 10 3/mcL Low 0.77-3.85 [facility] ([place]) Comment on above: Performed By: #### C BC, ADIFF, ANEU #### [address] [address] #### BMP, GFR #### [address] [address] Lymphocytes/100 WBC (Bld) 4.1 % Low 10.0-50.0 [facility] ([place]) Comment on above: Performed By: #### C BC, ADIFF, ANEU #### [address] [address] #### BMP, GFR #### [address] [address] Monocytes/100 WBC (Bld) 7.9 % Normal 1.7-13.0 [facility] ([place]) Comment on above: Performed By: #### C BC, ADIFF, ANEU #### [address] [address] #### BMP, GFR #### [facility] [address] [place] [address] Neutrophils/100 WBC (Bld) 87.7 % High 37.0-80.0 [facility] ([place]) Comment on above: Performed By: #### C BC, ADIFF, ANEU #### [address] [address] #### BMP, GFR #### [address] [address] .GFRon 06-04-2019 GFR Non- 87 ml/min/1.73sqm Normal [facility] ([place]) Comment on above: Result Comment: GFR Population mean for , Non- Americans Ages 20-29 = 116 mL/min/1.73 sq.m. Ages 30-39 = 107 mL/min/1.73 sq.m. Ages 40-49 = 99 mL/min/1.73 sq.m. Ages 50-59 = 93 mL/min/1.73 sq.m. Ages 60-69 = 85 mL/min/1.73 sq.m. Ages 70+ = 75 mL/min/1.73 sq.m. Chronic Kidney Disease: Less than 60 mL/min/1.73 square meters End Stage Renal Disease: Less than 15 mL/min/1.73 square meters Performed By: #### C BC, ADIFF, ANEU #### [address] [address] GFR 105 ml/min/1.73sqm Normal [facility] ([place]) Comment on above: Result Comment: GFR Population mean for , Non- Americans Ages 20-29 = 116 mL/min/1.73 sq.m. Ages 30-39 = 107 mL/min/1.73 sq.m. Ages 40-49 = 99 mL/min/1.73 sq.m. Ages 50-59 = 93 mL/min/1.73 sq.m. Ages 60-69 = 85 mL/min/1.73 sq.m. Ages 70+ = 75 mL/min/1.73 sq.m. Chronic Kidney Disease: Less than 60 mL/min/1.73 square meters End Stage Renal Disease: Less than 15 mL/min/1.73 square meters Performed By: #### ANASTASIA HUERTA ANEU #### [place] [address] [address] .NEUABSon 06-04-2019 Neutrophils (Bld) [#/Vol] 14.40 10 3/mcL High 2.85-6.16 [facility] ([place]) Comment on above: Performed By: #### ANASTASIA HUERTA, ANEU #### [address] [address] #### BMP, GFR #### [place] [address] BMPon 06-04-2019 Calcium [Mass/Vol] 8.7 mg/dL Normal 8.4-10.2 [facility] ([place]) Comment on above: Performed By: #### ANASTASIA HUERTA, ANEU #### [place] [address] [address] Chloride [Moles/Vol] 103 mmol/L Normal 98-107 [facility] ([place]) Comment on above: Performed By: #### ANASTASIA HUERTA, ANEU #### [address] [address] CO2 [Moles/Vol] 26 mmol/L Normal 23-31 [facility] ([place]) Comment on above: Performed By: #### ANASTASIA HUERTA, ANEU #### [address] [address] Creatinine [Mass/Vol] 0.88 mg/dL Normal 0.70-1.30 [facility] ([place]) Comment on above: Performed By: #### ANASTASIA HUERTA ANEU #### [address] [address] Electrolyte Balance 8.0 mEq/L Normal [facility] ([place]) Comment on above: Performed By: #### ANASTASIA HUERTA ANEU #### [place] [address] [address] Glucose [Mass/Vol] 129 mg/dL High 80-115 [facility] ([place]) Comment on above: Performed By: #### ANASTASIA HUERTA ANEU #### [place] [address] [address] Potassium [Moles/Vol] 4.6 mmol/L Normal 3.5-5.1 [facility] ([place]) Comment on above: Performed By: #### ANASTASIA HUERTA ANEU #### [place] [address] [address] Sodium [Moles/Vol] 137 mmol/L Normal 136-145 [facility] ([place]) Comment on above: Performed By: #### ANASTASIA HUERTA ANEU #### [place] [address] [address] Urea nitrogen [Mass/Vol] 14 mg/dL Normal 7-18 [facility] ([place]) Comment on above: Performed By: #### ANASTASIA HUERTA ANEU #### [place] [address] [address] Urea nitrogen/Creatinine [Mass ratio] 16 ratio Normal 7-27 [facility] ([place]) Comment on above: Performed By: #### ANASTASIA HUERTA ANEU #### [place] [address] [address] CBCon 06-04-2019 Erythrocyte distribution width (RBC) [Ratio] 15.5 % High 11.5-14.5 [facility] ([place]) Comment on above: Performed By: #### ANASTASIA HUERTA ANEU #### [address] [address] #### BMP, GFR #### [address] [address] Hematocrit (Bld) [Volume fraction] 36.4 % Low 42.0-52.0 [facility] ([place]) Comment on above: Performed By: #### C BC, ADIFF, ANEU #### [place] [address] #### BMP, GFR #### [address] [address] Hemoglobin (Bld) [Mass/Vol] 12.2 G/dL Low 14.0-18.0 [facility] ([place]) Comment on above: Performed By: #### C BC, ADIFF, ANEU #### [place] [address] #### BMP, GFR #### [place] [address] MCH (RBC) [Entitic mass] 28.0 pg Normal 27.0-31.2 [facility] ([place]) Comment on above: Performed By: #### C BC, ADIFF, ANEU #### [place] [address] #### BMP, GFR #### [address] [address] MCHC (RBC) [Mass/Vol] 33.6 G/dL Normal 31.8-35.4 [facility] ([place]) Comment on above: Performed By: #### C BC, ADIFF, ANEU #### [place] [address] #### BMP, GFR #### [place] [address] MCV (RBC) [Entitic vol] 83.4 fL Normal 80.0-94.0 [facility] ([place]) Comment on above: Performed By: #### C BC, ADIFF, ANEU #### [place] [address] #### BMP, GFR #### [address] [address] Platelet mean volume (Bld) [Entitic vol] 7.8 fL Normal 7.4-10.4 [facility] ([place]) Comment on above: Performed By: #### C BC, ADIFF, ANEU #### [address] [address] #### BMP, GFR #### [address] [address] Platelets (Bld) [#/Vol] 223 10 3/mcL Normal 130-400 [facility] ([place]) Comment on above: Performed By: #### C BC, ADIFF, ANEU #### [place] [address] #### BMP, GFR #### [place] [address] RBC (Bld) [#/Vol] 4.37 10 6/mcL Normal 4.04-6.13 [facility] ([place]) Comment on above: Performed By: #### C BC, ADIFF, ANEU #### [place] [address] #### BMP, GFR #### [place] [id number] WBC (Bld) [#/Vol] 16.50 10 3/mcL High 4.60-10.80 [facility] ([place]) Comment on above: Performed By: #### C BC, ADIFF, ANEU #### [place] [address] #### BMP, GFR #### [address] [address] XR SHOULDER MINIMUM 2 VIEWS LEFTon 06-03-2019 XR SHOULDER MINIMUM 2 VIEWS LEFT ORIGINAL XR SHOULDER MINIMUM 2 VIEWS LEFT CLINICAL STATEMENT: Total shoulder arthroplasty. COMPARISON: None FINDINGS: There is a left shoulder prosthesis. The components appear well seated and intact. No acute fracture or dislocation is identified. Deformity of the ventricular joint and straight mild degenerative change but is maintained. There is gas within the soft tissues consistent with immediate postoperative state. IMPRESSION: Postsurgical changes. Interpreted By: Nikki Wright MD Preliminary Report By: Nikki Wright MD Electronically Signed By: Nikki Wright MD Dictated Date: 06/03/2019 4:53:31 PM Prelim Date: 06/03/2019 4:53:31 PM Sign Date: 06/03/2019 4:54:18 PM Ordering Provider:Samreen Roblero [facility] ([place]) .Auto Diffon 05-23-2019 Ammonia (P) [Mass/Vol] 0.80 10 3/mcL Normal 0.15-1.00 [facility] ([place]) Comment on above: Performed By: #### ANASTASIA HUERTA, ANEU #### [address] [address] Basophils (Bld) [#/Vol] 0.00 10 3/mcL Normal 0.00-0.19 [facility] ([place]) Comment on above: Performed By: #### ANASTASIA HUERTA, ANEU #### [address] [address] Basophils/100 WBC (Bld) 0.5 % Normal 0.0-2.5 [facility] ([place]) Comment on above: Performed By: #### C ANASTASIA TATE, ANEU #### [address] [address] Eosinophils (Bld) [#/Vol] 0.30 10 3/mcL Normal 0.00-0.40 [facility] ([place]) Comment on above: Performed By: #### ANASTASIA HUERTA, ANEU #### [address] [address] Eosinophils/100 WBC (Bld) 3.7 % Normal 0.0-7.0 [facility] ([place]) Comment on above: Performed By: #### ANASTASIA HUERTA, ANEU #### [address] [address] Lymphocytes (Bld) [#/Vol] 1.70 10 3/mcL Normal 0.77-3.85 [facility] ([place]) Comment on above: Performed By: #### C ANASTASIA TATE, ANEU #### [place] [address] [address] Lymphocytes/100 WBC (Bld) 23.8 % Normal 10.0-50.0 [facility] ([place]) Comment on above: Performed By: #### C ANASTASIA TATE, ANEU #### [place] [address] [address] Monocytes/100 WBC (Bld) 11.5 % Normal 1.7-13.0 [facility] ([place]) Comment on above: Performed By: #### C ANASTASIA TATE, ANEU #### [place] [address] [address] Neutrophils/100 WBC (Bld) 60.5 % Normal 37.0-80.0 [facility] ([place]) Comment on above: Performed By: #### C ANASTASIA TATE, ANEU #### [place] [address] [address] .GFRon 05-23-2019 GFR Non- 89 ml/min/1.73sqm Normal [facility] ([place]) Comment on above: Result Comment: GFR Population mean for , Non- Americans Ages 20-29 = 116 mL/min/1.73 sq.m. Ages 30-39 = 107 mL/min/1.73 sq.m. Ages 40-49 = 99 mL/min/1.73 sq.m. Ages 50-59 = 93 mL/min/1.73 sq.m. Ages 60-69 = 85 mL/min/1.73 sq.m. Ages 70+ = 75 mL/min/1.73 sq.m. Chronic Kidney Disease: Less than 60 mL/min/1.73 square meters End Stage Renal Disease: Less than 15 mL/min/1.73 square meters Performed By: #### B MP, GFR #### [address] [address] GFR 108 ml/min/1.73sqm Normal [facility] ([place]) Comment on above: Result Comment: GFR Population mean for , Non- Americans Ages 20-29 = 116 mL/min/1.73 sq.m. Ages 30-39 = 107 mL/min/1.73 sq.m. Ages 40-49 = 99 mL/min/1.73 sq.m. Ages 50-59 = 93 mL/min/1.73 sq.m. Ages 60-69 = 85 mL/min/1.73 sq.m. Ages 70+ = 75 mL/min/1.73 sq.m. Chronic Kidney Disease: Less than 60 mL/min/1.73 square meters End Stage Renal Disease: Less than 15 mL/min/1.73 square meters Performed By: #### B MP, GFR #### [address] [address] .NEUABSon 05-23-2019 Neutrophils (Bld) [#/Vol] 4.20 10 3/mcL Normal 2.85-6.16 [facility] ([place]) Comment on above: Performed By: #### C BC, ANASTASIA, ANEU #### [address] [address] BMPon 05-23-2019 Calcium [Mass/Vol] 9.0 mg/dL Normal 8.4-10.2 [facility] ([place]) Comment on above: Performed By: #### B MP, GFR #### [address] [address] Chloride [Moles/Vol] 105 mmol/L Normal 98-107 [facility] ([place]) Comment on above: Performed By: #### B MP, GFR #### [address] [address] CO2 [Moles/Vol] 27 mmol/L Normal 23-31 [facility] ([place]) Comment on above: Performed By: #### B MP, GFR #### [address] [address] Creatinine [Mass/Vol] 0.86 mg/dL Normal 0.70-1.30 [facility] ([place]) Comment on above: Performed By: #### B MP, GFR #### [address] [address] Electrolyte Balance 6.0 mEq/L Normal [facility] ([place]) Comment on above: Performed By: #### B MP, GFR #### [address] [address] Glucose [Mass/Vol] 89 mg/dL Normal 80-115 [facility] ([place]) Comment on above: Performed By: #### B MP, GFR #### [address] [address] Potassium [Moles/Vol] 4.9 mmol/L Normal 3.5-5.1 [facility] ([place]) Comment on above: Performed By: #### B MP, GFR #### [address] [address] Sodium [Moles/Vol] 138 mmol/L Normal 136-145 [facility] ([place]) Comment on above: Performed By: #### B MP, GFR #### [address] [address] Urea nitrogen [Mass/Vol] 16 mg/dL Normal 7-18 [facility] ([place]) Comment on above: Performed By: #### B MP, GFR #### [address] [address] Urea nitrogen/Creatinine [Mass ratio] 19 ratio Normal 7-27 [facility] ([place]) Comment on above: Performed By: #### En MP, GFR #### [address] [address] CBCon 05-23-2019 Erythrocyte distribution width (RBC) [Ratio] 15.5 % High 11.5-14.5 [facility] ([place]) Comment on above: Performed By: #### ANASTASIA HUERTA, ANEU #### Chai [address] [address] Hematocrit (Bld) [Volume fraction] 40.3 % Low 42.0-52.0 [facility] ([place]) Comment on above: Performed By: #### ANASTASIA HUERTA, ANEU #### [address] [address] Hemoglobin (Bld) [Mass/Vol] 13.5 G/dL Low 14.0-18.0 [facility] ([place]) Comment on above: Performed By: #### ANASTASIA HUERTA, ANEU #### [address] [address] MCH (RBC) [Entitic mass] 28.2 pg Normal 27.0-31.2 [facility] ([place]) Comment on above: Performed By: #### ANASTASIA HUERTA, ANEU #### [address] [address] MCHC (RBC) [Mass/Vol] 33.5 G/dL Normal 31.8-35.4 [facility] ([place]) Comment on above: Performed By: #### ANASTASIA HUERTA, ANEU #### [address] [address] MCV (RBC) [Entitic vol] 84.2 fL Normal 80.0-94.0 [facility] ([place]) Comment on above: Performed By: #### ANASTASIA HUERTA, ANEU #### [address] [address] Platelet mean volume (Bld) [Entitic vol] 8.0 fL Normal 7.4-10.4 [facility] ([place]) Comment on above: Performed By: #### C ANASTASIA TATE, ANEU #### [address] [address] Platelets (Bld) [#/Vol] 212 10 3/mcL Normal 130-400 [facility] ([place]) Comment on above: Performed By: #### ANASTASIA HUERTA, ANEU #### [address] [address] RBC (Bld) [#/Vol] 4.78 10 6/mcL Normal 4.04-6.13 [facility] ([place]) Comment on above: Performed By: #### ANASTASIA HUERTA, ANEU #### [address] [address] WBC (Bld) [#/Vol] 6.90 10 3/mcL Normal 4.60-10.80 [facility] ([place]) Comment on above: Performed By: #### ANASTASIA HUERTA, ANEU #### [address] [address] [address] SHOULDER W/O CONTRAST LEF Ton 03-15-[address] left shoulder without contrast with sagittal and coronal reconstructions Clinical Statement: SECONDARY OSTEOARTHRITIS, LFT SHOULDER, , shoulder pain, Comparison: None TECHNIQUE:This exam was performed according to our departmental dose optimization program, and includes the following measures where applicable: automated exposure control, adjustment of the mAs and/or kVp according to patient size and/or exam, and an iterative reconstruction algorithm. FINDINGS: There is mild subchondral sclerosis of the glenoid fossa and humeral head without significant joint space narrowing. There is mild anterior subluxation of the humeral head at the glenohumeral joint also. Superior migration of the humeral head with markedly decreased subacromial space indicates a high-grade chronic rotator cuff tear. There is no rotator cuff muscle atrophy. There is moderate glenohumeral joint effusion. There is mild AC joint arthrosis. There is a moderately displaced well-corticated ossicle from the anterior aspect of the acromion. There or healing/nonunited fractures of the left-sided ribs off uncertain age with a moderate amount of callus formation but no solid bony union. There is some adjacent pleural thickening in the left hemithorax. Multiple calcified left lung granulomas are present. IMPRESSION: Mild glenohumeral degenerative arthritis. Suspect anterior instability in the glenohumeral joint. Moderate joint effusion. Superior migration of the humeral head suggesting a high-grade chronic rotator cuff tear. 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 Multiple nonunited/malunited fractures of left-sided ribs of uncertain age. These are probably nonacute given moderate pleural thickening in the left hemithorax. Correlate with history of trauma and chest radiographs. Interpreted By: Fermín Quispe MD Preliminary Report By: Fermín Quispe MD Electronically Signed By: Fermín Quispe MD Dictated Date: 03/14/2019 11:13:45 PM Prelim Date: 03/14/2019 11:13:45 PM Sign Date: 03/14/2019 11:27:46 PM Ordering Provider:Samreen Roblero [facility] ([place]) Auto Diffon 09-21-2018 Basophils #/vol (Bld) 0.0 E3/mcL Normal 0.0-0.2 [facility] Comment on above: Order Comment: Order Added by Discern Expert. Performed By: #### 2 [id number] #### BABITA GarcíaHemo [address] [place] [address] Basophils/100 WBC (Bld) 0.3 % Normal 0.0-2.0 [facility] Comment on above: Order Comment: Order Added by Discern Expert. Performed By: #### 2 [id number] #### BABITA GarcíaHemo [address] [place] [address] Eos Absolute 0.3 E3/mcL Normal 0.0-0.7 [facility] Comment on above: Order Comment: Order Added by Discern Expert. Performed By: #### 2 [id number] #### BABITA GarcíaHemo [address] [place] [address] Eosinophils/100 WBC (Bld) 3.2 % Normal 0.0-11.0 [facility] Comment on above: Order Comment: Order Added by Discern Expert. Performed By: #### 2 [id number] #### BABITA RemHemo [address] [place] [address] Lymphocytes #/vol (Bld) 1.2 E3/mcL Normal 1.2-3.4 [facility] Comment on above: Order Comment: Order Added by Prieto Expert. Performed By: #### 2 [id number] #### BABITA GarcíaHemo [address] [place] [address] Lymphocytes/100 WBC (Bld) 14.0 % Low 20.0-55.0 [facility] Comment on above: Order Comment: Order Added by Discern Expert. Performed By: #### 2 [id number] #### BABITA RemHemo [address] [place] [address] Gilliam Absolute 1.1 E3/mcL High 0.0-0.7 [facility] Comment on above: Order Comment: Order Added by Discern Expert. Performed By: #### 2 654267 #### BABITA RemHemo [address] [place] [address] Monocytes/100 WBC (Bld) 12.9 % High 0.0-10.0 [facility] Comment on above: Order Comment: Order Added by Discern Expert. Performed By: #### 2 950349 #### BABITA GarcíaHemo [address] [place] [address] Neutro Absolute 5.9 E3/mcL Normal 1.4-6.5 [facility] Comment on above: Order Comment: Order Added by Discern Expert. Performed By: #### 2 [id number] #### BABITA GarcíaHemo [address] [place] [address] Neutro Auto 69.6 % Normal 37.0-75.0 [facility] Comment on above: Order Comment: Order Added by Discern Expert. Performed By: #### 2 [id number] #### BABITA GarcíaHemo [address] [place] [address] BMPon 09-21-2018 Anion gap molar conc 9 mmol/L Low 10-20 [facility] Comment on above: Performed By: #### 2 [id number] #### BABITA GarcíaHemo [address] [place] [address] Calcium mass conc 8.5 mg/dL Low 8.6-10.3 [facility] Comment on above: Performed By: #### 2 448573 #### BABITA GarcíaHemo [address] [place] [address] Chloride molar conc 108 mmol/L High 98-107 [facility] Comment on above: Performed By: #### 2 495842 #### BABITA GarcíaHemo [address] [place] [address] CO2 molar conc 22.0 mmol/L Normal 21.0-32.0 [facility] Comment on above: Performed By: #### 2 [id number] #### BABITA GarcíaHemo [address] [place] [address] Creatinine mass conc 0.7 mg/dL Normal 0.5-1.3 [facility] Comment on above: Performed By: #### 2 710754 #### BABITA RemHemo [address] [place] [address] Glucose mass conc 100 mg/dL High 70-99 [facility] Comment on above: Performed By: #### 2 281001 #### BABITA RemHemo [address] [place] [address] Potassium molar conc 4.3 mmol/L Normal 3.5-5.3 [facility] Comment on above: Performed By: #### 2 398148 #### BABITA RemHemo [address] [place] [address] Sodium molar conc 135 mmol/L Low 136-145 [facility] Comment on above: Performed By: #### 2 139782 #### BABITA RemHemo [address] [place] [address] Urea nitrogen mass conc 13 mg/dL Normal 6-23 [facility] Comment on above: Performed By: #### 2 [id number] #### BABITA RemHemo [address] [place] [address] Urea nitrogen/Creatinine mass ratio 18.6 ratio Normal 5.4-30.0 [facility] Comment on above: Performed By: #### 2 879282 #### BABITA RemHemo [address] [place] [address] CBC w/ Auto Diffon Erythrocyte distribution width Ratio (RBC) 14.0 % Normal 11.5-14.5 [facility] Comment on above: Performed By: #### 2 767184 #### BABITA RemHemo [address] [place] [address] Hematocrit Volume Fraction (Bld) 40.3 % Low 42.0-52.0 [facility] Comment on above: Performed By: #### 2 827364 #### BABITA RemHemo [address] [place] [address] Hemoglobin mass conc (Bld) 13.5 g/dL Normal 13.5-18.0 [facility] Comment on above: Performed By: #### 2 499243 #### BABITA RemHemo [address] [place] [address] MCH Entitic mass (RBC) 29.3 pg Normal 27.0-31.0 [facility] Comment on above: Performed By: #### 2 904242 #### BABITA RemHemo [address] [place] [address] MCHC mass conc (RBC) 33.5 g/dL Normal 33.0-37.0 [facility] Comment on above: Performed By: #### 2 [id number] #### BABITA RemHemo [address] [place] [id number] MCV Entitic volume (RBC) 87.5 fL Normal 78.0-100.0 [facility] Comment on above: Performed By: #### 2 169623 #### BABITA Paceo [facility] [place] [id number] Platelet mean volume Entitic volume (Bld) 8.0 fL Normal 7.4-11.0 [facility] Comment on above: Performed By: #### 2 382259 #### BABITA GarcíaHemo [facility] [place] [phone] Platelets #/vol (Bld) 186 E3/mcL Normal 130-400 [facility] Comment on above: Performed By: #### 2 392957 #### BABITA GarcíaHemo [facility] [place] [phone] RBC #/vol (Bld) 4.60 E6/mcL Normal 3.90-6.10 [facility] Comment on above: Performed By: #### 2 [id number] #### BABITA Paceo [facility] [place] [phone] WBC #/vol (Bld) 8.5 E3/mcL Normal 3.6-11.0 [facility] Comment on above: Performed By: #### 2 261249 #### BABITA Paceo [facility] [place] [phone] Magnesiumon 09-21-2018 Magnesium mass conc 1.9 mg/dL Normal 1.6-2.4 [facility] Comment on above: Performed By: #### 2 684910 #### BABITA GarcíaHemo [facility] [place] [phone] eGFRon 09-21-2018 GFR/1.73 sq M predicted among non-blacks MDRD vol rate/area (S/P/Bld) mL/min/{1.73_m2} Normal [facility] Comment on above: Order Comment: Order Added by Discern Expert. Performed By: #### 2 [id number] #### BABITA GarcíaHemo [facility] [place] [id number] Auto Diffon 09-20-2018 Basophils #/vol (Bld) 0.0 E3/mcL Normal 0.0-0.2 [facility] Comment on above: Order Comment: Order Added by Discern Expert. Performed By: #### 2 656937 #### BABITA RemHemo [address] [place] [address] Basophils/100 WBC (Bld) 0.4 % Normal 0.0-2.0 [facility] Comment on above: Order Comment: Order Added by Discern Expert. Performed By: #### 2 156407 #### BABITA RemHemo [address] [place] [address] Eos Absolute 0.2 E3/mcL Normal 0.0-0.7 [facility] Comment on above: Order Comment: Order Added by Discern Expert. Performed By: #### 2 718180 #### BABITA RemHemo [address] [place] [address] Eosinophils/100 WBC (Bld) 1.8 % Normal 0.0-11.0 [facility] Comment on above: Order Comment: Order Added by Discern Expert. Performed By: #### 2 655144 #### BABITA RemHemo [address] [place] [address] Lymphocytes #/vol (Bld) 1.1 E3/mcL Low 1.2-3.4 [facility] Comment on above: Order Comment: Order Added by Discern Expert. Performed By: #### 2 840314 #### BABITA RemHemo [address] [place] [address] Lymphocytes/100 WBC (Bld) 11.6 % Low 20.0-55.0 [facility] Comment on above: Order Comment: Order Added by Discern Expert. Performed By: #### 2 783829 #### BABITA RemHemo [address] [place] [address] Gilliam Absolute 0.8 E3/mcL High 0.0-0.7 [facility] Comment on above: Order Comment: Order Added by Discern Expert. Performed By: #### 2 714130 #### BABITA RemHemo [address] [place] [address] Monocytes/100 WBC (Bld) 8.0 % Normal 0.0-10.0 [facility] Comment on above: Order Comment: Order Added by Discern Expert. Performed By: #### 2 160818 #### BABITA RemHemo [address] [place] [address] Neutro Absolute 7.6 E3/mcL High 1.4-6.5 [facility] Comment on above: Order Comment: Order Added by Discern Expert. Performed By: #### 2 036745 #### BABITA RemHemo [address] [place] [address] Neutro Auto 78.2 % High 37.0-75.0 [facility] Comment on above: Order Comment: Order Added by Discern Expert. Performed By: #### 2 306476 #### BABITA RemHemo [address] [place] [address] BMPon 09-20-2018 Anion gap molar conc 11 mmol/L Normal 10-20 [facility] Comment on above: Performed By: #### 2 134255 #### BABITA [employer] [address] [place] [address] Calcium mass conc 9.2 mg/dL Normal 8.6-10.3 [facility] Comment on above: Performed By: #### 2 281096 #### BABITA [employer] [address] [place] [address] Chloride molar conc 110 mmol/L High 98-107 [facility] Comment on above: Performed By: #### 2 466483 #### BABITA [employer] [address] [place] [address] CO2 molar conc 22.0 mmol/L Normal 21.0-32.0 [facility] Comment on above: Performed By: #### 2 973071 #### ABBITA [employer] [address] [place] [address] Creatinine mass conc 1.0 mg/dL Normal 0.5-1.3 [facility] Comment on above: Performed By: #### 2 [id number] #### BABITA [employer] [address] [place] [address] Glucose mass conc 132 mg/dL High 70-99 [facility] Comment on above: Performed By: #### 2 115734 #### BABITA [employer] [address] [place] [address] Potassium molar conc 4.1 mmol/L Normal 3.5-5.3 [facility] Comment on above: Performed By: #### 2 749578 #### BABITA [employer] [address] [place] [address] Sodium molar conc 139 mmol/L Normal 136-145 [facility] Comment on above: Performed By: #### 2 862425 #### BABITA [employer] [address] [place] [address] Urea nitrogen mass conc 17 mg/dL Normal 6-23 [facility] Comment on above: Performed By: #### 2 050815 #### BABITA [employer] [address] [place] [address] Urea nitrogen/Creatinine mass ratio 17.0 ratio Normal 5.4-30.0 [facility] Comment on above: Performed By: #### 2 346679 #### BABITA [employer] [address] [place] [address] CBC w/ Auto Diffon 9 Erythrocyte distribution width Ratio (RBC) 13.9 % Normal 11.5-14.5 [facility] Comment on above: Performed By: #### 2 641550 #### BABITA RemHemo [address] [place] [address] Hematocrit Volume Fraction (Bld) 42.5 % Normal 42.0-52.0 [facility] Comment on above: Performed By: #### 2 113592 #### BABITA RemHemo [address] [place] [address] Hemoglobin mass conc (Bld) 14.4 g/dL Normal 13.5-18.0 [facility] Comment on above: Performed By: #### 2 660236 #### BABITA RemHemo [address] [place] [address] MCH Entitic mass (RBC) 29.6 pg Normal 27.0-31.0 [facility] Comment on above: Performed By: #### 2 [id number] #### BABITA RemHemo [address] [place] [address] MCHC mass conc (RBC) 33.8 g/dL Normal 33.0-37.0 [facility] Comment on above: Performed By: #### 2 562280 #### BABITA RemHemo [address] [place] [address] MCV Entitic volume (RBC) 87.4 fL Normal 78.0-100.0 [facility] Comment on above: Performed By: #### 2 840798 #### BABITA RemHemo [address] [place] [address] Platelet mean volume Entitic volume (Bld) 7.7 fL Normal 7.4-11.0 [facility] Comment on above: Performed By: #### 2 655712 #### BABITA RemHemo [address] [place] [address] Platelets #/vol (Bld) 237 E3/mcL Normal 130-400 [facility] Comment on above: Performed By: #### 2 751460 #### BABITA RemHemo [address] [place] [address] RBC #/vol (Bld) 4.87 E6/mcL Normal 3.90-6.10 [facility] Comment on above: Performed By: #### 2 952737 #### BABITA RemHemo [facility] [place] [address] WBC #/vol (Bld) 9.8 E3/mcL Normal 3.6-11.0 [facility] Comment on above: Performed By: #### 2 699698 #### BABITA RemHemo [facility] [place] [address] CT Head or Brain w/o Contras ton 09-20-2018 CT Head or Brain w/o Contrast Exam Date/Time: 09/20/2018 12:44 EDT Reason for Exam: Injury Report STUDY: CT Head or Brain w/o Contrast; 09/20/2018 12:44 pm INDICATION: Injury. Fell from ladder. Left lower rib pain. COMPARISON: 12/19/2012. ACCESSION NUMBER(S): [id number] ORDERING CLINICIAN: Collin Mendoza TECHNIQUE: Contiguous unenhanced axial images were obtained through the brain. FINDINGS: INTRACRANIAL: Mild generalized atrophy is seen. Nonspecific irregular low-attenuation changes throughout the periventricular and subcortical white matter are similar to prior, most likely related to chronic microvascular disease. Small irregular atherosclerotic calcifications present in the internal carotid artery segments. Stable basal ganglia calcifications also seen. No acute intracranial bleed, midline shift, or mass effect is seen. Damico-white differentiation is maintained. No extra-axial fluid collection or hydrocephalus. Bones are intact. EXTRACRANIAL: Mild peripheral polypoid mucosal thickening present in the paranasal sinuses without visualized air-fluid level. Mastoid air cells are clear. IMPRESSION: Age-related changes. No acute intracranial process. FINAL REPORT Dictated: 09/20/2018 12:56 pm Sue Larose MD Signed (Electronic Signature): 09/20/2018 12:56 pm Signed by: Sue Larose MD Technologist: Osbaldo CORADO [facility] CT Spine Cervical w/o Contra ston 09-20-2018 CT Spine Cervical w/o Contrast Exam Date/Time: 09/20/2018 12:44 EDT Reason for Exam: Trauma Report STUDY: CT Spine Cervical w/o Contrast; 09/20/2018 12:44 pm INDICATION: Trauma. COMPARISON: None. ACCESSION NUMBER(S): [id number] ORDERING CLINICIAN: Collin Mendoza TECHNIQUE: Contiguous unenhanced axial images were obtained through the cervical spine with coronal and sagittal reformations of the axial data. FINDINGS: ALIGNMENT: The craniocervical junction appears intact. The dens and atlantoaxial relation appear intact with regional marginal spurring and some irregular ligamentous calcification. Cervical alignment is normal. VERTEBRAE/DISC SPACES: Multilevel disc space narrowing and endplate spurring is most prominent at C4-5 and C6-7. There is also multilevel facet arthrosis with uncovertebral spurring bilaterally throughout the cervical spine. No acute fracture, subluxation, or compression deformity is seen. ADDITIONAL FINDINGS: Prevertebral soft tissues are not thickened. Few punctate calcifications are noted in the lung apices. There is partial visualization of a nonacute deformity of the right clavicle most compatible with old trauma. IMPRESSION: Multilevel degenerative disc and facet changes throughout the cervical spine. No acute fracture or subluxation of the cervical spine. FINAL REPORT Dictated: 09/20/2018 12:58 pm Sue Larose MD Signed (Electronic Signature): 09/20/2018 12:58 pm Signed by: Sue Larose MD Technologist: Osbaldo CORADO [facility] CT Thorax w/ Contraston 05-3 CT Thorax w/ Contrast Exam Date/Time: 09/20/2018 12:44 EDT Reason for Exam: Trauma Report STUDY: CT Thorax w/ Contrast; 09/20/2018 12:44 pm INDICATION: Trauma. Fall from ladder. Left lower rib pain. COMPARISON: 01/17/2013. ACCESSION NUMBER(S): [id number] ORDERING CLINICIAN: Collin Mendoza TECHNIQUE: Helical data acquisition of the chest was obtained after intravenous administration of 150 mL Omnipaque 350contrast. Images were reformatted in axial, coronal, and sagittal planes. FINDINGS: LUNGS and AIRWAYS: There are multiple small calcified granulomas throughout both lungs. Mild predominantly dependent and basilar atelectasis/scarring is seen bilaterally. No localized consolidation. No pleural effusion or pneumothorax. MEDIASTINUM and JOVANNI, LOWER NECK AND AXILLA: Small partially calcified multi station mediastinal and hilar lymph nodes are compatible with old granulomatous disease. No axillary lymphadenopathy. Nonspecific mild circumferential wall thickening of the distal esophagus is noted. HEART and VESSELS: Thoracic aorta is normal in course and caliber without aneurysm. Small irregular atherosclerotic calcifications present in the aorta and branch vessels. Coronary artery calcifications and/or stents are also present. There is small volume pericardial fluid toward the superior pericardial recess without significant pericardial effusion. Heart is not significantly enlarged. UPPER ABDOMEN: Subcentimeter low-attenuation lesion in the right hepatic lobe is too small to characterize but likely benign. Subcentimeter left renal low-attenuation lesions are also too small to characterize. There is a tiny nonobstructing left renal calculus. CHEST WALL and OSSEOUS STRUCTURES: There is a remote healed deformity of the mid right clavicle. There are multiple old healed right rib fractures with irregular callus formation. There also incompletely united old fractures of the right 8th and 7th ribs. Exam Date/Time: 09/20/2018 12:44 EDT Report There are multiple nondisplaced acute left rib fractures including the 4th and 5th rib lateral aspects. There also nondisplaced fractures of the 6th-11th ribs posteriorly near the costovertebral junction. Multilevel degenerative disc changes are present throughout the thoracic spine with mild disc space narrowing and predominantly anterior endplate spurring. IMPRESSION: 1. Multiple nondisplaced acute left rib fractures including the 4th and 5th rib lateral aspects and 6 to 11th ribs posteriorly near the costovertebral junction. 2. Multiple old healed right rib fractures as well as old incompletely united right 8th and 7th rib fractures. 3. Mild predominantly dependent and basilar atelectasis/scarring bilaterally. No focal consolidation. No pneumothorax. FINAL REPORT Dictated: 09/20/2018 1:09 pm Sue Larose MD Signed (Electronic Signature): 09/20/2018 1:09 pm Signed by: Sue Larose MD Technologist: , [facility] XR Elbow 3+ Views Lefton XR Elbow 3+ Views Left Exam Date/Time: 09/20/2018 12:22 EDT Reason for Exam: Fall Report STUDY: XR Elbow 3+ Views Left;; 09/20/2018 12:22 pm INDICATION: Fall. COMPARISON: None. ACCESSION NUMBER(S): [id number] ORDERING CLINICIAN: Collin Mendoza FINDINGS: Five views of the left elbow. No visible acute fractures or dislocations. There is a small posterior olecranon spur. Corticated ossific density adjacent to the olecranon spur may represent an accessory ossicle or sequela of remote fracture. Small osteophytes about the elbow joint. No significant joint effusion. IMPRESSION: Mild degenerative changes. Posterior olecranon spur. No visible acute fractures or dislocations. FINAL REPORT Dictated: 09/20/2018 12:43 pm Patsy Desai MD Signed (Electronic Signature): 09/20/2018 12:43 pm Signed by: Patsy Desai MD Technologist: [facility] XR Shoulder Complete Lefton 09-20-2018 XR Shoulder Complete Left Exam Date/Time: 09/20/2018 11:58 EDT Reason for Exam: Fall Report STUDY: XR Shoulder Complete Left;; 09/20/2018 11:58 am INDICATION: Fall. COMPARISON: None. ACCESSION NUMBER(S): [id number] ORDERING CLINICIAN: Collin Mendoza FINDINGS: Two views of the left shoulder. No visible acute fractures or dislocations involving the shoulder. Mild degenerative changes with small osteophytes at the AC and glenohumeral joint. There are possible nondisplaced fractures of the lateral 4th and 5th ribs. IMPRESSION: Mild degenerative changes. No definite acute fractures involving the shoulder. Probable nondisplaced fractures of the lateral 4th and 5th ribs on the left. Dedicated rib films may be considered. FINAL REPORT Dictated: 09/20/2018 12:38 pm Patsy Desai MD Signed (Electronic Signature): 09/20/2018 12:38 pm Signed by: Patsy Desai MD Technologist: [facility] XR Wrist 3+ Views Lefton XR Wrist 3+ Views Left Exam Date/Time: 09/20/2018 11:58 EDT Reason for Exam: Fall Report STUDY: XR Wrist 3+ Views Left; 09/20/2018 11:58 am INDICATION: Fall. COMPARISON: None ACCESSION NUMBER(S): [id number] ORDERING CLINICIAN: Collin Mendoza FINDINGS: Nondisplaced slightly impacted left distal radial metaphyseal fracture with extension to the articular surface. Mild degenerative changes of the carpus. IMPRESSION: Nondisplaced left distal radial fracture. FINAL REPORT Dictated: 09/20/2018 12:22 pm Joe Barone MD Signed (Electronic Signature): 09/20/2018 12:22 pm Signed by: Joe Barone MD Technologist: [place] [facility] eGFRon 09-20-2018 GFR/1.73 sq M predicted among non-blacks MDRD vol rate/area (S/P/Bld) mL/min/{1.73_m2} [facility] Comment on above: Order Comment: Order added by Discern Expert. Performed By: #### [id number] #### BABITA [facility] [facility] [place] [address] Vital Signs Date Time Vital Sign Value Performing Clinician Facility 08-28-2024 13:51-0400 Body height 175.26 cm Rina HENDRICKSON Work Phone: [facility] 08-28-2024 13:51-0400 Body mass index (BMI) [Ratio] 28.3 kg/m2 Rina HENDRICKSON Work Phone: [facility] 08-28-2024 13:51-0400 Body weight 87.08 kg Rina Johnson [employer]ANT OPERATOR[employer]C Work Phone: [facility] 08-28-2024 13:51-0400 Diastolic blood pressure 77 mm[Hg] Rina Johnson [employer]ACE[employer]ICAL PLANT OPERATOR-C Work Phone: [facility] 08-28-2024 13:51-0400 Heart rate 59 /min Rina Johnson [employer]ARMACE[employer]ICAL PLANT OPERATOR-C Work Phone: [facility] 08-28-2024 13:51-0400 Respiratory rate 16 /min Rina Johnson [employer]ARMACE[employer]ICAL PLANT OPERATOR-C Work Phone: [facility] 08-28-2024 13:51-0400 Systolic blood pressure 128 mm[Hg] Rina Johnson [employer]ARMACE[employer]ICAL PLANT OPERATOR-C Work Phone: [facility] 02-20-2022 11:50-0400 Body temperature 98.2 [degF] Dr. Gabriela Conroy Work Phone: [facility] Work Phone: 02-20-2022 11:50-0400 Diastolic blood pressure 67 mm[Hg] Dr. Gabriela Conroy Work Phone: [facility] Work Phone: 02-20-2022 11:50-0400 Heart rate 56 /min Dr. Gabriela Conroy Work Phone: [facility] Work Phone: 02-20-2022 11:50-0400 Respiratory rate 16 /min Dr. Gabriela Conroy Work Phone: [facility] Work Phone: 02-20-2022 11:50-0400 SaO2% (BldA) [Mass fraction] 98 % Dr. Gabriela Conroy Work Phone: [facility] Work Phone: 02-20-2022 11:50-0400 Systolic blood pressure 111 mm[Hg] Dr. Gabriela Conroy Work Phone: [facility] Work Phone: 02-20-2022 08:57-0400 Body temperature 98.4 [degF] Dr. Gabriela Conroy Work Phone: [facility] Work Phone: 02-20-2022 08:57-0400 Diastolic blood pressure 81 mm[Hg] Dr. Gabriela Conroy Work Phone: [facility] Work Phone: 02-20-2022 08:57-0400 Heart rate 60 /min Dr. Gabriela Conroy Work Phone: [facility] Work Phone: 02-20-2022 08:57-0400 Respiratory rate 16 /min Dr. Gabriela Conroy Work Phone: [facility] Work Phone: 02-20-2022 08:57-0400 SaO2% (BldA) [Mass fraction] 96 % Dr. Gabriela Conroy Work Phone: [facility] Work Phone: 02-20-2022 08:57-0400 Systolic blood pressure 116 mm[Hg] Dr. Gabriela Conroy Work Phone: [facility] Work Phone: 02-17-2022 14:16-0400 Body height 177.[address] Gabriela Conroy Work Phone: [facility] Work Phone: 02-17-2022 14:16-0400 Body weight 87.[address] Gabriela Conroy Work Phone: [facility] Work Phone: 02-17-2022 12:52-0400 Body mass index (BMI) [Ratio] 27.6 kg/m2 Dr. Gabriela Conroy Work Phone: [facility] Work Phone: 01-20-2022 09:59-0400 Body mass index (BMI) [Ratio] 28 kg/m2 Dr. Gabriela Conroy Work Phone: [facility] Work Phone: 01-20-2022 09:59-0400 Body weight 88.[address] Gabriela Conroy Work Phone: [facility] Work Phone: 01-20-2022 09:59-0400 Diastolic blood pressure 70 mm[Hg] Dr. Gabriela Conroy Work Phone: [facility] Work Phone: 01-20-2022 09:59-0400 Heart rate 60 /min Dr. Gabriela Conroy Work Phone: [facility] Work Phone: 01-20-2022 09:59-0400 Respiratory rate 16 /min Dr. Gabriela Conroy Work Phone: [facility] Work Phone: 01-20-2022 09:59-0400 Systolic blood pressure 122 mm[Hg] Dr. Gabriela Conroy Work Phone: [facility] Work Phone: 01-31-2021 20:52-0400 Diastolic blood pressure 95 mm[Hg] Gabriela Conroy Other Phone: [facility] 01-31-2021 20:52-0400 Systolic blood pressure 170 mm[Hg] Gabriela Conroy Other Phone: [facility] 01-31-2021 20:34-0400 Heart rate 59 /min Gabriela Conroy Other Phone: [facility] 01-31-2021 20:34-0400 Respiratory rate 18 /min Gabriela Conroy Other Phone: [facility] 01-31-2021 20:34-0400 SaO2% (BldA) [Mass fraction] 99 % Gabriela Conroy Other Phone: [facility] 01-31-2021 16:32-0400 Body temperature 98.24 [degF] Gabriela Conroy Other Phone: [facility] 01-31-2021 16:32-0400 Body weight 91 kg Gabriela Conroy Other Phone: [facility] 09-30-2018 08:43-0400 BMI (Body Mass Index) 27.32 kg/m2 Sue Shine [facility] 09-30-2018 08:43-0400 Height 175.3 cm Sue Shine [facility] 09-30-2018 08:43-0400 Weight 83.92 kg Sue Shine [facility] Encounters Encounter Date Encounter Type Care Provider Facility Start: 01-30-2025 End: 01-30-[address] Samreen Mcknight MD -Cardiovascular Services Work Phone: Start: 01-30-2025 End: 01-30-2025 ambulatory Samreen Mcknight Facility:[facility] Start: 01-22-2025 Non-patient / Non-visit Dr. Daniel mcmullen MD -[facility] Start: 01-22-2025 End: 01-22-2025 ambulatory Samreen Mcknight Facility[place] Start: 01-22-2025 End: 01-22-[address] Samreen Mcknight MD -Cardiovascular Services Work Phone: Start: 01-22-2025 End: 01-22-2025 ambulatory Samreen Mcknight Facility:[facility] Start: 12-30-2024 End: 12-30-2024 ambulatory [facility] Start: 12-23-2024 End: 12-24-[address] SAMREEN MCKNIGHT MD Facility:[facility] Start: 12-23-2024 End: 12-24-[address] SAMREEN MCKNIGHT MD [facility] Start: 12-11-2024 End: 12-11-[address] GABRIELA CORNOY MD Facility:[facility] Start: 12-11-2024 End: 12-11-[address] SAMREEN MCKNIGHT MD [facility] Start: 12-11-2024 End: 12-11-[address] SAMREEN MCKNIGHT MD [facility] Start: 12-11-2024 End: 12-11-[address] SAMREEN MCKNIGHT MD Facility:[facility] Start: 10-07-2024 Non-patient / Non-visit [facility]. Palm [facility] Start: 10-07-2024 End: 10-07-2024 ambulatory Rina Johnson PHARMACEUTICAL PLANT OPERATORPriyaC Work Phone: [facility] Work Phone: Start: 10-07-2024 End: 10-07-2024 Patient encounter procedure Jennifer PRESSLEY -Cardiovascular Services Work Phone: Start: 10-07-2024 End: 10-07-2024 ambulatory Jennifer PRESSLEY Facility:[facility] Start: 08-28-2024 End: 08-28-2024 Patient encounter procedure Jennifer PRESSLEY -[facility] Work Phone: Start: 08-28-2024 End: 08-28-2024 ambulatory Jennifer PRESSLEY Facility:[facility] Start: 07-23-2024 End: 07-23-2024 ambulatory RINA JOHNSON [facility] Start: 07-22-2024 End: 07-22-2024 ambulatory RINA JOHNSON [facility] Start: 05-20-2024 End: 05-20-2024 ambulatory FAROOQ ASHTON Facility:[facility] Start: 05-20-2024 End: 05-20-2024 Patient encounter procedure Farooq Ashton OD Work Phone: Optometry Comment on above: Hyperopia, bilateral (Primary Dx); Regular astigmatism, bilateral; Presbyopia Start: 02-28-2024 End: 02-28-2024 ambulatory Rina Johnson Facility:[facility] Start: 2024 End: 2024 ambulatory RINA ALEX [facility] Start: 11-22-2023 End: 11-22-2023 ambulatory MERCEDES Rosenberg [facility] Start: 02-07-2023 End: 02-11-2023 ambulatory MEME CARABALLO [facility] Start: 07-10-[address] Gabriela Conroy Facility:[id number] Start: 06-30-[address] Johnnie Montez Facility:9509 Start: 06-28-[address] Johnnie Poolpabijan Facility:9509 Start: 06-23-[address] Gabriela Conroy Facility:9509 Start: 06-21-[address] Gabriela Conroy Facility:9509 Start: 06-16-[address] Gabriela Conory Facility:9509 Start: 06-14-[address] Gabriela Conroy Facility:9509 Start: 06-09-[address] Gabriela oCnroy Facility:9509 Start: 06-05-[address] Gabriela Conroy Facility:9509 Start: 06-02-[address] Gabriela Conroy Facility:9509 Start: 05-31-[address] Gabriela Conroy Facility:9509 Start: 05-29-[address] Johnnie Montez Facility:9509 Start: 05-26-[address] Johnnie Poolpabijan Facility:9509 Start: 05-24-[address] Johnnie Poolpabijan Facility:9509 Start: 05-22-[address] Johnnie Poolpabijan Facility:9509 Start: 04-19-2022 Telephone encounter Wilma Campos Cardiology Comment on above: Post Dc Program Call - Fyi Start: 03-15-2022 Non-patient / Non-visit Dr. Dior Work Phone: [facility] Start: 03-09-2022 End: 03-09-[address] Gabriela Conroy Work Phone: [facility] Work Phone: Start: 03-09-2022 End: 03-09-[address] Gabriela Conroy Work Phone: [facility]-Pulmonary Services/Neurology Start: 03-01-2022 Telephone encounter Janet LESTER Comment on above: Follow Up Phone Call (Relate care discharge follow il-[id number] clear) Start: 02-27-2022 Telephone encounter Denzel Copeland MD Work Phone: Cardiology Comment on above: [facility] MED RECS VIA FA X [facility] MED LABS VIA FA X Opened In Error Start: 02-23-2022 End: 02-23-2022 Evaluation and management of inpatient Pulm Fct Lab J-2 Pulmonary Medicine Comment on above: Pre-op testing (Prim bong Dx) Start: 02-23-2022 End: 02-23-2022 Patient encounter status Pulm J-2 Pulmonary Medicine Start: 02-21-2022 ambulatory Veronika Vang [employer] Work Phone: Cardiothoracic Comment on above: Patient Education Start: 02-21-2022 End: 02-24-2022 Patient encounter status Veronika Joiner [employer] Work Phone: [facility] Work Phone: Start: 02-20-2022 Non-patient / Non-visit Dr. Dior Work Phone: [facility] Start: 02-19-2022 Non-patient / Non-visit Dr. Dior Work Phone: [facility] Start: 02-19-2022 End: 02-20-2022 Evaluation and management of inpatient Dr. Gabriela Conroy Work Phone: [facility]-Progressive Care Unit Start: 02-18-2022 Non-patient / Non-visit Dr. Dior Work Phone: [facility] Start: 02-17-2022 Non-patient / Non-visit Dr. Dior Work Phone: [facility] Start: 01-20-2022 End: 01-20-[address] Gabriela Conroy Work Phone: [facility] Start: 01-17-2022 Non-patient / Non-visit Dr. Dior Work Phone: [facility] Start: 11-28-2021 ambulatory MEME VALLADARES [facility] Ambulatory Start: 11-28-2021 Chart abstracting Mechelle Mcallister MA [facility] Start: 01-31-2021 End: 01-31-2021 Emergency department patient visit Cesar Metcalf [facility] Emergency 13 Start: 05-31-2020 End: 05-31-2020 Orders Only Bree Cartagena Work Phone: [facility] Start: 09-30-2018 End: 09-30-2018 Office outpatient visit 15 minutes Sue Shine Work Phone: [facility] Comment on above: Closed fracture of d istal ends of left radius and ulna with routine healing, subsequent encounter (Primary Dx); Complete tear of left rotator cuff Start: 02-12-2017 End: 02-12-2017 Ambulatory MEME VALLADARES [facility] Procedures Date Procedure Procedure Detail Performing Clinician Start: 07-23-2024 PSA screening JAYLEN SINGH Comment on above: Performed By: #### [id number] #### [place] [id number] Start: 2024 PSA screening JAYLEN SINGH Comment on above: Performed By: #### [id number] #### [place] [id number] Start: 02-21-2022 History of coronary artery bypass grafting History of coronary artery bypass surgery Jennifer PRESSLEY Comment on above: CABG x4- PEREYRA-LAD,SV G-OM1,SVG-OM2, SVG-PDA with Left atrial appendage clip #35 @ [facility] 02/24/22 Start: 02-17-2022 Plain chest X-ray Dr. Matt Cnoroy Work Phone: Start: 02-17-2022 Cardiovascular stres s test using pharmacologic stress agent Dr. Gabriela Conroy Work Phone: Start: 04-23-2021 Coronary artery bypa ss grafts x 4 DR SAMREEN MCKNIGHT MD Arthroscopic repair of rotator cuff DR SAMREEN MCKNIGHT MD Comment on above: RIGHT Colonoscopy DR SAMREEN Avalos MD Nasal septoplasty DR SAMREEN MCKNIGHT MD Prosthetic total arthroplasty of left shoulder DR SAMREEN MCKNIGHT MD Viral antigen assay Dr. Alexis Conroy Work Phone: Plan of Treatment Date Care Activity Detail Author Start: 2029 RSV Vaccine (1 - 1-d ose 75+ series) RSV Vaccine (1 - 1-dose 75+ series) [facility] Start: 05-26-2025 End: 05-26-2025 Patient encounter procedure 05/26/2025 1:00 PM EST Office Visit [facility] [address] [place] [address] Farooq Ashton, OD [address] [place] [address] Eye exam/MMO/ [facility] Comment on above: Eye exam/MMO/ [facility] Start: 02-28-2025 DIABETES SCREEN DIABETES SCREEN [facility] Start: 02-28-2025 Diabetes Screening Diabetes Screenin g [facility] Start: 02-27-2025 DIABETES SCREEN DIABETES SCREEN [facility] Start: 02-21-2025 DIABETES SCREEN DIABETES SCREEN [facility] Start: 12-06-2024 Screening for malign ant neoplasm of colon [facility] Start: 04-23-2024 Advance Directive Discussion Advance Directive Discussion [facility] Start: 12-23-2023 Covid-19 Vaccine ( season) Covid-19 Vaccine ( season) [facility] Start: 12-23-2023 Influenza vaccination Influenza Vacc ine (#1) [facility] Start: 04-23-2022 ADVANCE DIRECTIVE DISCUSSION ADVANCE DIRECTIVE DISCUSSION [facility] Start: 03-27-2022 End: 03-27-2022 Patient encounter procedure 03/27/2022 Office Visit [address] [facility] Start: 02-20-2022 Patient discharge [facility] Work Phone: Start: 02-19-2022 PNEUMOCOCCAL: 65+ (2 - PPSV23 if available, else PCV20) PNEUMOCOCCAL: 65+ (2 - PPSV23 if available, else PCV20) [facility] Start: 02-19-2022 Admission procedure [facility] Work Phone: Start: 02-17-2022 Following clinical pathway protocol [facility] Work Phone: Start: 02-17-[address] [facility] Work Phone: Start: 02-17-2022 Patient education [facility] Work Phone: Start: 02-17-2022 Pulse taking [facility] Work Phone: Start: 02-17-20[address] signs [facility] Work Phone: Start: 02-17-2022 Wound care [facility] Work Phone: Start: 02-17-2022 [facility] Work Phone: Start: 02-17-[address] [facility] Work Phone: Start: 02-17-[address] [facility] Work Phone: Start: 02-17-2022 Preoperative care [facility] Work Phone: Start: 02-17-2022 End: 02-17-2022 [facility] Work Phone: Start: 02-17-2022 Admission procedure [facility] Work Phone: Start: 02-17-2022 Assessment of risk o f venous thromboembolism [facility] Work Phone: Start: 02-17-2022 Insertion of cathete r into peripheral vein [facility] Work Phone: Start: 02-17-[address]22 [address] intake and output [facility] Work Phone: Start: 02-17-[address] [facility] Work Phone: Start: 02-17-2022 Providing care accor ding to standard [facility] Work Phone: Start: 02-17-2022 Patient referral to dietitian [facility] Work Phone: Start: 12-22-2021 Influenza vaccination Sequenti al Influenza Vaccine (#1) [facility] Start: 12-07-2021 End: 12-07-2021 Patient encounter procedure 12/07/2021 Office Visit Cardiology Gabriela Conroy MD [address] [place] [address] Eliz Lockett MD [address] [place] [id number] [facility] Start: 07-16-2021 COVID-19 Vaccine (4 - Booster for Moderna series) COVID-19 Vaccine (4 - Booster for Moderna series) [facility] Start: 05-13-2021 COVID-19 VACCINE (4 - Booster for Moderna series) COVID-19 VACCINE (4 - Booster for Moderna series) [facility] Start: 04-23-2021 ADVANCE DIRECTIVE DISCUSSION ADVANCE DIRECTIVE DISCUSSION [facility] Start: 04-23-2021 DEPRESSION ASSESSMENT DEPRESSION ASS ESSMENT [facility] Start: 07-28-2020 Pneumococcal Vaccine : Age 65+ (2 - PPSV23 or PCV20) Pneumococcal Vaccine: Age 65+ (2 - PPSV23 or PCV20) [facility] Start: 12-23-2019 Influenza vaccinatio n given Sequential Influenza Vaccine (#1) [facility] Start: 2019 Fall risk assessment Falls Risk Asse ssment [facility] Start: 2019 Pneumococcal vaccination Pneum ococcal Vaccine Age 65+ (1 of 2 - PCV13) [facility] Start: 12-22-2018 Influenza vaccinatio n given SEQUENTIAL INFLUENZA VACCINE (Season Ended) [facility] Start: 10-28-2018 End: 10-28-2018 Office Visit 10/28/2018 Office Visit Sports Medicine Sue Shine MD [address] [place] [address] [phone] [facility] Start: 2009 PROSTATE CANCER SCRE ENING DISCUSSION PROSTATE CANCER SCREENING DISCUSSION [facility] Start: 01-09-2004 Administration of he rpes zoster vaccine Zoster Vaccines (1 of 2) [facility] Start: 01-09-2004 Screening for malign ant neoplasm of colon [facility] Start: 01-09-2004 SHINGRIX VACCINE (1 of 2) ERICKSON GRIX VACCINE (1 of 2) [facility] Start: 1999 COLOGUARD (FIT-DNA) COLOGUARD (FIT-D NA) [facility] Start: 1999 Colonoscopy COLONOSCOPY [facility] Start: 1999 COLORECTAL CANCER SCREENING COLORECTAL CANCER SCREENING [facility] Start: [address] COLONOGRAPHY [facility] Start: 1999 FECAL OCCULT BLOOD FECAL OCCULT BLOO D [facility] Start: 1999 Screening for malign ant neoplasm of colon [facility] Start: 1999 [facility] Start: 1989 Lipid panel Lipid Screening [facility] Start: 1989 LIPID SCREEN LIPID SCREEN [facility] Start: 1973 Urine microalbumin profile [facility] Start: 01-09-1972 ANNUAL PCP TEAM ONCOLOGY RESEARCH RN CHRISTIANO DISEASE VISIT ANNUAL PCP TEAM CHRONIC DISEASE VISIT [facility] Start: 01-09-1972 Anxiety Screening Anxiety Screening [facility] Start: 01-09-1972 BP CONTROLLED (<130/80) BP CONTROLLE D (<130/80) [facility] Start: 01-09-1972 Hepatitis B surface antibody level LDL CHOLESTEROL [facility] Start: 01-09-1972 Hepatitis C antibody , confirmatory test Hepatitis C Screening [facility] Start: 01-09-1972 Hepatitis C screening Hepatitis C Sc reening [facility] Start: 01-09-1972 HEPATITIS C SCREENING HEPATITIS C SC REENING [facility] Start: 1970 COVID-19 Vaccine (1 of 2) COVI D-19 Vaccine (1 of 2) [facility] Start: 1966 Adolescent depressio n screening assessment Depression Screening (PHQ9) [facility] Start: 1966 Depression screening using PHQ-9 (Patient Health Questionnaire 9) score Depression Screening (PHQ-2/9) [facility] Start: 1957 History and physical examination, annual for health maintenance Wellness Visit [facility] Start: 1954 Fall risk assessment Falls Risk Asse ssment [facility] Start: 1954 Hepatitis C antibody , confirmatory test HEPATITIS C SCREENING [facility] Start: 1954 Prostate specific an tigen measurement PSA Level [facility] Start: 1954 Screening for malign ant neoplasm of colon [facility] Start: 1954 Tetanus vaccination [facility] Patient referral [facility] Work Phone: [facility] Immunizations Immunization Date Immunization Notes Care Provider Connor mccoy 01-05-2022 influenza, high dose seasonal, preservative-free Veronika Joiner [employer] Work Phone: [facility] 01-05-2022 influenza virus vaccine, unspecified formulation Farooq Nadiaer OD Work Phone: [facility] 03-18-2021 COVID-19 original vaccine, age 12+ yr, monovalent ([employer] - PURPLE TOP) Veronika Joiner [employer] Work Phone: [facility] 02-19-2021 pneumococcal conjuga te vaccine, 13 valent Veronika Joiner [employer] Work Phone: [facility] 09-10-2020 COVID-19 original vaccine, full dose, monovalent (MODERNA) Veronika Joiner [employer] Work Phone: [facility] 07-11-2020 COVID-19 original vaccine, full dose, monovalent (MODERNA) Veronika Joiner [employer] Work Phone: [facility] Payers Date Payer Category Payer Unknown 2024 Unknown [id number] 2024 Self-pay [id number] 2019 Private Health Insurance [id number] 2018 Medicare [id number] 2018 Medicare [id number] 2016 Unknown [id number] 1954 Unknown [id number] 1954 Unknown [id number] 1954 Unknown [id number] 1954 Unknown [id number] 2.16.840.1.782952.3.579.2 .1068 1955 Unknown [id number] 2.16.840.1.080306.3.579.2 .1068 1955 Unknown [id number] 2.16.840.1.888619.3.579.2 .1068 1955 Unknown [id number] 2.16.840.1.480933.3.579.2 .1068 1955 Unknown [id number] 2.16.840.1.383213.3.579.2 .1068 1954 Unknown [id number] 2.16.840.1.791695.3.579.2 .1068 1954 Unknown [id number] 2.16.840.1.104021.3.579.2 .1068 1954 Unknown [id number] 2.16.840.1.635976.3.579.2 .1068 1954 Unknown [id number] 2.16.840.1.617620.3.579.2 .1068 1954 Unknown [id number] 2.16.840.1.956772.3.579.2 .1068 1954 Unknown [id number] 2.16.840.1.915037.3.579.2 .1068 1954 Unknown [id number] 2.16.840.1.111676.3.579.2 .1068 1954 Unknown [id number] 2.16.840.1.353358.3.579.2 .1068 1954 Unknown [id number] 2.16.840.1.194509.3.579.2 .903 1954 Unknown [id number] 2.16.840.1.272670.3.579.2 .1243 1954 Unknown [id number] 2.16.840.1.104436.3.579.2 .1955 Unknown [id number] 2.16.840.1.838481.3.579.2 .62 1954 Unknown [id number] 2.16.840.1.291980.3.579.2 .1955 Unknown [id number] 2.16.840.1.483514.3.579.2 .651 1954 Unknown [id number] 2.16.840.1.367867.3.579.2 .651 1954 Unknown [id number] 2.16.840.1.270327.3.579.2 .651 1955 Unknown [id number] 2.16.840.1.913017.3.579.2 .651 Medicare [id number] Unknown COMMERCIAL COMME RCIAL MISCELLANEOUS [id number] Effective for all dates xxxxxx 1.2.840.198690.1.13.385.2 .7.3.626948.315 Unknown COMMERCIAL COMME RCIAL MISCELLANEOUS [id number] Effective for all dates [id number] 1.2.840.993414.1.13.385.2 .7.3.761631.315 Unknown [id number] Unknown [id number] 2.16.840.1.990199.3.579.2 .462 Unknown [id number] 2.16.840.1.696217.3.579.2 .462 Unknown [id number] 2.16.840.1.182917.3.579.2 .462 Unknown [id number] 2.16.840.1.449597.3.579.2 .462 Unknown [id number] 2.16.840.1.772901.3.579.2 .462 Unknown [id number] 2.16.840.1.820794.3.579.2 .462 Unknown [id number] 2.16.840.1.205918.3.579.2 .462 Social History Date Type Detail Facility Start: 09-30-2018 End: 05-25-2023 Tobacco smoking status AKIS Never smoker [facility] Start: 1955 Sex Assigned At Not on file [facility] Start: 09-30-2018 End: 02-20-2022 Tobacco use and exposure Never used [facility] Start: 09-30-2018 End: 05-20-2024 Alcohol intake Current drinker of alcohol (finding) [facility] Start: 02-17-2022 End: 02-17-2022 Tobacco smoking consumption unknown [facility] Start: 09-30-2018 End: 05-20-2024 Alcohol intake [facility] Start: 1955 Sex Assigned At Male [facility] Start: 02-20-2022 Alcohol Comment ocassionally [facility] Start: 02-10-2022 End: 02-20-2022 Exposure to SARS-CoV-2 (event) Not sure [facility] Start: 05-20-[address] [facility] Tobacco smoking status Never [facility] Sexual Orientation [facility] Start: 03-06-2019 Sex Male (finding) [facility] Medical Equipment Procedure Code Equipment Code Equipment Original Text Equipment Identifier Dates Clip Atriclip Gillinov-Lena 180d Long 35mm 25mm Internal Head - [id number] Start: 02-24-2022 [place] Thk1.65mm P tfe 4x.5in Cardiovascular Sterile - [id number] Start: 02-24-2022 Goals Date Patient Goal Desired Activity /State Functional Status Date Assessment Result Facility 02-20-2022 Functional status Ambulates;Up ad carmen [facility] Work Phone: Mental Status Date Assessment Result Facility 02-20-2022 Cognitive function Voice/Name [facility] Work Phone: Clinical Notes 02-21-2022 to 12-24-2024 Note Date & Type Note Facility 12-24-2024 Note Discharge Instructions Thank you for allowing [facility] to assist you with your healthcare needs. The following is important discharge information regarding your hospital visit. Your Care Team Samreen Mcknight MD Your Diagnosis Atrial fibrillation HTN (hypertension) Leukocytosis Osteoarthritis Status post total right knee replacement What to do next Follow Up Appointments Follow Up with ENRIQUE MOSHER PA-C, Orthopedic When:01/05/2025 03:00 PM EDT Where:[facility] [id number] [place] [id number]- Additional Information: This is your post-op appointment. Follow-up as scheduled. The Following Treatments Have Been Ordered for You Discharge Labs Discharge Outpatient Labwork - Ordered -- CBC, Leukocytosis, follow-up within: 3-5 days, Results Notify to: MARYCARMEN MARIE, GABRIELA Chung, 12/24/24 7:35:00 EDT Discharge Radiology No qualifying data available. Other Therapies No qualifying data available. Post Acute Orders No qualifying data available. Someone Will Contact You Regarding These Home Health Referrals Consult Home Health - PT (Home Health PT Consult) - Ordered -- 12/24/24 7:47:00 EDT, Home Therapy Order: PT Eval & Treat, Reason: Post total knee, Home Therapy Instruction: Weight bearing as tolerated, Right total knee arthroplasty. Weightbearing as tolerated with walker. Progress range of motion and strengthen... Consult Home Health - RN (Home Health RN Consult) - Ordered -- 12/24/24 10:10:00 EDT, Reason: Wound Care, Incision assessment. DRESSING NOT TO BE REMOVED UNTIL POD#5 (12/28/24) Allergies codeine VOMITING, NAUSEA sulfamethoxazole VOMITING, NAUSEA Medications Please ask your primary doctor or pharmacist before taking any other medication not listed, including over the counter drugs, herbal medications, vitamins and or supplements as they may interact with your home medications. What How Much When Why Instructions Last Dose New acetaminophen (acetaminophen 500 mg oral capsule) 2 cap by mouth Three (3) times a day as needed for as needed for pain not to exceed 3000 mg/ day Pickup at [facility] New docusate-senna (Senokot S) 2 tab(s) by mouth Two (2) times a day Take until first bowel movement, then as needed New famotidine (Pepcid 20 mg oral tablet) 1 tab(s) by mouth Once a day Pickup at [facility] New oxyCODONE (oxyCODONE 5 mg oral tablet ( IMMEDIATE release )) See instructions Status post total right knee replacement 1-2 tab(s) Oral q4h, As needed for as needed for pain Pickup at [facility] Changed apixaban (Eliquis 5 mg oral tablet) 1 tab(s) by mouth Two (2) times a day take Eliquis 5 mg twice daily for 12 days postoperatively. After 12 days you can then go back to your normal daily 5 mg Eliquis as prescribed by cardiology Changed metoprolol (Metoprolol Succinate ER 25 mg oral TABLET extended release) 1 tab(s) by mouth Two (2) times a day Changed sertraline (sertraline 100 mg oral tablet) 1.5 tab(s) by mouth Every day Unchanged atorvastatin (atorvastatin 40 mg oral tablet) 1 tab(s) by mouth Every day Unchanged cholecalciferol (Vitamin D3) 25 Microgram by mouth Every day Unchanged hydroCHLOROthiazide (hydroCHLOROthiazide 25 mg oral tablet) 1 tab(s) by mouth Every day Unchanged multivitamin (Vitamin B Complex oral capsule) 1 cap by mouth Every day Pharmacy Information [facility]: [address], [place] [id number] [phone] Please take this list to your next doctor s visit. Bring all medications you take, including over the counter medications, herbals and other supplements with you to your doctor s visit. Patients and families are reminded to discard old lists and to update any records with all medication providers or retail pharmacies. Medication Leaflets apixaban (a PIX a ban) Rohithis What is the most important information I should know about apixaban? Apixaban increases your risk of severe or fatal bleeding, especially if you take certain medicines at the same time (including some gjua-frn-ddxyprt medicines). Tell your doctor about all medicines you have recently used. Call your doctor at once if you have signs of bleeding such as: easy bruising, unusual bleeding, unexpected pain or swelling, feeling very weak or dizzy, bleeding gums, nosebleeds, heavy menstrual bleeding, blood in your urine or stools, coughing up blood or vomit that looks like coffee grounds, or any bleeding that will not stop. Apixaban can cause a very serious blood clot around your spinal cord that can lead to long-term or permanent paralysis. This type of blood clot can occur during a spinal tap or spinal anesthesia (epidural), especially if you have a genetic spinal defect, if you use a spinal catheter, if you've had spinal surgery or repeated spinal taps, or if you use other drugs that can affect blood clotting. Get emergency medical help if you have symptoms of a spinal cord blood clot such as tingling, numbness, or muscle weakness especially in your legs and feet. Do not stop taking apixaban unless your doctor tells you to. Stopping suddenly can increase your risk of blood clot or stroke. What is apixaban? Apixaban is used to lower the risk of stroke caused by a blood clot in people with a heart rhythm disorder called atrial fibrillation. Apixaban is also used after hip or knee replacement surgery to prevent a type of blood clot called deep vein thrombosis (DVT), which can lead to blood clots in the lungs (pulmonary embolism). Apixaban is also used to treat DVT or pulmonary embolism (PE), and to lower your risk of having a repeat DVT or PE. Apixaban may also be used for purposes not listed in this medication guide. What should I discuss with my healthcare provider before taking apixaban? You should not take apixaban if you are allergic to it, or if you have active bleeding from a surgery, injury, or other cause. Apixaban may cause you to bleed more easily, especially if you have a bleeding disorder that is inherited or caused by disease. Tell your doctor if you have an artificial heart valve, or if you have ever had: bleeding problems; antiphospholipid syndrome, especially if you have a triple positive antibody test; or liver or kidney disease. Apixaban can cause a very serious blood clot around your spinal cord if you undergo a spinal tap or receive spinal anesthesia (epidural). This type of blood clot could cause long-term paralysis, and may be more likely to occur if: you have a spinal catheter in place or if a catheter has been recently removed; you have a history of spinal surgery or repeated spinal taps; you have recently had a spinal tap or epidural anesthesia; you take aspirin or other NSAIDs (nonsteroidal anti-inflammatory drugs)--ibuprofen (Advil, Motrin), naproxen (Aleve), diclofenac, indomethacin, meloxicam, and others; or you are using other medicines to treat or prevent blood clots. Taking apixaban may increase the risk of bleeding while you are or during your delivery. Tell your doctor if you are or plan to become . Do not breastfeed. How should I take apixaban? Follow all directions on your prescription label and read all medication guides or instruction sheets. Your doctor may occasionally change your dose. Use the medicine exactly as directed. You may take apixaban with or without food. If you cannot swallow a tablet whole, crush it and mix with water, apple juice, or applesauce. Swallow the mixture right away without chewing. A crushed tablet mixture may also be given through a nasogastric (NG) feeding tube. Read and carefully follow any Instructions for Use provided with your medicine. Apixaban can make it easier for you to bleed, even from a minor injury. Seek medical attention if you have bleeding that will not stop. Tell your doctor if you have a planned surgery or dental work. You may need to stop taking apixaban for a short time. Do not stop taking apixaban unless your doctor tells you to. If you stop taking apixaban for any reason, your doctor may prescribe another medicine to prevent blood clots. Store at room temperature away from moisture and heat. What happens if I miss a dose? Take the missed dose on the same day you remember it. Take your next dose at the regular time and stay on your twice-daily schedule. Do not take two doses at one time. Get your prescription refilled before you run out of medicine completely. What happens if I overdose? Seek emergency medical attention or call the Poison Help line at . What should I avoid while taking apixaban? Avoid activities that may increase your risk of bleeding or injury. Use extra care while shaving or brushing your teeth. What are the possible side effects of apixaban? Get emergency medical help if you have signs of an allergic reaction: hives; chest pain, wheezing, difficult breathing; feeling light-headed; swelling of your face, lips, tongue, or throat. Also seek emergency medical attention if you have symptoms of a spinal blood clot such as tingling, numbness, or muscle weakness especially in your legs and feet. Call your doctor at once if you have: easy bruising, unusual bleeding (nose, mouth, vagina, or rectum), bleeding from wounds or needle injections, any bleeding that will not stop; heavy menstrual bleeding; headache, dizziness, weakness, feeling like you might pass out; urine that looks red, pink, or brown; or black or bloody stools, coughing up blood or vomit that looks like coffee grounds. This is not a complete list of side effects and others may occur. Call your doctor for medical advice about side effects. You may report side effects to FDA at 6-369-EJO-9585. What other drugs will affect apixaban? Sometimes it is not safe to use certain medications at the same time. Some drugs can affect your blood levels of other drugs you take, which may increase side effects or make the medications less effective. Many other drugs (including some xwux-amq-fzfbxos medicines) can increase your risk of bleeding or blood clots. Tell your doctor about all medicines you have recently used, especially: any other medicines to treat or prevent blood clots; a blood thinner such as heparin or warfarin (Coumadin, Jantoven); an antidepressant; or aspirin or other NSAID (nonsteroidal anti-inflammatory drug) used prison. This list is not complete and many other drugs may affect apixaban. This includes prescription and dsfm-fva-tdohvra medicines, vitamins, and herbal products. Not all possible drug interactions are listed here. Where can I get more information? Your pharmacist can provide more information about apixaban. Remember, keep this and all other medicines out of the reach of children, never share your medicines with others, and use this medication only for the indication prescribed. Every effort has been made to ensure that the information provided by [employer]. ('[employer]') is accurate, up-to-date, and complete, but no guarantee is made to that effect. Drug information contained herein may be time sensitive. [employer] information has been compiled for use by healthcare practitioners and consumers in the [place] and therefore [employer] does not warrant that uses outside of the [place] are appropriate, unless specifically indicated otherwise. [employer] drug information does not endorse drugs, diagnose patients or recommend therapy. [employer] drug information is an informational resource designed to assist licensed healthcare practitioners in caring for their patients and/or to serve consumers viewing this service as a supplement to, and not a substitute for, the expertise, skill, knowledge and judgment of healthcare practitioners. The absence of a warning for a given drug or drug combination in no way should be construed to indicate that the drug or drug combination is safe, effective or appropriate for any given patient. [employer] does not assume any responsibility for any aspect of healthcare administered with the aid of information [employer] provides. The information contained herein is not intended to cover all possible uses, directions, precautions, warnings, drug interactions, allergic reactions, or adverse effects. If you have questions about the drugs you are taking, check with your doctor, nurse or pharmacist. Copyright 1087-4301 [employer]. Version: 6.01. Revision Date: 12/14/2020. metoprolol (oral/injection) (me TOE pro lol) Kapspargo Sprinkle, Lopressor, Metoprolol Succinate ER, Metoprolol Tartrate, Toprol-XL What is the most important information I should know about metoprolol? You should not use this medicine if you have a serious heart problem (heart block, sick sinus syndrome, slow heart rate), severe circulation problems, severe heart failure, or a history of slow heart beats that caused fainting. What is metoprolol? Metoprolol is a beta-bibiana that affects the heart and circulation (blood flow through arteries and veins). Metoprolol is used to treat angina (chest pain) and hypertension (high blood pressure). It is also used to lower your risk of or needing to be hospitalized for heart failure. Metoprolol injection is used during the early phase of a heart attack to lower the risk of . Metoprolol may also be used for other purposes not listed in this medication guide. What should I discuss with my healthcare provider before taking metoprolol? You should not use this medicine if you are allergic to metoprolol, or other beta-blockers (atenolol, carvedilol, labetalol, nadolol, nebivolol, propranolol, sotalol, and others), or if you have: a serious heart problem such as heart block, sick sinus syndrome, or slow heart rate; severe circulation problems; severe heart failure (that required you to be in the hospital); or a history of slow heart beats that have caused you to faint. Tell your doctor if you have ever had: asthma, chronic obstructive pulmonary disease (COPD), sleep apnea, or other breathing disorder; diabetes (taking metoprolol may make it harder for you to tell when you have low blood sugar); liver disease; congestive heart failure; problems with circulation (such as Raynaud's syndrome); a thyroid disorder; or pheochromocytoma (tumor of the adrenal gland). Do not give this medicine to a child without medical advice. Tell your doctor if you are or plan to become . It is not known whether metoprolol will harm an unborn baby. However, having high blood pressure during may cause complications such as diabetes or eclampsia (dangerously high blood pressure that can lead to medical problems in both mother and baby). The benefit of treating hypertension may outweigh any risks to the baby. Ask a doctor before using this medicine if you are breast-feeding. Metoprolol can pass into breast milk and may cause dry skin, dry mouth, diarrhea, constipation, or slow heartbeats in your baby. How should I take metoprolol? Follow all directions on your prescription label and read all medication guides or instruction sheets. Your doctor may occasionally change your dose. Use the medicine exactly as directed. Metoprolol should be taken with a meal or just after a meal. Take the medicine at the same time each day. Swallow the capsule whole and do not crush, chew, break, or open it. A Toprol XL tablet can be divided in half if your doctor has told you to do so. Swallow the half-tablet whole, without chewing or crushing. Measure liquid medicine carefully. Use the dosing syringe provided, or use a medicine dose-measuring device (not a kitchen spoon). You will need frequent medical tests, and your blood pressure will need to be checked often. If you need surgery, tell the surgeon ahead of time that you are using metoprolol. You should not stop using metoprolol suddenly. Stopping suddenly may make your condition worse. If you have high blood pressure, keep using this medicine even if you feel well. High blood pressure often has no symptoms. You may need to use metoprolol for the rest of your life. Store at room temperature away from moisture and heat. Metoprolol injection is given as an infusion into a vein. A healthcare provider will give you this injection in a medical setting where your heart and blood pressure can be monitored. Metoprolol injections are given for only a short time before switching you to the oral form of this medicine. What happens if I miss a dose? Skip the missed dose and use your next dose at the regular time. Do not use two doses at one time. What happens if I overdose? Seek emergency medical attention or call the Poison Help line at . What should I avoid while taking metoprolol? Avoid driving or hazardous activity until you know how this medicine will affect you. Your reactions could be impaired. Drinking alcohol can increase certain side effects of metoprolol. What are the possible side effects of metoprolol? Get emergency medical help if you have signs of an allergic reaction: hives; difficulty breathing; swelling of your face, lips, tongue, or throat. Call your doctor at once if you have: very slow heartbeats; a light-headed feeling, like you might pass out; shortness of breath (even with mild exertion), swelling, rapid weight gain; or cold feeling in your hands and feet. Common side effects may include: dizziness, tired feeling; depression, confusion, memory problems; nightmares, trouble sleeping; diarrhea; or mild itching or rash. This is not a complete list of side effects and others may occur. Call your doctor for medical advice about side effects. You may report side effects to FDA at 0-195-MKD-9165. What other drugs will affect metoprolol? Tell your doctor about all your current medicines. Many drugs can affect metoprolol, especially: any other heart or blood pressure medications; epinephrine (Epi-Pen); an antidepressant; an ergot medicine--dihydroergotamine, ergonovine, ergotamine, methylergonovine; or an MAO inhibitor--isocarboxazid, linezolid, phenelzine, rasagiline, selegiline, tranylcypromine. This list is not complete and many other drugs may affect metoprolol. This includes prescription and awlk-ano-kkffkaf medicines, vitamins, and herbal products. Not all possible drug interactions are listed here. Where can I get more information? Your pharmacist can provide more information about metoprolol. Remember, keep this and all other medicines out of the reach of children, never share your medicines with others, and use this medication only for the indication prescribed. Every effort has been made to ensure that the information provided by [employer]. ('[employer]') is accurate, up-to-date, and complete, but no guarantee is made to that effect. Drug information contained herein may be time sensitive. [employer] information has been compiled for use by healthcare practitioners and consumers in the [place] and therefore [employer] does not warrant that uses outside of the [place] are appropriate, unless specifically indicated otherwise. [employer] drug information does not endorse drugs, diagnose patients or recommend therapy. [employer] drug information is an informational resource designed to assist licensed healthcare practitioners in caring for their patients and/or to serve consumers viewing this service as a supplement to, and not a substitute for, the expertise, skill, knowledge and judgment of healthcare practitioners. The absence of a warning for a given drug or drug combination in no way should be construed to indicate that the drug or drug combination is safe, effective or appropriate for any given patient. [employer] does not assume any responsibility for any aspect of healthcare administered with the aid of information [facility] provides. The information contained herein is not intended to cover all possible uses, directions, precautions, warnings, drug interactions, allergic reactions, or adverse effects. If you have questions about the drugs you are taking, check with your doctor, nurse or pharmacist. Copyright 9142-7151 [employer]. Version: 19.01. Revision Date: 11/29/2022. Education Materials [facility] Post-operative Instructions PLEASE FOLLOW [facility] POST-OP INSTRUCTIONS GIVEN WATCH FOR SIGNS OF INFECTION: call the office ([phone]) if experencing any of the following: (Usually appears 36-48 hours after surgery) Increased temperature (101 degrees Fahrenheit or higher) Redness or swelling Increased uncontrolled pain Foul odor or drainage Calf discomfort Significant swelling Or if having any chest pain, shortness of breath, or difficulty breathing or swallowing call the office or go the nearest Emergency Room. If you have any questions, please call your doctor at the number listed on your follow up instructions. Form: [id number]) R: 08/27 Deep Vein Thrombosis Deep vein thrombosis (DVT) is a condition in which a blood clot forms in a deep vein, such as a lower leg, thigh, or arm vein. A clot is blood that has thickened into a gel or solid. This condition is dangerous. It can lead to serious and even life-threatening complications if the clot travels to the lungs and causes a blockage (pulmonary embolism). It can also damage veins in the leg. This can result in leg pain, swelling, discoloration, and sores (post-thrombotic syndrome). What are the causes? This condition may be caused by: A slowdown of blood flow. Damage to a vein. A condition that causes blood to clot more easily, such as an inherited clotting disorder. What increases the risk? The following factors may make you more likely to develop this condition: Being overweight. Being older, especially over age 60. Sitting or lying down for more than four hours. Being in the hospital. Lack of physical activity (sedentary lifestyle). , being in childbirth, or having recently given . Taking medicines that contain estrogen, such as medicines to prevent . Smoking. A history of any of the following: ? Blood clots or a blood clotting disease. ? Peripheral vascular disease. ? Inflammatory bowel disease. ? Cancer. ? Heart disease. ? Genetic conditions that affect how your blood clots, such as Factor V Leiden mutation. ? Neurological diseases that affect your legs (leg paresis). ? A recent injury, such as a car accident. ? Major or lengthy surgery. ? A central line placed inside a large vein. What are the signs or symptoms? Symptoms of this condition include: Swelling, pain, or tenderness in an arm or leg. Warmth, redness, or discoloration in an arm or leg. If the clot is in your leg, symptoms may be more noticeable or worse when you stand or walk. Some people may not develop any symptoms. How is this diagnosed? This condition is diagnosed with: A medical history and physical exam. Tests, such as: ? Blood tests. These are done to check how well your blood clots. ? Ultrasound. This is done to check for clots. ? Venogram. For this test, contrast dye is injected into a vein and X-rays are taken to check for any clots. How is this treated? Treatment for this condition depends on: The cause of your DVT. Your risk for bleeding or developing more clots. Any other medical conditions that you have. Treatment may include: Taking a blood thinner (anticoagulant). This type of medicine prevents clots from forming. It may be taken by mouth, injected under the skin, or injected through an IV (catheter). Injecting clot-dissolving medicines into the affected vein (catheter-directed thrombolysis). Having surgery. Surgery may be done to: ? Remove the clot. ? Place a filter in a large vein to catch blood clots before they reach the lungs. Some treatments may be continued for up to six months. Follow these instructions at home: If you are taking blood thinners: Take the medicine exactly as told by your health care provider. Some blood thinners need to be taken at the same time every day. Do not skip a dose. Talk with your health care provider before you take any medicines that contain aspirin or NSAIDs. These medicines increase your risk for dangerous bleeding. Ask your health care provider about foods and drugs that could change the way the medicine works (may interact). Avoid those things if your health care provider tells you to do so. Blood thinners can cause easy bruising and may make it difficult to stop bleeding. Because of this: ? Be very careful when using knives, scissors, or other sharp objects. ? Use an electric razor instead of a blade. ? Avoid activities that could cause injury or bruising, and follow instructions about how to prevent falls. Wear a medical alert bracelet or carry a card that lists what medicines you take. General instructions Take bqqk-sap-rkqylor and prescription medicines only as told by your health care provider. Return to your normal activities as told by your health care provider. Ask your health care provider what activities are safe for you. Wear compression stockings if recommended by your health care provider. Keep all follow-up visits as told by your health care provider. This is important. How is this prevented? To lower your risk of developing this condition again: For 30 or more minutes every day, do an activity that: ? Involves moving your arms and legs. ? Increases your heart rate. When traveling for longer than four hours: ? Exercise your arms and legs every hour. ? Drink plenty of water. ? Avoid drinking alcohol. Avoid sitting or lying for a long time without moving your legs. If you have surgery or you are hospitalized, ask about ways to prevent blood clots. These may include taking frequent walks or using anticoagulants. Stay at a healthy weight. If you are a woman who is older than age 35, avoid unnecessary use of medicines that contain estrogen, such as some control pills. Do not use any products that contain nicotine or tobacco, such as cigarettes and e-cigarettes. This is especially important if you take estrogen medicines. If you need help quitting, ask your health care provider. Contact a health care provider if: You miss a dose of your blood thinner. Your menstrual period is heavier than usual. You have unusual bruising. Get help right away if: You have: ? New or increased pain, swelling, or redness in an arm or leg. ? Numbness or tingling in an arm or leg. ? Shortness of breath. ? Chest pain. ? A rapid or irregular heartbeat. ? A severe headache or confusion. ? A cut that will not stop bleeding. There is blood in your vomit, stool, or urine. You have a serious fall or accident, or you hit your head. You feel light-headed or dizzy. You cough up blood. These symptoms may represent a serious problem that is an emergency. Do not wait to see if the symptoms will go away. Get medical help right away. Call your local emergency services (911 in the [place] Do not drive yourself to the hospital. Summary Deep vein thrombosis (DVT) is a condition in which a blood clot forms in a deep vein, such as a lower leg, thigh, or arm vein. Symptoms can include swelling, warmth, pain, and redness in your leg or arm. This condition may be treated with a blood thinner (anticoagulant medicine), medicine that is injected to dissolve blood clots,compression stockings, or surgery. If you are prescribed blood thinners, take them exactly as told. This information is not intended to replace advice given to you by your health care provider. Make sure you discuss any questions you have with your health care provider. Document Released: 04/09/2006 Document Revised: 03/22/2018 Document Reviewed: 09/07/2017 [email or web address] Patient Education 2020 archify. Additional Information VACCINATE! IT SAVES LIVES! Members of the community who have not yet received the COVID-19 vaccine and would like to receive it can visit one of [facility] vaccine clinics. There are many vaccine clinic locations within the [facility]. For locations and available times, please visit https://gettheshot.coronavirus.[place].gov/. It is important to note that some COVID mobile vaccine clinics are held outdoors and may be canceled in rainy or stormy conditions. To learn more about pediatric vaccinations (ages 5-11), we invite you to visit the [facility] webpage. https://www.[facility].org/pag es/1672-Unbik-Fahdpokccem-Frequent pr-Aoxdm-Ctbdptwbb.html To learn more about the COVID-19 vaccine, we invite you to visit the CDC website for a list of frequently asked questions.https://www.cdc.gov/vikram navirus/2019-ncov/vaccines/faq.htm diallo [facility] Patient Portal Access Instructions: Stay connected with your healthcare team and access your personal medical information anytime with the [facility] Patient Portal. Please follow the directions below to create your [facility] account: 1.Access the email account you provided upon registration to the hospital/physician office.2.Look for an invitation email from [facility].3.Open the email and access the invitation link: Accept Invitation to [facility].4.Fill in the required hyde to create your account. To access your account, visit [email or web address]. Click the blue button labeled Access Patient Portal and then log in with the username and password that you created in the steps above. You will be able to view your test results, lab results, a summary of your visits, upcoming appointments and more. There is also a convenient messaging option where you can send secure messages to your provider. In addition, you will have the ability to download any documents or summaries to your computer and/or send the information securely to a physician. Remember that your healthcare information is confidential, so carefully consider who you will allow to register on the [facility] Patient Portal for access to your information. You can also access the [facility] Patient Portal on the [facility]. Simply click on Patient Portal and then log into your account. If you would like to receive a full copy of your medical records, please contact the [facility] Medical Records Department by calling [phone], Sunday through Sunday between 8 a.m. and 4:30 p.m. HOW TO SAFELY DISPOSE OF PRESCRIPTION MEDICATIONS Please use one of the following methods to safely dispose of your unused medications. 1.Use a drug disposal kit: the drug disposal pouch allows you to safely discard your old and unused drugs. Ask your nurse to give you one when you are discharged.2.Visit a local take-back location: Many local pharmacies and police departments have programs that collect old and unwanted prescription drugs. Call your local pharmacy or go to http://PublicEngines.Plexisoft/6R7Ji0j to find one close to you.3.Make use of household items: Use cat litter or old coffee grounds to dispose medications if other options are not available. Mix your drugs with these household products, seal them in an airtight container and throw it into the garbage. Call [facility]: [phone] to be sure your drugs can be disposed of in this way. Some medicines may require a different approach.4.Never flush your medications down the toilet. IF YOU HAVE BEEN PRESCRIBED AN OPIOID FOR PAIN If you have been prescribed an opioid (such as hydrocodone, oxycodone or morphine), it is critical to understand the possible side effects and risks of opioid pain medications. Even when taken as directed, opioids can have several side effects including: Tolerance, meaning you might need to take more of a medication for the same pain relief. Nausea, vomiting and/or constipation. Sleepiness, dizziness, dry mouth, confusion, depression or itching. Physical dependence, meaning you have withdrawal symptoms when a medication is stopped, can develop within a few days. KNOW YOUR RESPONSIBILITIES It is important to know exactly how much and how often to take the opioid pain medications you are prescribed. Never take opioids in higher amounts or more often than prescribed. Do not combine opioids with alcohol or other drugs that cause drowsiness, such as benzodiazepines, also known as benzos, including diazepam and alprazolam, muscle relaxants or sleep aids. Never sell or share prescription opioids. This is illegal. Store opioids in a secure place and out of reach of others (including children, family, friends and visitors). The last page of this document has been signed and retained as a CHART COPY. Signatures Patient Education Materials Alejandra Vizcaino Post-op Instruction 11/2016 ([id number]) Deep Vein Thrombosis Medication Leaflets Eliquis, metoprolol succinate 25 mg oral TABLET extended release My discharge plan and instructions have been reviewed and explained to me and I,LISANDRO HYDE understand my current condition and have read and understand these discharge instructions. I have received a written copy of the plan/instructions. If I have questions, I am aware that I should contact my doctor. 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: Date/Time: Relationship to Patient: ___ Witness Name/Signature: Date/Time: [facility] 12-24-2024 Hospital Discharg e instructions Patient Education 12/24/2024 07:31:43 Alejandra Tovar Orth[facility] Post-op Instruction 11/2016 ([id number]) [facility] Post-operative Instructions PLEASE FOLLOW [facility] POST-OP INSTRUCTIONS GIVEN WATCH FOR SIGNS OF INFECTION: call the office ([phone]) if experencing any of the following: (Usually appears 36-48 hours after surgery) Increased temperature (101 degrees Fahrenheit or higher) Redness or swelling Increased uncontrolled pain Foul odor or drainage Calf discomfort Significant swelling Or if having any chest pain, shortness of breath, or difficulty breathing or swallowing call the office or go the nearest Emergency Room. If you have any questions, please call your doctor at the number listed on your follow up instructions. Form: 338A ([id number]) R: 08/2712/23/2024 11:18:27 Deep Vein Thrombosis Deep Vein Thrombosis Deep vein thrombosis (DVT) is a condition in which a blood clot forms in a deep vein, such as a lower leg, thigh, or arm vein. A clot is blood that has thickened into a gel or solid. This condition is dangerous. It can lead to serious and even life-threatening complications if the clot travels to the lungs and causes a blockage (pulmonary embolism). It can also damage veins in the leg. This can result in leg pain, swelling, discoloration, and sores (post-thrombotic syndrome). What are the causes? This condition may be caused by: A slowdown of blood flow. Damage to a vein. A condition that causes blood to clot more easily, such as an inherited clotting disorder. What increases the risk? The following factors may make you more likely to develop this condition: Being overweight. Being older, especially over age 60. Sitting or lying down for more than four hours. Being in the hospital. Lack of physical activity (sedentary lifestyle). , being in childbirth, or having recently given . Taking medicines that contain estrogen, such as medicines to prevent . Smoking. A history of any of the following: ?Blood clots or a blood clotting disease. ?Peripheral vascular disease. ?Inflammatory bowel disease. ?Cancer. ?Heart disease. ?Genetic conditions that affect how your blood clots, such as Factor V Leiden mutation. ?Neurological diseases that affect your legs (leg paresis). ?A recent injury, such as a car accident. ?Major or lengthy surgery. ?A central line placed inside a large vein. What are the signs or symptoms? Symptoms of this condition include: Swelling, pain, or tenderness in an arm or leg. Warmth, redness, or discoloration in an arm or leg. If the clot is in your leg, symptoms may be more noticeable or worse when you stand or walk. Some people may not develop any symptoms. How is this diagnosed? This condition is diagnosed with: A medical history and physical exam. Tests, such as: ?Blood tests. These are done to check how well your blood clots. ?Ultrasound. This is done to check for clots. ?Venogram. For this test, contrast dye is injected into a vein and X-rays are taken to check for any clots. How is this treated? Treatment for this condition depends on: The cause of your DVT. Your risk for bleeding or developing more clots. Any other medical conditions that you have. Treatment may include: Taking a blood thinner (anticoagulant). This type of medicine prevents clots from forming. It may be taken by mouth, injected under the skin, or injected through an IV (catheter). Injecting clot-dissolving medicines into the affected vein (catheter-directed thrombolysis). Having surgery. Surgery may be done to: ?Remove the clot. ?Place a filter in a large vein to catch blood clots before they reach the lungs. Some treatments may be continued for up to six months. Follow these instructions at home: If you are taking blood thinners: Take the medicine exactly as told by your health care provider. Some blood thinners need to be taken at the same time every day. Do not skip a dose. Talk with your health care provider before you take any medicines that contain aspirin or NSAIDs. These medicines increase your risk for dangerous bleeding. Ask your health care provider about foods and drugs that could change the way the medicine works (may interact). Avoid those things if your health care provider tells you to do so. Blood thinners can cause easy bruising and may make it difficult to stop bleeding. Because of this: ?Be very careful when using knives, scissors, or other sharp objects. ?Use an electric razor instead of a blade. ?Avoid activities that could cause injury or bruising, and follow instructions about how to prevent falls. Wear a medical alert bracelet or carry a card that lists what medicines you take. General instructions Take wvsg-fum-amfsgpx and prescription medicines only as told by your health care provider. Return to your normal activities as told by your health care provider. Ask your health care provider what activities are safe for you. Wear compression stockings if recommended by your health care provider. Keep all follow-up visits as told by your health care provider. This is important. How is this prevented? To lower your risk of developing this condition again: For 30 or more minutes every day, do an activity that: ?Involves moving your arms and legs. ?Increases your heart rate. When traveling for longer than four hours: ?Exercise your arms and legs every hour. ?Drink plenty of water. ?Avoid drinking alcohol. Avoid sitting or lying for a long time without moving your legs. If you have surgery or you are hospitalized, ask about ways to prevent blood clots. These may include taking frequent walks or using anticoagulants. Stay at a healthy weight. If you are a woman who is older than age 35, avoid unnecessary use of medicines that contain estrogen, such as some control pills. Do not use any products that contain nicotine or tobacco, such as cigarettes and e-cigarettes. This is especially important if you take estrogen medicines. If you need help quitting, ask your health care provider. Contact a health care provider if: You miss a dose of your blood thinner. Your menstrual period is heavier than usual. You have unusual bruising. Get help right away if: You have: ?New or increased pain, swelling, or redness in an arm or leg. ?Numbness or tingling in an arm or leg. ?Shortness of breath. ?Chest pain. ?A rapid or irregular heartbeat. ?A severe headache or confusion. ?A cut that will not stop bleeding. There is blood in your vomit, stool, or urine. You have a serious fall or accident, or you hit your head. You feel light-headed or dizzy. You cough up blood. These symptoms may represent a serious problem that is an emergency. Do not wait to see if the symptoms will go away. Get medical help right away. Call your local emergency services (911 in the [place] Do not drive yourself to the hospital. Summary Deep vein thrombosis (DVT) is a condition in which a blood clot forms in a deep vein, such as a lower leg, thigh, or arm vein. Symptoms can include swelling, warmth, pain, and redness in your leg or arm. This condition may be treated with a blood thinner (anticoagulant medicine), medicine that is injected to dissolve blood clots,compression stockings, or surgery. If you are prescribed blood thinners, take them exactly as told. This information is not intended to replace advice given to you by your health care provider. Make sure you discuss any questions you have with your health care provider. Document Released: 04/09/2006 Document Revised: 03/22/2018 Document Reviewed: 09/07/2017 [email or web address] Patient Education 2019 archify. Follow Up Care 12/05/2024 10:55:05 With:ENRIQUE MOSHER PA-C, Orthopedic Address: [facility] [address] [place] [id number]- When:01/05/2025 15:00:00 Comments:This is your post-op appointment. Follow-up as scheduled. [facility] 12-24-2024 Anesthesiology Consult note Patient: LISANDRO HYDE Age: 69 years Sex: Male : 1955 Associated Diagnoses: None Author: CHRISTINA ANDERSON APRN-CASTINGS DRAFTER Assessment Postanesthesia assessment Vitals: Vital signs from flowsheet : Vital Signs 12/24/2024 8:03 EDT Respiratory Rate 16 br/min 12/24/2024 6:22 EDT Temperature Oral 36.6 DegC Heart Rate Monitored 64 bpm Respiratory Rate 18 br/min Systolic Blood Pressure Non-Invasive 110 mmHg Diastolic Blood Pressure Non-Invasive 63 mmHg 12/24/2024 4:02 EDT Temperature Oral 36.7 DegC Peripheral Pulse Rate 67 bpm Respiratory Rate 18 br/min Systolic Blood Pressure Non-Invasive 111 mmHg Diastolic Blood Pressure Non-Invasive 79 mmHg 12/23/2024 23:01 EDT Temperature Oral 36.4 DegC Peripheral Pulse Rate 69 bpm Respiratory Rate 20 br/min Systolic Blood Pressure Non-Invasive 105 mmHg Diastolic Blood Pressure Non-Invasive 72 mmHg 12/23/2024 19:57 EDT Temperature Oral 36.8 DegC Peripheral Pulse Rate 75 bpm Respiratory Rate 20 br/min Systolic Blood Pressure Non-Invasive 103 mmHg Diastolic Blood Pressure Non-Invasive 92 mmHg HI 12/23/2024 16:01 EDT Apical Heart Rate 68 bpm 12/23/2024 15:00 EDT Temperature Oral 36.4 DegC Heart Rate Monitored 78 bpm Respiratory Rate 19 br/min Systolic Blood Pressure Non-Invasive 115 mmHg Diastolic Blood Pressure Non-Invasive 76 mmHg 12/23/2024 10:25 EDT Temperature Axillary 36.1 DegC Heart Rate Monitored 78 bpm Respiratory Rate 19 br/min Systolic Blood Pressure Non-Invasive 118 mmHg Diastolic Blood Pressure Non-Invasive 68 mmHg 12/23/2024 9:45 EDT Heart Rate Monitored 83 bpm Respiratory Rate 19 br/min Systolic Blood Pressure Non-Invasive 124 mmHg Diastolic Blood Pressure Non-Invasive 73 mmHg 12/23/2024 9:40 EDT Heart Rate Monitored 90 bpm Respiratory Rate 23 br/min HI Systolic Blood Pressure Non-Invasive 124 mmHg Diastolic Blood Pressure Non-Invasive 77 mmHg 12/23/2024 9:35 EDT Heart Rate Monitored 83 bpm Respiratory Rate 16 br/min Systolic Blood Pressure Non-Invasive 117 mmHg Diastolic Blood Pressure Non-Invasive 57 mmHg LOW 12/23/2024 9:30 EDT Heart Rate Monitored 89 bpm Respiratory Rate 18 br/min Systolic Blood Pressure Non-Invasive 123 mmHg Diastolic Blood Pressure Non-Invasive 76 mmHg 12/23/2024 9:25 EDT Heart Rate Monitored 76 bpm Respiratory Rate 16 br/min Systolic Blood Pressure Non-Invasive 121 mmHg Diastolic Blood Pressure Non-Invasive 72 mmHg 12/23/2024 9:20 EDT Heart Rate Monitored 75 bpm Respiratory Rate 22 br/min HI Systolic Blood Pressure Non-Invasive 112 mmHg Diastolic Blood Pressure Non-Invasive 77 mmHg 12/23/2024 9:15 EDT Heart Rate Monitored 77 bpm Respiratory Rate 22 br/min HI Systolic Blood Pressure Non-Invasive 114 mmHg Diastolic Blood Pressure Non-Invasive 73 mmHg 12/23/2024 9:10 EDT Heart Rate Monitored 77 bpm Respiratory Rate 15 br/min Systolic Blood Pressure Non-Invasive 135 mmHg Diastolic Blood Pressure Non-Invasive 86 mmHg 12/23/2024 9:05 EDT Heart Rate Monitored 80 bpm Respiratory Rate 18 br/min Systolic Blood Pressure Non-Invasive 111 mmHg Diastolic Blood Pressure Non-Invasive 74 mmHg 12/23/2024 9:00 EDT Heart Rate Monitored 76 bpm Respiratory Rate 13 br/min LOW Systolic Blood Pressure Non-Invasive 113 mmHg Diastolic Blood Pressure Non-Invasive 69 mmHg 12/23/2024 8:55 EDT Temperature Temporal Artery 36.5 DegC Heart Rate Monitored 74 bpm Respiratory Rate 20 br/min Systolic Blood Pressure Non-Invasive 116 mmHg Diastolic Blood Pressure Non-Invasive 73 mmHg 12/23/2024 8:50 EDT Heart Rate Monitored 74 bpm bpm Respiratory Rate - Anes 19 br/min br/min 12/23/2024 8:45 EDT Heart Rate Monitored 76 bpm bpm Respiratory Rate - Anes 17 br/min br/min Systolic Blood Pressure Non-Invasive 104 mmHg mmHg Diastolic Blood Pressure Non-Invasive 55 mmHg mmHg 12/23/2024 8:40 EDT Heart Rate Monitored 76 bpm bpm Respiratory Rate - Anes 24 br/min br/min Systolic Blood Pressure Non-Invasive 107 mmHg mmHg Diastolic Blood Pressure Non-Invasive 92 mmHg mmHg 12/23/2024 8:35 EDT Heart Rate Monitored 76 bpm bpm Respiratory Rate - Anes 3 br/min br/min Systolic Blood Pressure Non-Invasive 109 mmHg mmHg Diastolic Blood Pressure Non-Invasive 63 mmHg mmHg 12/23/2024 8:31 EDT Systolic Blood Pressure Non-Invasive 104 mmHg mmHg Diastolic Blood Pressure Non-Invasive 65 mmHg mmHg 12/23/2024 8:30 EDT Heart Rate Monitored 76 bpm bpm Respiratory Rate - Anes 20 br/min br/min 12/23/2024 8:25 EDT Heart Rate Monitored 79 bpm bpm Respiratory Rate - Anes 12 br/min br/min Systolic Blood Pressure Non-Invasive 100 mmHg mmHg Diastolic Blood Pressure Non-Invasive 59 mmHg mmHg 12/23/2024 8:20 EDT Heart Rate Monitored 78 bpm bpm Respiratory Rate - Anes 12 br/min br/min (Modified) Systolic Blood Pressure Non-Invasive 108 mmHg mmHg Diastolic Blood Pressure Non-Invasive 56 mmHg mmHg 12/23/2024 8:15 EDT Heart Rate Monitored 79 bpm bpm Respiratory Rate - Anes 22 br/min br/min Systolic Blood Pressure Non-Invasive 110 mmHg mmHg Diastolic Blood Pressure Non-Invasive 70 mmHg mmHg 12/23/2024 8:10 EDT Heart Rate Monitored 78 bpm bpm Respiratory Rate - Anes 11 br/min br/min (Modified) Systolic Blood Pressure Non-Invasive 100 mmHg mmHg Diastolic Blood Pressure Non-Invasive 62 mmHg mmHg 12/23/2024 8:05 EDT Heart Rate Monitored 79 bpm bpm Respiratory Rate - Anes 5 br/min br/min Systolic Blood Pressure Non-Invasive 86 mmHg mmHg Diastolic Blood Pressure Non-Invasive 47 mmHg mmHg 12/23/2024 8:00 EDT Heart Rate Monitored 80 bpm bpm Respiratory Rate - Anes 11 br/min br/min Systolic Blood Pressure Non-Invasive 108 mmHg mmHg Diastolic Blood Pressure Non-Invasive 58 mmHg mmHg 12/23/2024 7:55 EDT Heart Rate Monitored 77 bpm bpm Respiratory Rate - Anes 13 br/min br/min Systolic Blood Pressure Non-Invasive 112 mmHg mmHg Diastolic Blood Pressure Non-Invasive 71 mmHg mmHg 12/23/2024 7:50 EDT Heart Rate Monitored 74 bpm bpm Respiratory Rate - Anes 18 br/min br/min Systolic Blood Pressure Non-Invasive 109 mmHg mmHg Diastolic Blood Pressure Non-Invasive 59 mmHg mmHg 12/23/2024 7:45 EDT Heart Rate Monitored 71 bpm bpm Respiratory Rate - Anes 19 br/min br/min Systolic Blood Pressure Non-Invasive 97 mmHg mmHg Diastolic Blood Pressure Non-Invasive 68 mmHg mmHg 12/23/2024 7:40 EDT Heart Rate Monitored 72 bpm bpm Respiratory Rate - Anes 23 br/min br/min Systolic Blood Pressure Non-Invasive 110 mmHg mmHg Diastolic Blood Pressure Non-Invasive 57 mmHg mmHg 12/23/2024 7:35 EDT Heart Rate Monitored 68 bpm bpm Respiratory Rate - Anes 15 br/min br/min Systolic Blood Pressure Non-Invasive 96 mmHg mmHg Diastolic Blood Pressure Non-Invasive 47 mmHg mmHg 12/23/2024 7:30 EDT Heart Rate Monitored 64 bpm bpm Respiratory Rate - Anes 7 br/min br/min Systolic Blood Pressure Non-Invasive 88 mmHg mmHg Diastolic Blood Pressure Non-Invasive 51 mmHg mmHg 12/23/2024 7:25 EDT Heart Rate Monitored 67 bpm bpm Respiratory Rate - Anes 16 br/min br/min Systolic Blood Pressure Non-Invasive 89 mmHg mmHg Diastolic Blood Pressure Non-Invasive 52 mmHg mmHg 12/23/2024 7:22 EDT Systolic Blood Pressure Non-Invasive 144 mmHg mmHg Diastolic Blood Pressure Non-Invasive 123 mmHg mmHg 12/23/2024 7:20 EDT Respiratory Rate - Anes 15 br/min br/min (Modified) Systolic Blood Pressure Non-Invasive 144 mmHg mmHg 12/23/2024 7:15 EDT Respiratory Rate - Anes 19 br/min br/min (Modified) Systolic Blood Pressure Non-Invasive 142 mmHg mmHg Diastolic Blood Pressure Non-Invasive 105 mmHg mmHg 12/23/2024 5:41 EDT Temperature Temporal Artery 36.8 DegC Apical Heart Rate 65 bpm Respiratory Rate 19 br/min Systolic Blood Pressure Non-Invasive 129 mmHg Diastolic Blood Pressure Non-Invasive 83 mmHg . Mental status: at preoperative baseline. Respiratory function: lungs are clear to auscultation, respirations are non-labored. Respiratory support: none. CV function: Normal rate, Regular rhythm. Cardiovascular support: none. Pain: Post op control oral analgesic. Nausea status: denies nausea. Postoperative hydration status: within normal limits. Digitally Signed by CHRISTINA ANDERSON on 12/24/2024 08:29 AM [facility] 12-24-2024 Note Date of Service December 24, 2024 Subjective The patient was sitting in bed upon examination. Patient denies any chest pain, shortness of breath, dizziness, lightheadedness, nausea or vomiting, or calf pain. No adverse overnight events. Pain has been controlled on medications. Patient overall is doing well this morning. He has no complaints. He has been up to the bathroom. Patient does wish to have some home health physical therapy initially for the first 1 to 2 weeks postoperatively. After that he will then go to outpatient therapy. Objective Vitals and Measurements T: 36.6 C (Oral) TMIN: 36.1 C (Axillary) TMAX: 36.8 C (Oral) HR: 64 (Monitored) RR: 18 BP: 110/63 SpO2: 95% HT: 175.2 cm WT: 83.6 kg BMI: 27.24 Intake and Output Last 24 hours Intake Medication 307.50 Administration Information 1752.67 Supplement Intake 240.00 Output Intra-Op EBL 150.00 Urine Count 4.00 Total Summary Total Intake 2300.17 Total Output 150.00 Fluid Balance 2150.17 Physical Exam Vital signs stable, afebrile SCD's and RODRICK Hose in place bilaterally Patient is able to plantarflex and dorsiflex actively Sensation is intact to saphenous, sural, superficial and deep peroneal, and tibial distribution Dressings are clean dry and intact Negative signs and symptoms of DVT, negative Homans bilaterally Weight Dosing Weight: 83.6 kg (12/23/24) Dosing Weight: 83.6 kg (12/23/24) Medications Medications (24) Active Scheduled: (13) acetaminophen 500 mg Tablet 1,000 mg 2 tab(s), Oral, q8h apixaban 5 mg tablet 5 mg 1 tab(s), Oral, BID atorvastatin 40 mg tablet 40 mg 1 tab(s), Oral, Daily bisacodyl 5 mg EC tablet 10 mg 2 tab(s), Oral, Once docusate sodium 100 mg Capsule 100 mg 1 cap(s), Oral, BID docusate-senna (Senokot S) 50 mg-8.6 mg Tablet 2 tab(s), Oral, BID famotidine 20 mg tablet 20 mg 1 tab(s), Oral, qDay hydrochlorothiazide 25 mg tablet 25 mg 1 tab(s), Oral, Daily magnesium hydroxide 8% Suspension 30 mL UD 30 mL, Oral, Daily metoprolol succinate 25 mg ER tablet 25 mg 1 tab(s), Oral, BIDM multivitamin (Myadec) with minerals Therapeutic Multiple Vitamins with Minerals Tablet 1 tab(s), Oral, qDayM ondansetron 2 mg/ 1 mL 2 mL INJ 4 mg 2 mL, IV Push, q8h sertraline 50 mg tablet 150 mg 3 tab(s), Oral, qDay Continuous: (1) Lactated Ringers 1,000 mL 1,000 mL, Intravenous, 100 mL/hr PRN: (10) acetaminophen 325 mg Tablet 650 mg 2 tab(s), Oral, q4h diphenhydramine 25 mg tablet 25 mg 1 tab(s), Oral, q6h diphenhyDRAMINE 50 mg/mL (1 mL) INJ 25 mg 0.5 mL, IV Push, q6h ketorolac 30 mg/mL (1 mL) vial 15 mg 0.5 mL, IV Push, q6h morphine 4 mg/mL 1mL INJ 2 mg 0.5 mL, IV Push, q1h ondansetron 2 mg/ 1 mL 2 mL INJ 4 mg 2 mL, IV Push, q8h oxycodone 5 mg tablet (immediate release) 10 mg 2 tab(s), Oral, q4h oxycodone 5 mg tablet (immediate release) 5 mg 1 tab(s), Oral, q4h prochlorperazine 10 mg/2 mL vial 5 mg 1 mL, IV Push, q6h sodium biphosphate-sodium phosphate 19 gm-7 gm Enema 133 mL, Rectal, qDay Lab Results 09/03 05:18 WBC: 20.0 H Hgb: 11.1 L Hct: 33.2 L Platelet: 219 Neutrophil %: 84.0 H Glucose Level: 116 H Sodium Level: 137 Potassium Level: 3.9 BUN: 25 H Creatinine Lvl (s): 0.86 EKG No qualifying data available. Assessment/Plan 1. Status post robotic assisted right total knee arthroplasty postop day #1 2. Continue pain medications: Tylenol and oxycodone. We are avoiding nonsteroidal anti-inflammatories due to the anticoagulation. 3. DVT prophylaxis: Patient currently is on Eliquis once daily for atrial fibrillation. We did discuss again postoperatively he will be on Eliquis 5 mg twice daily for 12 days. After 12 days he can then go back to his normal once daily Eliquis. He denies past history of DVT or pulmonary embolism. He will continue with RODRICK hose at home for 2 weeks postoperatively. 4. Physical therapy: Weightbearing as tolerated with walker 5. H & H: 11.1/33.2, asymptomatic. Postoperative drop in hemoglobin from surgery without intraoperative complications. At this time there is no need for treatment. 6. Reactive Leukocytosis: currently 20.0, afebrile. Patient did receive decadron intra-operatively. No clinical signs of infection. Preoperatively patient had mildly elevated white blood cell count at 12.3. Plan will be for patient to have repeat CBC in 3 to 5 days to make sure white count is trending down. Lab order will be placed on chart. Patient voiced understanding and agreement 7. Encouraged incentive spirometry 8. Continue postoperative medical management per medicine 9. Postoperative constipation: Discussed with the patient to continue stool softener until first bowel movement. After first bowel movement patient can then take as needed. They were also instructed that if they are not able to have a bowel movement within 3 days they are to contact our office for change of medication. Patient voiced understanding. 10. Disposition: Plan will be for probable discharge home today as long as patient remains medically stable, tolerates therapy, and pain is adequately controlled. We did discuss the block postoperatively in which I do feel it is still providing pain relief at this time. Patient would like his prescriptions E scribed to [facility] pharmacy. He will follow-up per postoperative instructions. I will have the care management team assist him in setting up home health physical therapy. Patient was instructed upon discharge he will contact our office with any concerns or questions. I have reviewed the [place] Automated Rx Reporting System (OARRS) report for this patient for refill pattern and other prescriber involvement as part of the appropriate surveillance for the provision of acute and chronic controlled medications. The report was requested and reviewed on the date of this entry, and was considered in the prescribing process This dictation was created using voice recognition software. Phonetic and/or grammatical errors may exist. Digitally Signed by ENRIQUE MOSHER PA-C on 12/24/2024 07:31 AM [facility] 12-23-2024 Note Exam Date Time Procedure Performing Provider Status 12/23/24 9:12 AM XR Knee 1 or 2 Views Right LEELA BARRIOS MD; Auth (Verified) [id number] ORIGINAL EXAMINATION: POSTOPERATIVE KNEE TECHNIQUE: 2 views of theright knee were obtained. COMPARISON: CT right knee 12/11/2024 HISTORY: ORDERING SYSTEM PROVIDED HISTORY: Reason for Exam: Status Post Arthroplasty FINDINGS: There is normal mineralization. No acute fracture or dislocation is seen. The patient is status post right knee replacement with appropriate positioning of the prosthesis. There are postsurgical changes with a small joint effusion. IMPRESSION: Status post right knee replacement with appropriate positioning of the prosthesis. Interpreted by: Maverick Barrios MD Preliminary Report By: Maverick Barrios MD Electronically signed By Maverick Barrios MD Dictated Date: 12/23/2024 9:34:23 AM Prelim Date: 12/23/2024 9:35:18 AM Sign Date: 12/23/2024 9:35:18 AM Ordering Provider: SAMREEN MCKNIGHT [facility]09-02-2025 Note* Exam Date Time Procedure Performing Provider Status 12/23/24 7:19 AM US Anesthesia Block Auth ( Verified) [id number] ORIGINAL Images acquired, not reported on this accession number. [facility]09-02-2025 Anesthesiology Consult note Patient: LISANDRO HYDE Age: 69 years Sex: Male : 1955 Associated Diagnoses: None Author: CHRISTINA ANDERSON APRN-CASTINGS DRAFTER Preoperative Information Anesthesia history Patient's history: negative. Family's history: negative. Health Status Allergies: Allergic Reactions (Selected) Severity Not Documented Codeine- Nausea and vomiting. Sulfamethoxazole- Nausea and vomiting., Allergies (2) ActiveSeverityReaction codeineNAUSEA, VOMITING sulfamethoxazoleNAUSEA, VOMITING Current medications: (Selected) Inpatient Medications Ordered Bicitra: 30 mL, Oral, PREOP pharm Cyklokapron IVPB: 2,000 mg, 20 mL, 0 mL/hr, Topical (INT), PREOP pharm Decadron: 10 mg, 1 mL, IV Push, AsDirected LR 1,000 mL: 20 mL/hr, Intravenous, Stop: 12/23/24 23:59:00 EDT Naropin 25 mg + Toradol 15 mg + morphine 2.5 mg + EPINEPHrine 0.3 m mg, 5 mL, mL/hr, Other, PREOP pharm Naropin 25 mg + Toradol 15 mg + morphine 2.5 mg + EPINEPHrine 0.3 m mg, 5 mL, mL/hr, Other, PREOP pharm ceFAZolin: 2 gram(s), 200 mL/hr, IV Piggyback, PREOP pharm Documented Medications Documented Eliquis 5 mg oral tablet: 5 mg, 1 tab(s), Oral, Daily, 0 Refill(s) Metoprolol Succinate ER 25 mg oral TABLET extended release: 25 mg, 1 tab(s), Oral, qDay, 30 tab(s),0 Refill(s) Vitamin B Complex oral capsule: 1 cap(s), Oral, Daily, 90 cap(s), 0 Refill(s) Vitamin D3: 25 mcg, 1 tab(s), Oral, Daily, 0 Refill(s) atorvastatin 40 mg oral tablet: 40 mg, 1 tab(s), Oral, Daily, 0 Refill(s) hydroCHLOROthiazide 25 mg oral tablet: 25 mg, 1 tab(s), Oral, Daily, 0 Refill(s) sertraline 100 mg oral tablet: 100 mg, 1 tab(s), Oral, Daily, 0 Refill(s), Medications (7) Active Scheduled: (6) ceFAZolin 2 gram(s), IV Piggyback, PREOP pharm citric acid-sodium citrate 334 mg-500 mg/5 mL (30 mL) Barbie UD 30 mL, Oral, PREOP pharm dexamethasone 10 mg/mL (1mL) SDV 10 mg 1 mL, IV Push, AsDirected ropivacaine 25 mg + ketorolac 15 mg + morphine 2.5 mg + epinephrine 0.3 mg 25 mg 5 mL, Other, PREOPpharm ropivacaine 25 mg + ketorolac 15 mg + morphine 2.5 mg + epinephrine 0.3 mg 25 mg 5 mL, Other, PREOPpharm tranexamic acid 2,000 mg 20 mL, Topical (INT), PREOP pharm Continuous: (1) Lactated Ringers 1,000 mL 1,000 mL, Intravenous, 20 mL/hr PRN: (0) Problem list: Active Problems (10) Collar bone fracture COPD (chronic obstructive pulmonary disease) Depression DVT (deep venous thrombosis) Hypertension Kidney stone OA (osteoarthritis) PAF (paroxysmal atrial fibrillation) Pneumothorax Rib fractures Histories Past Medical History: No active or resolved past medical history items have been selected or recorded. Family History: Cancer Mother Arthritis Mother Procedure history: CABG x 4 - Coronary artery bypass grafts x 4 ([id number]) in 2021 at 67 Years. Colonoscopy ([id number]). Arthroscopic repair of rotator cuff ([id number]). Comments: 06/03/2019 15:07 Misti Barry RN RIGHT Prosthetic total arthroplasty of left shoulder ([id number]). Nasal septoplasty ([id number]). Social History: Social & Psychosocial Habits Alcohol 12/11/2024 Use: Current Type: Beer Frequency: Daily Comment: DRINKS 1-2 BEERS DAILY - 05/23/2019 09:49 - Leola Hardin RN Substance Abuse 12/11/2024 Use: Past Type: Marijuana Frequency: Daily Started at age: 17 Years Stopped at age: 61 Years Tobacco 12/11/2024 Tobacco Use: Never (less than 100 in l Smokeless tobacco use: Never Home/Environment 12/11/2024 Domestic Concerns None Living situation: Home/Independent Lives In 1st floor bathroom, 1st floor bedroom, Single level home Current Home Treatments None Special Services and Community Resources None Spouse Name ELIN (Rebeka) Marital Status of Patient if Patient Independent Adult: Nutrition/Health 12/11/2024 Type of diet: Regular Appetite Good Eating Difficulties None Caffeine intake amount: 3 CUPS COFFEE DAILY, 2 POPS WEEKLY Physical Examination Vital Signs 12/23/2024 5:41 EDT Temperature Temporal Artery 36.8 DegC Apical Heart Rate 65 bpm Respiratory Rate 19 br/min Systolic Blood Pressure Non-Invasive 129 mmHg Diastolic Blood Pressure Non-Invasive 83 mmHg Vital Signs (last 24 hrs) Last Charted Temp Bpcywaah87.8 DegC (DEC 23 05:41) Heart Rate Dmcnus56 bpm (DEC 23 05:41) NGT868 mmHg (DEC 23 05:41) DBP83 mmHg (DEC 23 05:41) Measurements from flowsheet : Measurements 12/23/2024 5:41 EDT Height 175.2 cm Height in inches 69 inch(es) Admission Weight 83.6 kg Weight Lbs 183.9 lb [place] Body Weight 70.65 kg Admission Body Mass Index 27.24 m2 Pain assessment: Pain Assessment 12/23/2024 5:56 EDT Primary Pain Intensity 7 12/23/2024 5:41 EDT Primary Pain Location Knee Primary Pain Laterality Right Primary Pain Intensity 7 Pain Scale Type 0-10 Pain scale . General: Alert and oriented. Airway: Normal temporomandibular joint mobility. Mallampati classification: II (soft palate, fauces, uvula visible). Dentition Evaluation: Denies loose/chipped teeth. Respiratory: Lungs are clear to auscultation, Respirations are non-labored. Cardiovascular: Normal rate, Regular rhythm. Neurologic: Alert, Oriented. Review / Management Results review: No qualifying data available , Lab results 12/23/2024 6:17 EDT SN - Preop - CTm Pt Ready for OR/Proced 12/23/2024 6:12 12/23/2024 6:12 EDT SN - Preop - CTm Pt in SDS Room 12/23/2024 5:32 12/23/2024 5:56 EDT Primary Pain Intensity 7 celecoxib 400 mg mg oxyCODONE 10 mg mg Lactated Ringers Injection 1,000 mL mL 12/23/2024 5:53 EDT famotidine 20 mg mg 12/23/2024 5:50 EDT Continuous IV Infusions LR Antecubital Left 12/23/2024 20 gauge Peripheral IV Activity: Insert new site Peripheral IV Dressing Condition: Clean, Dry, Intact Peripheral IV Dressing Activity: Applied, Transparent dressing Peripheral IV Line Status/Patency: Flushes easily, Continuous infusion Peripheral IV Site Condition: No complications Peripheral IV Equipment: Extension set, PRN Adaptor 12/23/2024 5:41 EDT Height 175.2 cm Height in inches 69 inch(es) Admission Weight 83.6 kg Weight Lbs 183.9 lb [place] Body Weight 70.65 kg Admission Body Mass Index 27.24 m2 Temperature Temporal Artery 36.8 DegC Apical Heart Rate 65 bpm Respiratory Rate 19 br/min Systolic Blood Pressure Non-Invasive 129 mmHg Diastolic Blood Pressure Non-Invasive 83 mmHg Primary Pain Location Knee Primary Pain Laterality Right Primary Pain Intensity 7 Pain Scale Type 0-10 Pain scale Heart Rhythm Regular Respirations Unlabored Respiratory Pattern Regular All Lobes Breath Sounds Clear Oxygen Therapy Room air Oxygen Saturation 97 % Abdomen Description Non-distended Bowel Sounds All Quadrants Present Urinary Elimination Voiding, no difficulties Skin Description [place], Normal for ethnicity, Dry Skin Temperature Warm Skin Integrity Intact Neurological Symptoms Patient denies Extremity Movement Equal Characteristics of Speech Clear Level of Consciousness Alert Strength All Extremities Strong Tone All Extremities Normal Sensation All Extremities Intact Affect/Behavior Appropriate Orientation Oriented x 4 Activity Status ADL Awake Sequential Compression Device left knee high applied/on Antiembolism Stocking On/Re-applied left thigh high Standard Safety ID band on, Allergy Band on, Call device within reach, Bed in low position, Wheels locked, Upper/Half-Length side-rails up, Safety level maintained, Non-Slip footwear 12/23/2024 5:39 EDT Designated Person #1 We May Share PHI ELIN (REBEKA) MARY ELLEN [phone] Designated Person #1 Relationship Spouse Designated Person #2 We May Share PHI VIKKI MORANESTHER [phone] Designated Person #2 Relationship Friend Privacy Restrictions Requested None Status N/A IV Present Present Sensory Deficits None Sleep Apnea Snore Yes Sleep Apnea Tired No Sleep Apnea Obstruction No Sleep Apnea Pressure Yes Sleep Apnea BMI No Sleep Apnea Age Yes Sleep Apnea Neck No Sleep Apnea Gender Yes Sleep Apnea Score 4 Diagnosed With Sleep Apnea No Advanced Directives Yes Advance Directive Type [place] Durable Power of Outpatient Physical Therapist [place] Declaration (Living Will) Advance Directive Location Patient instructed to bring in copy Infectious Disease Symptoms Patient states no symptoms Infectious Disease Recent Exposure No Alcohol and Drug Use No Employee of Institutional Living No Health Care Employee No History of Exposure to TB No History of Positive Chest X-Ray for TB No History of Positive TB Skin Test No Homeless No Known Immunosuppression No Recent Immigrant No Resident of Institutional Living No Bloody Sputum No Fatigue No Fever No Loss of Appetite No Night Sweats No Persistent Cough > 3 Weeks No Weight Loss No Pre-Op Patient Education NPO after midnight, No jewelry, Responsible [employer] Party, Aware of surgery location, Pre-op education done, 2 bottles CHG wash with instructions given, Instructed to take ordered medications, Total Joint Replacement/Colorectal Book Given SN - Preprocedure Comments Spoke with patient, Verbalizes/Nonverbally indicates understanding, Other: metoprolol Allergies Yes Anesthesia Extension Set Applied Yes Stroke Program Coordinator On Yes Consent Form Signed Yes Patient Dressed In Hospital gown CHG Preoperative Wash/Wipe Night before procedure, Day of procedure, Site specific wipe Preop Nasal Swab Povidone-Iodine CHG Skin Prep Completed for Eligible Surgery History & Physical Update On Chart Yes History & Physical On Chart Yes Obstructive Sleep Apnea Assess Completed Yes Barriers to Learning None evident Teaching Method Explanation, Printed materials Preferred Spoken Language Nicaraguan Preferred Written Language Nicaraguan Teaching Evaluation Verbalizes/Nonverbally indicates understanding Safety Brochure Information Reviewed Unable to complete [facility] Video Viewed No Patient's Current Physicians Patient's Current Physicians History of Malignant Hyperthermia No Discharge To, Anticipated Home independently NPO Status Maintained Prev Test Positive/Diagnosis w/COVID-19 No Current Quarantine/Isolated any Illness No Any Contact with Sick Animals/Birds No Traveled Anywhere in Last 30 Days No Allergy Band on and Verified Yes Patient ID Band on and Verified Yes Implants Verified Yes Pacemaker/AICD Verified Yes Site Verified by Patient/Family Yes Anesthesia Consent Signed Yes Blood Consent Signed Yes Last Fluid Intake 12/23/2024 4:00 Last Food Intake 12/22/2024 18:00 Lost Weight Unintentionally Recently No Eat Poorly Due to Decreased Appetite No Total MST Score 0 N/A Personal Devices, Patient Valuables Glasses Anesthesia/Transfusions Prior anesthesia Admission Note-Nursing Same Day Patient History . Assessment and Plan [place] [employer] Anesthesiologists (ASA) physical status classification: Class III. Anesthetic Preoperative Plan Anesthetic technique: Spinal. Regional: Spinal. Postoperative pain management: adductor canal block. Risks discussed: nausea, vomiting, headache, hypotension, allergic reaction, serious complications. Informed consent: signed by patient. Digitally Signed by CHRISTINA ANDERSON on 12/23/2024 06:41 AM [facility]08-21-2025 Note* Exam Date Time Procedure Performing Provider Status 12/11/24 2:[address] Knee w/o Contrast Right CANELO SE PUJA MARIE; Auth (Verified) [id number] ORIGINAL EXAMINATION: CT OF THE RIGHT KNEE WITHOUT CONTRAST 12/11/2024 2:44 pm TECHNIQUE: CT of the right knee was performed without the administration of intravenous contrast. Multiplanar reformatted images are provided for review. Automated exposure control, iterative reconstruction, and/or weight based adjustment of the mA/kV was utilized to reduce the radiation dose to as low as reasonably achievable. COMPARISON: None. HISTORY ORDERING SYSTEM PROVIDED HISTORY: Reason for Exam: UNILATERAL OSTEOARTHRITIS RIGHT KNEE FINDINGS: Bones: No evidence of acute fracture or dislocation. No aggressive appearing osseous abnormality or periostitis. Soft Tissue: No significant soft tissue edema or fluid collections. Atherosclerotic vascular calcifications. Joint: Moderate to severe medial compartment joint space narrowing, with subchondral sclerosis. Moderate patellofemoral joint space narrowing and marginal osteophytes. Lateral compartment is mostly maintained, with small marginal osteophytes. IMPRESSION: Tricompartmental osteoarthritis worse medially. Moderate effusion Interpreted by: Master Lovelace Preliminary Report By: Master Lovelace Electronically signed By Master Lovelace Dictated Date: 12/11/2024 5:03:05 PM Prelim Date: 12/11/2024 5:05:40 PM Sign Date: 12/11/2024 5:05:40 PM Ordering Provider: SAMREEN MCKNIGHT [facility]08-21-2025 Note* Exam Date Time Procedure Performing Provider Status 12/11/24 2:01 PM Electrocardiogram [AOH] - CV MOHAN ACOSTA MD; Auth (Verified) ECG Final Report Sinus rhythm NORMAL ECG Electronic Signature: VIKKI ACOSTA MD 12/11/2024 19:38:01 [facility]05-08-2025 Evaluation note* Diagnosis Onset Date Resolution Status Admit Date Essential hypertension acute Ma y 2024 2:02pm History of coronary artery b ypass surgery February, acute August 28, 2024 2:02pm Paroxysmal A-fib acute August 28, 2024 2:02pm Pure hypercholesterolemia acute August 28, 2024 2:02pm Cardiac murmur inactive August 28, [address] [facility] Work Phone: 1(600) 565-461001-28-2025 Instructions* Patient Instructions* Farooq Ashton OD - 05/20/2024 11:31 AM EST ASSESSMENT/PLAN: 1. 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 Regular astigmatism, bilateral - ICD9: 367.21, ICD10: H52.223 3. Presbyopia - ICD9: 367.4, ICD10: H52.4 Continue to wear his glasses with the optional update. Continue to monitor his ocular health. Recommended yearly exams. documented in this encounterProm[facility]25 NoteHNO ID: [id number] Author: FAROOQ ASHTON OD Service: ? Author Type: LICENSED PROSTHETIST/ORTHOTIST Type: Progress Notes Filed: 05/20/2024 11:32 Note Text: ASSESSMENT/PLAN: 1. 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 Regular astigmatism, bilateral - ICD9: 367.21, ICD10: H52.223 3. Presbyopia - ICD9: 367.4, ICD10: H52.4 Continue to wear his glasses with the optional update. Continue to monitor his ocular health. Recommended yearly exams. Farooq Ashton OD I have confirmed and edited as necessary the relevant ophthalmic history, ROS, and the neuro exam findings as obtained by others.[facility] 05-20-2024 History of Present illness Narrative* Farooq Ashton OD - 05/20/2024 11:30 AM EST ASSESSMENT/PLAN: 1. 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 Regular astigmatism, bilateral - ICD9: 367.21, ICD10: H52.223 3. Presbyopia - ICD9: 367.4, ICD10: H52.4 Continue to wear his glasses with the optional update. Continue to monitor his ocular health. Recommended yearly exams. Farooq Ashton OD I have confirmed and edited as necessary the relevant ophthalmic history, ROS, and the neuro exam findings as obtained by others. documented in this encounterPromedica [facility] Hospital12-28-2022 Miscellaneous Notes* Telephone Encounter - Wilma Avila RN - 04/19/2022 4:25 PM EST [facility] Center Follow Up Phone Encounter Date: April 19, 2022 Time: 4:25 PM Service Provider: Dr Zee [facility] Reason for call: Follow up Comments: Pt states that he is doing very well since his OHS. He is hoping to start cardiac rehab. mid April. He asked when he could use a chainsaw? I advised him to speak with his gage designer. Wilma Avila RN documented in this encounterPromedica [facility] Hospital11-09-2022 Miscellaneous Notes* Telephone Encounter - Janet Banuelos RN - 03/01/2022 1:01 PM EST Registered Nurse: Janet Banuelos Date: 03/01/2022 1:00:37 PM Call Outcome: All Clear Call Day: 1 Summary: 1. Have you noticed any increased shortness of breath since you left the hospital? (HVI Red Flag Question) No 2. Have you noticed any increased swelling in your feet, ankles or belly? (Heart Failure Red Flag Question) No 3. Have you gained more than 2 - 3 pounds since discharge? (HVI Red Flag Question) N/A Pt did not weigh self 4. Have you noticed any changes to your incision or wound since you were discharged as we want to be aware of any signs of infection? (HVI Red Flag Question) No 5. Are you having any increased pain since discharge? If Yes: What type of pain and where? (HVI RedFlag Question) No 6. Have you had any unplanned trips to the Emergency Department or Hospital since you were discharged? If yes: Why? (Heart Failure Red Flag Question) No 7. Do you have any questions about how to take your medications? (Standard Question) No 8. Have you filled your prescriptions [if no-why? If related to cost - Do you need to be connected to someone who can help you with the cost?] Reminder: Please bring in your medications at your follow up appointment. (HVI Red Flag Question) Yes 9. Do you have a doctor s appointment scheduled or is someone working on getting you a follow-up appointment? (Standard Question) Yes Overall Comments: Pt told that At any time, If you have any questions or concerns - please call to speak to a nurse 13/11. We would rather you seek care early than wait until you are in trouble. Please write down this number - . Pt verified name and documented in this [facility]11-07-2022 Miscellaneous Notes* Telephone Encounter - Fabrice Mckeon - 02/27/2022 9:22 AM ESTSummary: recors in opd file Received 2 pages [facility] Labs documented in this [facility]11-07-2022 Miscellaneous Notes* Telephone Encounter - Fabrice Mckeon - 02/27/2022 8:51 AM ESTSummary: records in opd file Received 2 pages from [facility] Lab documented in this [facility]11-07-2022 Miscellaneous Notes* Telephone Encounter - Fabrice Mckeon - 02/27/2022 8:46 AM ESTSummary: records in opd file Received 3 pages from [facility] lab documented in this [facility]11-05-2022 History of Past illness Narrative* Problem Noted Date Resolved Date Obesity (BMI 30-39.9) 02/25/2022 02/27/2022 Overview: History: pre existing Assessment: Body mass index is 31.13 kg/m . Plan: Encourage and educate on lifestyle changes for Wt Loss during hospital stay. F/u with PCP. Atelectasis 02/25/2022 02/27/2022 Overview: History: postop Assessment: bilateral on xray Plan: OOB to chair, Cough/deep breathing, and PEP Post-op pain 02/24/2022 02/27/2022 Overview: History: Post op Assessment: DIRECTOR OF STRATEGIC MARKETING; Intercostal block; Rectus Sheath Block T6 and T3 Plan: DIRECTOR OF STRATEGIC MARKETING while chest tubes in place. Continue tyelenol & Prn Oxycodone. Stress hyperglycemia 02/24/2022 02/27/2022 Overview: History: Post op cardiac surgery with no hx of DM Assessment: Perioperative insulin resistance and exacerbation of hyperglycemia. Plan: Diet and SSI Pre-op testing 02/21/2022 02/24/2022 Overview: [facility] PRE-OP CHECKLIST CARDIAC PRE OPERATIVE INFORMATION Surgical information Referring Surgeon : Dr. Brionna Zee Date of Surgery: 02/24 Planned Surgery/Procedure: CABG Date patient deemed a candidate for surgery: 02/22/2022 Reasons for delay:none Informed Consent Completed: No STS Score: REDO:No CAD: Yes - CAD on Problem List: Yes Is intended procedure a CABG: Yes - is a beta bibiana ordered? Yes H & P completed: Yes PA/LAT: Pending CT: N/A MRI: N/A LE US: N/A Cath: Yes - reviewed: Yes EKG: Completed Is patient on Amiodarone? No Echo:Completed EF %: 65 PI's: N/A Carotid: Pending Mapping: Pending Dental: CABG PFT's: Pending Recent Labs 02/21/22 1629 02/21/22 0628 WBC 10.45 8.67 HB 15.8 15.4 HCT 47.0 47.3 PLT 272 252 INR 1.0 -- CREAT -- 1.08 UA: pending HCG:N/A ABO/ABO Confirmed: pending Blood ordered: No Willing to accept blood: Yes SA Swab: Yes - results: Pending Last Dose of Anticoagulation: Anticoagulant & Antiplatelet Medications (From admission, onward) Start Dose Route Frequency Last Action Ordered Stop 02/21/22 1600 enoxaparin 40 mg injection (LOVENOX) (enoxaparin injection (LOVENOX)) 40 mg SUBCUTANEOUS EVERY 24 HOURS Given, 02/21 1530 02/20/222051 -- 02/20/22 1500 aspirin 81 mg chewable tab(s) 81 mg ORAL DAILY Given, 02/21 0802/20/22 1434 -- Op Note: N/A Pacer Check: NA Implants: yes: left shoulder replacement DOMINANT HAND: right-handed Consults: none DM: No Cardiac Surgical prep: N/A SIGNATURE: Veronika Joiner APRN.CNP DATE of SERVICE: 02/21/2022 TIME of SERVICE: 5:57 PM CHECKED BY: tammie HORVATH of both shoulders 04/23/2018 02/27/2022 Overview: History: s/p left total shoulder replacement Assessment: No intervention at this time. Plan: f/u with PCP as needed. PT consulted documented as of this encounter (statuses as of 02/27/2022) [facility]11-[facility] History of Past illness Narrative* Problem Noted Date Resolved Date Obesity (BMI 30-39.9) 02/25/2022 02/27/2022 Overview: History: pre existing Assessment: Body mass index is 31.13 kg/m . Plan: Encourage and educate on lifestyle changes for Wt Loss during hospital stay. F/u with PCP. Atelectasis 02/25/2022 02/27/2022 Overview: History: postop Assessment: bilateral on xray Plan: OOB to chair, Cough/deep breathing, and PEP Post-op pain 02/24/2022 02/27/2022 Overview: History: Post op Assessment: DIRECTOR OF STRATEGIC MARKETING; Intercostal block; Rectus Sheath Block T6 and T3 Plan: DIRECTOR OF STRATEGIC MARKETING while chest tubes in place. Continue tyelenol & Prn Oxycodone. Stress hyperglycemia 02/24/2022 02/27/2022 Overview: History: Post op cardiac surgery with no hx of DM Assessment: Perioperative insulin resistance and exacerbation of hyperglycemia. Plan: Diet and SSI Pre-op testing 02/21/2022 02/24/2022 Overview: [facility] PRE-OP CHECKLIST CARDIAC PRE OPERATIVE INFORMATION Surgical information Referring Surgeon : Dr. Brionna Zee Date of Surgery: 02/24 Planned Surgery/Procedure: CABG Date patient deemed a candidate for surgery: 02/22/2022 Reasons for delay:none Informed Consent Completed: No STS Score: REDO:No CAD: Yes - CAD on Problem List: Yes Is intended procedure a CABG: Yes - is a beta bibiana ordered? Yes H & P completed: Yes PA/LAT: Pending CT: N/A MRI: N/A LE US: N/A Cath: Yes - reviewed: Yes EKG: Completed Is patient on Amiodarone? No Echo:Completed EF %: 65 PI's: N/A Carotid: Pending Mapping: Pending Dental: CABG PFT's: Pending Recent Labs 02/21/22 1629 02/21/22 0628 WBC 10.45 8.67 HB 15.8 15.4 HCT 47.0 47.3 PLT 272 252 INR 1.0 -- CREAT -- 1.08 UA: pending HCG:N/A ABO/ABO Confirmed: pending Blood ordered: No Willing to accept blood: Yes SA Swab: Yes - results: Pending Last Dose of Anticoagulation: Anticoagulant & Antiplatelet Medications (From admission, onward) Start Dose Route Frequency Last Action Ordered Stop 02/21/22 1600 enoxaparin 40 mg injection (LOVENOX) (enoxaparin injection (LOVENOX)) 40 mg SUBCUTANEOUS EVERY 24 HOURS Given, 02/21 1530 02/20/222051 -- 02/20/22 1500 aspirin 81 mg chewable tab(s) 81 mg ORAL DAILY Given, 02/21 0802/20/22 1434 -- Op Note: N/A Pacer Check: NA Implants: yes: left shoulder replacement DOMINANT HAND: right-handed Consults: none DM: No Cardiac Surgical prep: N/A SIGNATURE: Veronika Joiner APRN.CNP DATE of SERVICE: 02/21/2022 TIME of SERVICE: 5:57 PM CHECKED BY: tammie HORVATH of both shoulders 04/23/2018 02/27/2022 Overview: History: s/p left total shoulder replacement Assessment: No intervention at this time. Plan: f/u with PCP as needed. PT consulted documented as of this encounter (statuses as of 03/01/2022) [facility] History of Past illness Narrative* Problem Noted Date Resolved Date Obesity (BMI 30-39.9) 02/25/2022 02/27/2022 Overview: History: pre existing Assessment: Body mass index is 31.13 kg/m . Plan: Encourage and educate on lifestyle changes for Wt Loss during hospital stay. F/u with PCP. Atelectasis 02/25/2022 02/27/2022 Overview: History: postop Assessment: bilateral on xray Plan: OOB to chair, Cough/deep breathing, and PEP Post-op pain 02/24/2022 02/27/2022 Overview: History: Post op Assessment: DIRECTOR OF STRATEGIC MARKETING; Intercostal block; Rectus Sheath Block T6 and T3 Plan: DIRECTOR OF STRATEGIC MARKETING while chest tubes in place. Continue tyelenol & Prn Oxycodone. Stress hyperglycemia 02/24/2022 02/27/2022 Overview: History: Post op cardiac surgery with no hx of DM Assessment: Perioperative insulin resistance and exacerbation of hyperglycemia. Plan: Diet and SSI Pre-op testing 02/21/2022 02/24/2022 Overview: [facility] PRE-OP CHECKLIST CARDIAC PRE OPERATIVE INFORMATION Surgical information Referring Surgeon : Dr. Brionna Zee Date of Surgery: 02/24 Planned Surgery/Procedure: CABG Date patient deemed a candidate for surgery: 02/22/2022 Reasons for delay:none Informed Consent Completed: No STS Score: REDO:No CAD: Yes - CAD on Problem List: Yes Is intended procedure a CABG: Yes - is a beta bibiana ordered? Yes H & P completed: Yes PA/LAT: Pending CT: N/A MRI: N/A LE US: N/A Cath: Yes - reviewed: Yes EKG: Completed Is patient on Amiodarone? No Echo:Completed EF %: 65 PI's: N/A Carotid: Pending Mapping: Pending Dental: CABG PFT's: Pending Recent Labs 02/21/22 1629 02/21/22 0628 WBC 10.45 8.67 HB 15.8 15.4 HCT 47.0 47.3 PLT 272 252 INR 1.0 -- CREAT -- 1.08 UA: pending HCG:N/A ABO/ABO Confirmed: pending Blood ordered: No Willing to accept blood: Yes SA Swab: Yes - results: Pending Last Dose of Anticoagulation: Anticoagulant & Antiplatelet Medications (From admission, onward) Start Dose Route Frequency Last Action Ordered Stop 02/21/22 1600 enoxaparin 40 mg injection (LOVENOX) (enoxaparin injection (LOVENOX)) 40 mg SUBCUTANEOUS EVERY 24 HOURS Given, 02/21 1530 02/20/222051 -- 02/20/22 1500 aspirin 81 mg chewable tab(s) 81 mg ORAL DAILY Given, 02/21 0829 02/20/22 1434 -- Op Note: N/A Pacer Check: NA Implants: yes: left shoulder replacement DOMINANT HAND: right-handed Consults: none DM: No Cardiac Surgical prep: N/A SIGNATURE: Veronika Joiner APRN.CNP DATE of SERVICE: 02/21/2022 TIME of SERVICE: 5:57 PM CHECKED BY: tammie HORVATH of both shoulders 04/23/2018 02/27/2022 Overview: History: s/p left total shoulder replacement Assessment: No intervention at this time. Plan: f/u with PCP as needed. PT consulted documented as of this encounter (statuses as of 04/26/2022) [facility] History of Present illness Narrative* Jacquelyn Mcdonnell - 02/23/2022 8:00 AM EDT PULM FUNCTION SMARTBLOCK: Provider: Veronika Joiner APRN.CNP Inpatient: Yes Spirometry: 1 documented in this encounterPromedica [facility] Hospital11-01-2022 History of Present illness Narrative* Veronika Joiner APRN.CNP - 02/21/2022 6:02 PM EDT AMBULATORY PATIENT EDUCATION READINESS TO LEARN Cognitive Ability: Alert and oriented Motivation To Learn: Interested Family Support: High - Very involved in pt care Instruction Provided To: Patient & Family Patient Learns Best By: Multiple Methods Factors Affecting Learning: None Physical Limitations Affecting Learning: None LEARNING RESPONSE Diagnosis: CAD Education Topic: Pre-Op Open Heart Surgery Instructions Teaching Points: Logistics / Protocols /Complication Prevention How prepared do you feel you are for this visit: Instruction/Supplemental Materials: Cardiac Surgery Information Binder Individual Instruction Patient/Family Response: Follow up plan: Patient/Family will call the Resource Center at with any further questions Referral (Recommendation): None Teach completed, topic: CABG documented in this encounterPromedica Memorial HospitalEvaluation + Plan note Future Appointments [facility] Evaluation note* Diagnosis Onset Date Resolution Status Angina pectoris acute Cardiac murmur acute Chest pain acute Coronary artery calcification acute Essential hypertension acute Pure hypercholesterolemia ac [place]ak Abnormal stress test acute Angina pectoris acute CAD (coronary artery disease) acute Cardiac dysrhythmia acute Cardiac murmur acute Coronary artery calcification acute Essential hypertension acute Pure hypercholesterolemia ac eyak [facility] Work Phone: Evaluation note* Diagnosis Pre-op testing- Primary Preoperative examination, unspecified Coronary artery disease involving coronary bypass graft with unstable angina pectoris, unspecified whether [place] or transplanted heart (HCC) documented in this encounter [facility]* Diagnosis Onset Date Resolution Status Angina pectoris acute Cardiac murmur acute Chest pain acute Coronary artery calcification acute Essential hypertension acute Pure hypercholesterolemia ac [place] Angina pectoris acute CAD (coronary artery disease) acute Cardiac dysrhythmia acute Cardiac murmur acute Coronary artery calcification acute Essential hypertension acute Pure hypercholesterolemia ac [place] Abnormal stress test resolve d [facility] Work Phone: Evaluation note* Diagnosis Hyperopia, bilateral- Primary Regular astigmatism, bilateral Presbyopia documented in this encounter [facility] HospitalEvaluation noteNo assessment information availableWCleveland Clinic [facility] Work Phone: Hospital course Narrative No data available for this section [facility] Hospital Discharge instructions No data available for this section [facility] Progress note No data available for this section [facility] Reason for referral (narrative)No reason for referral information availableWCleveland Clinic [facility] Work Phone: Summary Purpose Family History Relationship Condition Age at Onset Recorded Date/T jimena mother Malignant neoplasm of breast Unknown Advance Directives Documents on File Type Date 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 Advance Directive(s) 02/20/2022 1:49 PM Date Activated Date Inactivated Comments 02/20/2022 4:05 PM 02/24/2022 4:38 PM Question Answer Comments Full Code Order Discussed With: Patient Documents on File Type Date 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 Advance Directives and Living Will Documents on File Type Date 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 Advance Directives and Living Will Advance Directive Response Recorded Date/ Time Advance Directives on File No Octob er 2021 10:43am Name of Medical Power of Outpatient Physical Therapist Assistant [facility] February 17, 2022 12:47pm Advance Directives Yes February 17, 2022 10:43am Living Will Yes February 17 12:47pm Power of Outpatient Physical Therapist Assistant Yes February 17, 2022 12:47pm Latest Code Status on File Code Status Date Activated Date Inactivated Comments Full Code 02/20/2022 4:05 PM Full Code Order Discussed With: Patient Latest Code Status on File Code Status Date Activated Date Inactivated Comments Full Code 02/20/2022 4:05 PM 02/24/2022 4:38 PM Advance Directive Response Recorded Date/ Time Advance Directives on File No Octob er 2021 9:43am Name of Medical Power of Outpatient Physical Therapist Assistant [facility] February 17, 2022 11:47am Advance Directives Yes February 17, 2022 9:43am Living Will Yes February 17 11:47am Power of Outpatient Physical Therapist Assistant Yes February 17, 2022 11:47am Advance Directive Response Recorded Date/ Time Advance Directives Yes February 17, 2022 10:43am Reason for Referral Status Reason Specialty Diagnoses / Procedures Referred By Contact Referred To Contact Authorized Physical Therapy / Rehabilitation Diagnoses Complete tear of left rotator cuff Sue Shine MD [address] [place] [address] History of Present Illness * Sue Shine MD - 09/30/2018 9:28 AM EDT Dictation on: 09/30/2018 9:30 AM by: SUE SHINE [[email or web address]] documented in this encounter Assessments Diagnosis Closed fracture of distal ends of left radius and ulna with routine healing, subsequent encounter- Primary Complete tear of left rotator cuff Chief Complaint and Reason for Visit Chief Complaint Amb Documentation CP/REF. TOMCHAK angina FAILED STRESS TEST FAILED STRESS TEST FAILED STRESS TEST FAILED STRESS TEST Reason for Visit Angina pectoris Cardiac murmur Chest pain Coronary artery calcification Essential hypertension Pure hypercholesterolemia Abnormal stress test Angina pectoris CAD (coronary artery disease) Cardiac dysrhythmia Cardiac murmur Coronary artery calcification Essential hypertension Pure hypercholesterolemia Chief Complaint Amb Documentation CP/REF. TOMCHAK angina FAILED STRESS TEST FAILED STRESS TEST FAILED STRESS TEST FAILED STRESS TEST TACHYCARDIA, S/P BYPASS SURGERY Amb Documentation Reason for Visit Angina pectoris Cardiac murmur Chest pain Coronary artery calcification Essential hypertension Pure hypercholesterolemia Angina pectoris CAD (coronary artery disease) Cardiac dysrhythmia Cardiac murmur Coronary artery calcification Essential hypertension Pure hypercholesterolemia Abnormal stress test Chief Complaint Admit Date 6 M FU August 28, 2024 2:02pm CARDIAC MURMUR, UNSPECIFIED October 07, 2 025 1:34pm Reason for Visit Admit Date Essential hypertension August 28, 2024 2:0 2pm History of coronary artery bypass surger y August 28, 2024 2:02pm Paroxysmal A-fib August 28, 2024 2:02pm Pure hypercholesterolemia August 28, 2024 2:02pm Cardiac murmur August 28, 2024 2:02pm Chief Complaint Admit Date CARDIAC MURMUR, UNSPECIFIED October 07, 2 025 1:34pm RLE SWELLING January 22, 2025 12 :49pm Chief Complaint Admit Date RLE SWELLING January 22, 2025 12 :49pm PAIN RIGHT LEG January 30, 2025 1 0:05am Additional Source Comments (unrecognized sect ion and content) No Status Records FoundNo Status Records FoundNo Status Records FoundNo Status Records FoundNo Status Records FoundNo Status Records FoundNo Status Records FoundNo Status Records FoundNo Status Records FoundNo Status Records FoundNo Status Records FoundNo Status Records Found INFORMATION SOURCE (unrecogn ized section and content) DATE CREATED AUTHOR 10/16/2017 [facility] DATE CREATED AUTHOR AUTHOR'S ORGANIZ ATION 09/30/2018 [facility] DATE CREATED AUTHOR AUTHOR'S ORGANIZ ATION 06/05/2019 [facility] ([place] DATE CREATED AUTHOR AUTHOR'S ORGANIZ ATION 02/02/2021 [facility] DATE CREATED AUTHOR AUTHOR'S ORGANIZ ATION 11/28/2021 [facility] DATE CREATED AUTHOR AUTHOR'S ORGANIZ ATION 10/03/2022 [facility] DATE CREATED AUTHOR AUTHOR'S ORGANIZ ATION 02/12/2023 [facility] DATE CREATED AUTHOR AUTHOR'S ORGANIZ ATION 11/27/2023 [facility] DATE CREATED AUTHOR AUTHOR'S ORGANIZ ATION 05/21/2024 [facility] DATE CREATED AUTHOR AUTHOR'S ORGANIZ ATION 12/31/2024 [facility] DATE CREATED AUTHOR AUTHOR'S ORGANIZ ATION 01/01/2025 [facility] DATE CREATED AUTHOR AUTHOR'S ORGANIZ ATION 02/15/2025 [facility] Reason for Visit (unrecogniz ed section and content) Reason Comments Pain Fracture Reason Comments Patient Education Reason Comments Spirometry Specialty Diagnoses / Procedures Referred By Chantal bull Referred To Contact HOSP INPATIENT Diagnoses Unstable angina Procedures EVAL AND TREAT - PT Hosp [facility] [id number] [place] [address] Referral ID Status Reason Start Date Expiration Date Visits Re quested Visits Authorized [id number] 1 Reason Comments [facility] RECS VIA FAX Reason Comments [facility] LABS VIA FAX Reason Comments Opened In Error Reason Comments Follow Up Phone Call Relate care dischar ge follow [id number] Reason Comments Post Dc Program Call - Fyi Reason Comments Yearly Exam <item> Privacy Markings (unrecogniz ed section and content) Section Author: Maria Isabel Andrews PROHIBITION ON REDISCLOSURE OF CONFIDENTIAL INFORMATION This notice accompanies a disclosure of information concerning a client made to you with the consent of such client. 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 Relationship Specialty Start Date End Date Rina Johnson CNP [address] [place] [address] PCP - General Family Medicine 05/20/24 Gabriela Conroy MD [address] [place] [address] Hotel Guest Service Agent Family Medicine 05/14/22 Team Status: Active Member Role Status Dates Rina Johnson NP, PHARMACEUTICAL PLANT OPERATOR-C Primary Care Provider Active Team Status: Inactive Member Role Status Dates Rina Johnson NP PHARMACEUTICAL PLANT OPERATOR-C Primary Care Provider Active Start: August 28, 2024 End: August 28, 2024 Rina Johnson NP PHARMACEUTICAL PLANT OPERATOR-C Referring Provider Active S tart: August 28, 2024 End: August 28, 2024 Jennifer Thornton PA, PA Attending Provider Active Start: August 28, 2024 End: August 28, 2024 Team Status: Inactive Member Role Status Dates Rina Alex PHARMACEUTICAL PLANT OPERATOR, PHARMACEUTICAL PLANT OPERATOR-C Primary Care Provider Active Start: October 07, 2024 End: October 07, 2024 Jennifer PRESSLEY PA Attending Provider Active Start: October 07, 2024 End: October 07, 2024 Jennifer Thornton PA PA Referring Provider Active Start: October 07, 2024 End: October 07, 2024 Team Status: Active Member Role Status Dates Rina Johnson PHARMACEUTICAL PLANT OPERATOR, PHARMACEUTICAL PLANT OPERATOR-C Primary Care Provider Active Start: October 07, 2024 Dr. Néstor Lopez MD Attending Provider Active S tart: October 07, 2024 Team Status: Active Member Role/Relationship Status Dates Rina Johnson PHARMACEUTICAL PLANT OPERATOR, PHARMACEUTICAL PLANT OPERATOR-C Primary care physician Active Team Status: Inactive Member Role/Relationship Status Dates Rina Johnson PHARMACEUTICAL PLANT OPERATOR, PHARMACEUTICAL PLANT OPERATOR-C Primary care physician Active Start: October 07, 2024 End: October 07, 2024 Jennifer PRESSLEY PA Attending physician Active Start: October 07, 2024 End: October 07, 2024 Jennifer PRESSLEY PA Referring Provider Active Start: October 07, 2024 End: October 07, 2024 Team Status: Active Member Role/Relationship Status Dates Rina Johnson PHARMACEUTICAL PLANT OPERATOR, PHARMACEUTICAL PLANT OPERATOR-C Primary care physician Active Start: October 07, 2024 Dr. Néstor Lopez MD Attending physician Active Start: October 07, 2024 Team Status: Active Member Role/Relationship Status Dates Rina Johnson PHARMACEUTICAL PLANT OPERATOR, PHARMACEUTICAL PLANT OPERATOR-C Primary care physician Active Start: January 22, 2025 Dr. Samreen Mcknight MD Attending physician Active Start: January 22, 2025 Dr. Samreen Mcknight MD Referring Provider Active Start: January 22, 2025 Team Status: Active Member Role/Relationship Status Dates Rina Johnson PHARMACEUTICAL PLANT OPERATOR, PHARMACEUTICAL PLANT OPERATOR-C Primary care physician Active Start: January 22, 2025 Dr. Daniel Samuels MD Attending physician Active Start: January 22, 2025 Team Status: Inactive Member Role/Relationship Status Dates Rina Johnson PHARMACEUTICAL PLANT OPERATOR, PHARMACEUTICAL PLANT OPERATOR-C Primary care physician Active Start: January 22, 2025 End: January 22, 2025 Dr. Samreen Mcknight MD Attending physician Active Start: January 22, 2025 End: January 22, 2025 Dr. Samreen Mcknight MD Referring Provider Active Start: January 22, 2025 End: January 22, 2025 Team Status: Active Member Role/Relationship Status Dates Rina Johnson NP, PHARMACEUTICAL PLANT OPERATOR-C Primary care physician Active Start: January 22, 2025 Dr. Daniel Samuels MD Attending physician Active Start: January 22, 2025 Dr. Samreen Mcknight MD Referring Provider Active Start: January 22, 2025 Team Status: Inactive Member Role/Relationship Status Dates Rina Johnson NP, PHARMACEUTICAL PLANT OPERATOR-C Primary care physician Active Start: January 30, 2025 End: January 30, 2025 Dr. Samreen Mcknight MD Attending physician Active Start: January 30, 2025 End: January 30, 2025 Dr. Samreen Mcknight MD Referring Provider Active Start: January 30, 2025 End: January 30, 2025 Source Comments (unrecognize d section and content) In the event this informatio n is protected by the Federal Confidentiality of Alcohol and Drug Abuse Patient Records regulations: The Federal rules restrict any use of the information to criminally investigate or prosecute any alcohol or drug abuse patient.[facility] the event this information is protected by the Federal Confidentiality of Alcohol and Drug Abuse Patient Records regulations: The Federal rules restrict any use of the information to criminally investigate or prosecute any alcohol or drug abuse patient.[facility] the event this information is protected by the Federal Confidentiality of Alcohol and Drug Abuse Patient Records regulations: The Federal rules restrict any use of the information to criminally investigate or prosecute any alcohol or drug abuse patient.[facility] the event this information is protected by the Federal Confidentiality of Alcohol and Drug Abuse Patient Records regulations: The Federal rules restrict any use of the information to criminally investigate or prosecute any alcohol or drug abuse patient.[facility] the event this information is protected by the Federal Confidentiality of Alcohol and Drug Abuse Patient Records regulations: The Federal rules restrict any use of the information to criminally investigate or prosecute any alcohol or drug abuse patient.[facility] the event this information is protected by the Federal Confidentiality of Alcohol and Drug Abuse Patient Records regulations: The Federal rules restrict any use of the information to criminally investigate or prosecute any alcohol or drug abuse patient.[facility] the event this information is protected by the Federal Confidentiality of Alcohol and Drug Abuse Patient Records regulations: The Federal rules restrict any use of the information to criminally investigate or prosecute any alcohol or drug abuse patient.[facility] the event this information is protected by the Federal Confidentiality of Alcohol and Drug Abuse Patient Records regulations: The Federal rules restrict any use of the information to criminally investigate or prosecute any alcohol or drug abuse patient.[facility] the event this information is protected by the Federal Confidentiality of Alcohol and Drug Abuse Patient Records regulations: The Federal rules restrict any use of the information to criminally investigate or prosecute any alcohol or drug abuse patient.[facility] Goals (unrecognized section and content) Goals may be documented in a n alternate section No data available for this section No data available for this section No data available for this sectionGoals may be documented in an alternate sectionGoals may be documented in an alternate section FOR RECORDS PERTAINING TO PATIENTS WHO ARE OR HAVE BEEN ENROLLED IN A CHEMICAL DEPENDENCY/SUBSTANCEABUSE PROGRAM, SOME INFORMATION MAY BE OMITTED. This clinical summary was aggregated from multiple sources. Caution should be exercised in using it in the provision of clinical care. This summary normalizes information from multiple sources, and as a consequence, information in this document may materially change the coding, format and clinical context of patient data. In addition, data may be omitted in some cases. CLINICAL DECISIONS SHOULD BE BASED ON THE PRIMARY CLINICAL RECORDS. [facility] [employer] [facility] provides no warranty or guarantee of the accuracy or completeness of information in this document.
[2025-03-20 11:27] LABS: Hematocrit 39.4 % (40-54); Hemoglobin 12.6 g/dL (13.0-16.5); Immature Granulocytes Count 0.040 X10^3/uL (0.0-0.0); Mean Corp Hgb Conc 32.0 g/dL (32-36); Mean Corpuscular Volume 86.0 fL (80-94); Mean Platelet Vol. 9.5 fl (6.2-12.0); NRBC Flagged by Analyzer 0 % (0-5); Platelet Count 278 K/mm3 (150-450); RBC Distribution Width CV 15.1 % (11.6-14.6); RBC Distribution Width SD 47.8 fl (35.1-43.9); Red Blood Count 4.58 M/mm3 (4.6-6.2); White Blood Count 8.3 K/mm3 (4.4-11.0)
[2025-03-20 12:41] LABS: CRP < 3.00 mg/L (0.0-3.0)
== END | disposition home or self-care (01) ==
LOC: LAB 10:27
PROVIDERS: PCP Nurse Practitioner Family; Referring Provider Physician Assistant Surgical; Visit Provider Physician Assistant Surgical
DX: M25.461 Effusion, right knee (principal); Z96.651 Presence of right artificial knee joint
CPT/HCPCS: 36415; 85025; 85652; 86140